=== PATIENT | male | born 1960 | race Caucasian/White ===

== ENCOUNTER 2018-03-02 15:50 | Emergency (ER) | payer MEDICARE, MEDICAID, SELFPAY ==
[2018-03-02 15:55] VITALS: BP 129/85; PULSE 84; RESP 16; TEMP 36.7; O2SAT 99
--- NOTE | 2018-03-02 17:19 | W.ED.GENAD ---
Discharge Plan Disposition Patient Disposition: HOME Condition: Fair Discharge Details Chief Complaint: Orthopedic Clinical Impression: Elbow pain, Right tennis elbow Primary Care Provider: Sedrick Brand ED Provider: Carlota Simms Home Meds and New Rx's Prescriptions: New ibuprofen 600 mg tablet 600 mg PO QID PRN (Reason: pain) Qty: 20 RF: 0 Continue levalbuterol tartrate [Xopenex HFA] 1 PUFF HFA aerosol inhaler 2 puff Inhalation .Q 6 HRS PRN RF: 0 nortriptyline 25 MG capsule 50 mg PO HS RF: 0 Discharge Instructions Instructions: Tennis Elbow Exercises (GEN), Tennis Elbow (ED) Additional Instructions: Encourage rest, ice, elevation. Tylenol (acetaminophen) 1000 mg every 6 hours as needed for discomfort. Please do not exceed 4000 mg of Tylenol daily. You may augment this with ibuprofen as prescribed, he may take 600 mg every 6 hours as needed for discomfort. Over the counter splint as discussed, this may be a strap splint as discussed. Please follow up within the next week for reevaluation with your primary care. If you develop fevers/chills, swelling, redness, increased pain or other new/worsening symptoms please seek care urgently once again. Referrals: Sedrick Brand MD [Primary Care Provider] - Discharge Data Discharge Date/Time-TO BE ENTERED AT DEPARTURE: 03/02/18 17:32 Medical Decision Making Patient presents today with c/c of right elbow pain x3 days. Reports that pain was of incidious onset. He points to the olecranon as area of discomfort but on exam, pain seems to be maximal over the lateral epicondyle. Has pain elicitied with supination against resistence. Full ROM, strength 5/5 in other testing. No palpable or visible deformity. No erythema, warmth or swelling. Patient afebrile and nontoxic appearing. Reports he feels otherwise well. 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 I am quesitoning if his repeatative movemens have caused onset of lateral epicondylitis as history and exam fit most closely with this diagnosis. Patient and I discussed bracing options, we do not carry the forearm strap that we have decided on to help with discomfort. Encouraged RICE We discussed new/worsening symptoms and when to seek care urgently once again. Advised f/u with PCP in one week forreevaluation if not immproved. Discussed the use of NSAIDS to help with inflammatory based process, patient and I did discuss pathology and expected course. Discussed activites to avoid. All of his questions and concerns were addressed, he isin agreement with this plan. When nursing staff discharged the patient he expressed being upset over his continued discomfort. Advised that I should have cut my arm off and I would get more disablity. I did not hear the patient say this nor was I aware he was still upset. Will attempt to call at home to reassure. HPI General Mode of arrival: ambulatory. Date/Time Provider Initiated Documentation: 03/02/18 16:10. Limitations to Documentation: no limitations. Information obtained by: patient. History of Present Illness 57 year old M presents to the emergency department with the chief complaint of right elbow pain, described as moderate, with intensity rated at 8. Quality is described as aching, and is localized to the right and upper extremity. Patient reports no radiation. Related Data Home Medications Medication Instructions Recorded Confirmed levalbuterol tartrate [Xopenex Hfa] 2 puff INHALATION .Q 6 HRS PRN 10/28/12 03/02/18 nortriptyline 50 mg PO HS 07/16/14 03/02/18 ibuprofen 600 mg PO QID PRN #20 tab 03/02/18 Previous Rx's Medication Instructions Recorded ibuprofen 600 mg PO QID PRN #20 tab 03/02/18 Allergies Allergy/AdvReac Type Severity Reaction Status Date / Time aspirin Allergy Intermediate Skin Rash Unverified 09/01/17 17:40 crab Allergy Anaphylaxsi Unverified 09/01/17 17:40 s hydrocodone [Hydrocodone] AdvReac Severe dizzy and Unverified 09/01/17 17:40 nausea lobster Allergy Anaphylaxsi Uncoded 09/01/17 17:40 s General Stated Complaint: Orthopedic BRAEDEN: 4 Review of Systems Constitutional Reports as per HPI, Denies chills, Denies fever(s), Denies headache(s) and Denies weakness ENT Denies headache(s) Respiratory Denies cough Musculoskeletal Reports as per HPI, Denies joint swelling, Denies limited range of motion, Denies numbness and Denies tingling Integumentary/Breasts Denies erythema, Denies rash, Denies skin pain, Denies skin swelling and Denies skin ulcer Neurologic Denies headache(s), Denies focal weakness, Denies numbness, Denies radicular pain, Denies sensory deficit, Denies tingling, Denies paresthesias and Denies weakness [facility] Social History Smoking/Tobacco Use Status: Current every day Exam Const General: cooperative, healthy appearing, comfortable, no acute distress, well developed and well groomed Nutritional Appearance: average body habitus Orientation: alert and awake Resp Effort & Inspection: normal respiratory effort, able to speak in complete sentences and no respiratory distress Cardio Rate: regular rate Rhythm: regular rhythm Skin General skin exam: no rashes or lesions noted, no ecchymosis, no erythema, no fluctuance and no induration Lesions: no lesions Rashes: no rashes Trauma: no lacerations or abrasions Neuro General: alert and awake Cognition: normal cognition Speech: speech normal Gait: normal gait Motor: muscle tone normal throughout and strength not 5/5 throughout (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 5/5 extension and flexion against ressitence of the right elbow. 5/5 pronation. With supination,, he has a sudden onset of discomfor limiting his strength to 4/5) Sensory Exam: no sensory deficits noted Extrem General: full ROM (right elbow, wrist, hand), normal capillary refill, normal exam except as noted, no joint enlargement, no clubbing, cyanosis or edema and normal gait Right upper extremity: full ROM, normal capillary refill, no joint enlargement and elbow/forearm Details: normal to inspection, tenderness Location: of the olecranon (this is area patient points to as area of discomfort but none elicited with palpation. No welling, erythema or warmth. no break in the skin), of the lateral epicondyle Details: with resisted supination and proximal forearm; not of the antecubital fossa, not of the mid-shaft forearm and not of the medial epicondyle, normal ROM and distal pulses intact; no swelling, no unusual warmth, no abrasions, no lacerations, no ecchymosis, no crepitus, no foreign bodies and no deformity Psych Appearance: grossly normal and well kempt Mental Status: mental status grossly normal Speech and Movement: speech and movement normal Course Vital Signs Temperature 36.7 C 03/02/18 15:55 Pulse 84 03/02/18 15:55 Respiratory Rate 16 03/02/18 15:55 Blood Pressure 129/85 03/02/18 15:55 Pulse Oximetry 99 03/02/18 15:55 Temperature 36.7 C 03/02/18 15:55 Temperature Source Temporal Artery Scan 03/02/18 15:55 Pulse 84 03/02/18 15:55 Respiratory Rate 16 03/02/18 15:55 Respiratory Effort 03/02/18 15:57 Blood Pressure 129/85 03/02/18 15:55 Blood Pressure Position Sitting 03/02/18 15:55 Pulse Oximetry 99 03/02/18 15:55 Oxygen Delivery Method Room Air 03/02/18 15:55 Oxygen Flow Rate 0 03/02/18 15:55 Pain Level 8 03/02/18 15:55
--- NOTE | 2018-03-02 17:22 | ED.GENADUL_ITS ---
Discharge Plan Disposition Patient Disposition: HOME Condition: Fair Discharge Details Chief Complaint: Orthopedic Clinical Impression: Elbow pain, Right tennis elbow Primary Care Provider: Sedrick Brand ED Provider: Carlota Simms Home Meds and New Rx's Prescriptions: New ibuprofen 600 mg tablet 600 mg PO QID PRN (Reason: pain) Qty: 20 RF: 0 Continue levalbuterol tartrate [Xopenex HFA] 1 PUFF HFA aerosol inhaler 2 puff Inhalation .Q 6 HRS PRN RF: 0 nortriptyline 25 MG capsule 50 mg PO HS RF: 0 Discharge Instructions Instructions: Tennis Elbow Exercises (GEN), Tennis Elbow (ED) Additional Instructions: Encourage rest, ice, elevation. Tylenol (acetaminophen) 1000 mg every 6 hours as needed for discomfort. Please do not exceed 4000 mg of Tylenol daily. You may augment this with ibuprofen as prescribed, he may take 600 mg every 6 hours as needed for discomfort. Over the counter splint as discussed, this may be a strap splint as discussed. Please follow up within the next week for reevaluation with your primary care. If you develop fevers/chills, swelling, redness, increased pain or other new/worsening symptoms please seek care urgently once again. Referrals: Sedrick Brand MD [Primary Care Provider] - Discharge Data Discharge Date/Time-TO BE ENTERED AT DEPARTURE: 03/02/18 17:32 Medical Decision Making Patient presents today with c/c of right elbow pain x3 days. Reports that pain was of incidious onset. He points to the olecranon as area of discomfort but on exam, pain seems to be maximal over the lateral epicondyle. Has pain elicitied with supination against resistence. Full ROM, strength 5/5 in other testing. No palpable or visible deformity. No erythema, warmth or swelling. Patient afebrile and nontoxic appearing. Reports he feels otherwise well. 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 I am quesitoning if his repeatative movemens have caused onset of lateral epicondylitis as history and exam fit most closely with this diagnosis. Patient and I discussed bracing options, we do not carry the forearm strap that we have decided on to help with discomfort. Encouraged RICE We discussed new/worsening symptoms and when to seek care urgently once again. Advised f/u with PCP in one week forreevaluation if not immproved. Discussed the use of NSAIDS to help with inflammatory based process, patient and I did discuss pathology and expected course. Discussed activites to avoid. All of his questions and concerns were addressed, he isin agreement with this plan. When nursing staff discharged the patient he expressed being upset over his continued discomfort. Advised that I should have cut my arm off and I would get more disablity. I did not hear the patient say this nor was I aware he was still upset. Will attempt to call at home to reassure. HPI General Mode of arrival: ambulatory . Date/Time Provider Initiated Documentation: 03/02/18 16:10 . Limitations to Documentation: no limitations . Information obtained by: patient . History of Present Illness 57 year old M presents to the emergency department with the chief complaint of right elbow pain, described as moderate, with intensity rated at 8. Quality is described as aching, and is localized to the right and upper extremity. Patient reports no radiation. Related Data Home Medications Medication Instructions Recorded Confirmed levalbuterol tartrate [Xopenex Hfa] 2 puff INHALATION .Q 6 HRS PRN 10/28/1212/11 nortriptyline 50 mg PO HS 07/16/14 03/02/18 ibuprofen 600 mg PO QID PRN #20 tab 03/02/18 Previous Rx's Medication Instructions Recorded ibuprofen 600 mg PO QID PRN #20 tab 03/02/18 Allergies Allergy/AdvReac Type Severity Reaction Status Date / Time aspirin Allergy Intermediate Skin Rash Unverified 09/01/17 17:40 crab Allergy Anaphylaxsi Unverified 09/01/17 17:40 s hydrocodone [Hydrocodone] AdvReac Severe dizzy and Unverified 09/01/17 17:40 nausea lobster Allergy Anaphylaxsi Uncoded 09/01/17 17:40 s General Stated Complaint: Orthopedic BRAEDEN: 4 Review of Systems Constitutional Reports as per HPI, Denies chills, Denies fever(s), Denies headache(s) and Denies weakness ENT Denies headache(s) Respiratory Denies cough Musculoskeletal Reports as per HPI, Denies joint swelling, Denies limited range of motion, Denies numbness and Denies tingling Integumentary/Breasts Denies erythema, Denies rash, Denies skin pain, Denies skin swelling and Denies skin ulcer Neurologic Denies headache(s), Denies focal weakness, Denies numbness, Denies radicular pain, Denies sensory deficit, Denies tingling, Denies paresthesias and Denies weakness [facility] Social History Smoking/Tobacco Use Status: Current every day Exam Const General: cooperative, healthy appearing, comfortable, no acute distress, well developed and well groomed Nutritional Appearance: average body habitus Orientation: alert and awake Resp Effort & Inspection: normal respiratory effort, able to speak in complete sentences and no respiratory distress Cardio Rate: regular rate Rhythm: regular rhythm Skin General skin exam: no rashes or lesions noted, no ecchymosis, no erythema, no fluctuance and no induration Lesions: no lesions Rashes: no rashes Trauma: no lacerations or abrasions Neuro General: alert and awake Cognition: normal cognition Speech: speech normal Gait: normal gait Motor: muscle tone normal throughout and strength not 5/5 throughout (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 5/5 extension and flexion against ressitence of the right elbow. 5/5 pronation. With supination,, he has a sudden onset of discomfor limiting his strength to 4/5) Sensory Exam: no sensory deficits noted Extrem General: full ROM (right elbow, wrist, hand), normal capillary refill, normal exam except as noted, no joint enlargement, no clubbing, cyanosis or edema and normal gait Right upper extremity: full ROM, normal capillary refill, no joint enlargement and elbow/forearm Details: normal to inspection, tenderness Location: of the olecranon (this is area patient points to as area of discomfort but none elicited with palpation. No welling, erythema or warmth. no break in the skin), of the lateral epicondyle Details: with resisted supination and proximal forearm ; not of the antecubital fossa, not of the mid-shaft forearm and not of the medial epicondyle, normal ROM and distal pulses intact; no swelling, no unusual warmth, no abrasions, no lacerations, no ecchymosis, no crepitus, no foreign bodies and no deformity Psych Appearance: grossly normal and well kempt Mental Status: mental status grossly normal Speech and Movement: speech and movement normal Course Vital Signs Temperature 36.7 C 03/02/18 15:55 Pulse 84 03/02/18 15:55 Respiratory Rate 16 03/02/18 15:55 Blood Pressure 129/85 03/02/18 15:55 Pulse Oximetry 99 03/02/18 15:55 Temperature 36.7 C 03/02/18 15:55 Temperature Source Temporal Artery Scan 03/02/18 15:55 Pulse 84 03/02/18 15:55 Respiratory Rate 16 03/02/18 15:55 Respiratory Effort 03/02/18 15:57 Blood Pressure 129/85 03/02/18 15:55 Blood Pressure Position Sitting 03/02/18 15:55 Pulse Oximetry 99 03/02/18 15:55 Oxygen Delivery Method Room Air 03/02/18 15:55 Oxygen Flow Rate 0 03/02/18 15:55 Pain Level 8 03/02/18 15:55
== END 2018-03-02 17:32 | disposition home or self-care (01) ==
PROVIDERS: Emergency Provider Physician Assistant; PCP General Practice
DX: M77.11 Lateral epicondylitis, right elbow (principal)
CPT/HCPCS: 99282

== ENCOUNTER 2018-03-07 08:36 | Emergency (ER) | payer MEDICARE, MEDICAID, SELFPAY ==
[2018-03-07] VITALS (20 sets, daily range): BP systolic 102–132; BP diastolic 74–85; PULSE 66–91; RESP 6–20; TEMP 36.6–36.7; O2SAT 93–99
--- NOTE | 2018-03-07 08:58 | DI.RAD_ITS ---
SYMPTOM/DIAGNOSIS: CHEST PAIN PA AND LATERAL CHEST: Comparison is made with 05/21/13. The heart size is normal. The lungs appear somewhat hyperinflated but are otherwise clear. No pneumothorax, infiltrate or effusion is seen. IMPRESSION: Emphysematous changes. No acute abnormality.
--- NOTE | 2018-03-07 08:59 | W.ED.GENAD ---
Discharge Plan Disposition Patient Disposition: HOME Condition: Improving Discharge Details Chief Complaint: Chest Pain Clinical Impression: COPD with acute exacerbation, Chest wall pain Primary Care Provider: Sedrick Brand ED Provider: Abbie Haines Home Meds and New Rx's Prescriptions: New prednisone 50 mg tablet 50 mg PO DAILY 4 Days Qty: 4 RF: 0 Continue levalbuterol tartrate [Xopenex HFA] 1 PUFF HFA aerosol inhaler 2 puff Inhalation .Q 6 HRS PRN RF: 0 nortriptyline 25 MG capsule 50 mg PO HS RF: 0 acetaminophen 500 mg Tablet 1,000 mg PO PRN PRNRF: 0 Discharge Instructions Instructions: COPD (Chronic Obstructive Pulmonary Disease) (ED), Chest Wall Pain (ED) Additional Instructions: Use your Xopenex inhaler as needed and directed for any shortness of breath. Take the steroids until finished. Take Tylenol or Motrin as needed and directed for pain. Call your primary care doctor's office today to schedule follow-up appointment for reevaluation. Return to the emergency department with any worsening or new concerning symptoms. Discharge Data Discharge Date/Time-TO BE ENTERED AT DEPARTURE: 03/07/18 10:50 Discharge Physician: Abbie Haines Medical Decision Making 57 yo M w/ a COPD who presents for chest tightness since yesterday morning. Pain worse with movement. Denies any associated symptoms of fever, cough, shortness of breath, nausea, dizziness. Well score probability low. Vitals within normal limits. Patient appears nontoxic and in no acute distress no anterior chest tenderness, rash or evidence of trauma. Diminished breath sounds throughout with minimal wheezing right chest. Differential diagnosis includes musculoskeletal chest wall pain, costochondritis, COPD exacerbation, PE, ACS. Based on symptom presentation, appears most likely musculoskeletal. But also be an acute COPD exacerbation, but patient denies any shortness of breath and has normal oxygen saturation respiratory rate and does not appear in any acute respiratory distress be due to COPD. Will do a cardiac workup, give a dose of Toradol and a DuoNeb and reassess. 0845 --EKG notes a rate of 71, sinus, no acute ST elevation or depression, QTC 389, QRS 102. 1015 --labs reviewed and essentially unremarkable. Troponin negative. D-dimer negative. White blood cell count 5. Magnesium 1.7, will replete with p.o. dose. Chest x-ray negative for acute findings, notes emphysematous changes. 1020 --patient states he feels much better and is requesting to go home. Discussed with patient the recommendation to stay for a second troponin at 12 PM but he is refusing. I d/w patient that his symptom presentation is likely mostly consistent with a musculoskeletal etiology versus an acute COPD exacerbation versus costochondritis rather than an acute coronary etiology, but with patient's age and history, would still recommend a second troponin. The risks of and disability due to a possible cardiac etiology were explained and patient fully understands. He demonstrates capacity to make decisions. We engaged in shared decision making that although his symptom presentation may be muscular or related to his COPD, he is recommended to call his primary care doctor's office today to schedule follow-up appointment for reevaluation within the next week and to return immediately to the emergency department with any worsening or new concerning symptoms. HPI General Mode of arrival: ambulatory. Date/Time Provider Initiated Documentation: 03/07/18 08:54. Limitations to Documentation: no limitations. Information obtained by: patient. HPI Narrative: Patient is a 57-year-old male who presents the ED with a complaint of anterior chest tightness since yesterday morning. Patient states the pain movement and better with rest patient states the symptoms started upon awakening. He states the pain is 5/10 at rest and 7.5/10 with movement. Patient is taken Tylenol for pain without relief. He denies any fever, rash, radiation of pain, shortness of breath, cough, nausea, dizziness, recent travel, recent surgery, leg pain or swelling or any known injury. Past medical history: COPD next Surgical history: Appendectomy Social history: Smokes tobacco times 30 years, denies alcohol or drug use Medications: Xopenex as needed, nortriptyline to help with sleep Allergies: Aspirin (rash), Vicodin (vomit, lightheadedness) PCP; Dr. Brand Related Data Home Medications Medication Instructions Recorded Confirmed levalbuterol tartrate [Xopenex HFA] 2 puff INHALATION .Q 6 HRS PRN 10/28/12 03/07/18 nortriptyline 50 mg PO HS 07/16/14 03/07/18 acetaminophen 1,000 mg PO PRN PRN 03/07/18 03/07/18 prednisone 50 mg PO DAILY 4 Days #4 tab 03/07/18 Previous Rx's Medication Instructions Recorded prednisone 50 mg PO DAILY 4 Days #4 tab 03/07/18 Allergies Allergy/AdvReac Type Severity Reaction Status Date / Time aspirin Allergy Intermediate Skin Rash Unverified 03/07/18 08:55 crab Allergy Anaphylaxsi Unverified 03/07/18 08:55 s hydrocodone [Hydrocodone] AdvReac Severe dizzy and Unverified 03/07/18 08:55 nausea lobster Allergy Anaphylaxsi Uncoded 03/07/18 08:55 s General Stated Complaint: Chest Pain BRAEDEN: 2 Review of Systems Review of Systems All systems reviewed & are unremarkable except as noted in HPI and below Constitutional Denies chills, Denies excessive sweating, Denies fatigue, Denies fever(s), Denies weakness and Denies weight loss Eyes Reports system reviewed and no additional complaints, except as docu and Denies blurry vision ENT Denies vertigo, Denies dizziness, Denies otalgia, Denies nasal congestion, Denies sore throat and Denies throat swelling Cardiovascular Reports chest pain, Denies syncope, Denies rapid heart rate and Denies dyspnea Respiratory Denies dyspnea Gastrointestinal Denies abdominal pain, Denies diarrhea and Denies vomiting Genitourinary Denies hematuria, Denies dysuria and Denies flank pain Musculoskeletal Denies back pain and Denies joint swelling Integumentary/Breasts Denies lesions and Denies rash Neurologic Denies behavioral changes, Denies confusion, Denies vertigo, Denies dizziness, Denies syncope and Denies weakness Psychiatric Denies behavioral changes, Denies confusion and Denies depression Endocrine Denies excessive sweating and Denies fatigue Hematologic/Lymphatic Denies easy bruising and Denies lymphadenopathy Allergic/Immunologic Denies throat swelling [facility] Social History Smoking/Tobacco Use Status: Current every day Exam Const General: cooperative and healthy appearing Orientation: alert and awake [facility] Head: normal to inspection Ears: hearing grossly normal bilaterally, external ears normal and TM's normal bilaterally General nose exam: external nose normal Face and sinus: normal facial exam Mouth: oral mucosae normal Teeth and gingiva: dentition normal Throat: posterior oropharynx normal Eyes General: appearance normal, both eyes and all related structures Eyelids: eyelids normal Pupils: PERRL EOM: EOM intact bilaterally Neck Neck: normal visual inspection Lymphatic: no lymphadenopathy noted Chest Chest: normal inspection of the chest, normal palpation of entire chest wall, no crepitus, no tenderness and No rash Resp Effort & Inspection: normal respiratory effort and able to speak in complete sentences Auscultation: clear to auscultation bilaterally Cardio Rate: regular rate Rhythm: regular rhythm GI Inspection: normal to inspection Palpation: soft, not firm, no guarding, no hepatosplenomegaly, no masses and nontender Auscultation: normal bowel sounds Back/Spine/Pelvis Back: no CVA tenderness Skin General skin exam: no rashes or lesions noted Neuro General: alert and awake Cognition: normal cognition Speech: speech normal Gait: normal gait Motor: muscle tone normal throughout Sensory Exam: no sensory deficits noted Extrem General: normal to inspection, full ROM, normal capillary refill, no calf tenderness and no edema Psych Appearance: grossly normal Mental Status: mental status grossly normal Speech and Movement: speech and movement normal Affect: normal affect Thought Process: normal Course Vital Signs Temperature 97.9 F 03/07/18 08:49 Pulse 76 03/07/18 08:49 Respiratory Rate 12 03/07/18 08:49 Blood Pressure 132/75 03/07/18 08:49 Pulse Oximetry 97 03/07/18 08:49 Temperature 97.9 F 03/07/18 08:49 Temperature Source Skin 03/07/18 08:49 Pulse 76 03/07/18 08:49 Respiratory Rate 14 03/07/18 08:51 Respiratory Effort 03/07/18 08:51 Respiratory Depth Normal 03/07/18 08:51 Respiratory Pattern Normal 03/07/18 08:51 Blood Pressure 132/75 03/07/18 08:49 Pulse Oximetry 97 03/07/18 08:49 Oxygen Delivery Method Room Air 03/07/18 08:49 Oxygen Flow Rate 0 03/07/18 08:49 Pain Level 5 03/07/18 08:51
[2018-03-07 09:18] LABS: Abs Immature Grans 0.01 k/cumm (0.0-0.09); Absolute Basophil Count 0.01 k/cumm (0.0-0.2); Absolute Eosinophil Count 0.06 k/cumm (0.0-0.7); Absolute Lymphocyte Count 1.56 k/cumm (1.2-3.4); Absolute Monocyte Count 0.44 k/cumm (0.11-0.7); Basophils % 0.2; Eosinophils % 1.1; HCT 36.9 % (40.0-50.0); HGB 13.2 g/dL (13.5-17.5); Immature Grans % 0.2; Lymphocytes % 28.5; Mean Corp. HGB Concentration 35.8 g/dL (32.0-36.0); Mean Corpuscular Hemoglobin 33.8 pg (27.0-33.0); Mean Corpuscular Volume 94.6 fL (80-95); Mean Platelet Volume 9.2 fL (8.0-11.0); Platelet Count 219 x1000/uL (130-400); RBC Distribution Width 12.9 % (11.8-14.1); White Blood Cell Count 5.48 k/cumm (4.4-10.8)
[2018-03-07 09:34] LABS: ALT 21 U/L (12-78); AST 14 U/L (15-37); Albumin 3.8 g/dL (3.4-5.0); Alkaline Phosphatase 81 U/L (46-116); Anion Gap 6.5 mmol/L (3-11); BUN 13 mg/dL (7-18); Bilirubin, Direct 0.15 mg/dL (0.00-0.20); Bilirubin, Total 0.8 mg/dL (0.2-1.0); CO2 29.5 mmol/L (21.0-32.0); CREATININE 0.87 mg/dL (0.70-1.30); Calcium 8.6 mg/dL (8.5-10.1); Chloride 104 mmol/L (98-107); Glucose 107 mg/dL (70-100); Magnesium 1.7 mg/dL (1.8-2.4); Potassium 4.3 mmol/L (3.5-5.1); Sodium 140 mmol/L (136-145); Total Protein 7.1 g/dL (6.4-8.2)
[2018-03-07 09:37] LABS: Troponin I < 0.02 ng/mL (0.00-0.06)
[2018-03-07] MEDS: Albuterol/Ipratropium 3 ML UPD VIAL UPD (09:38)
[2018-03-07] MEDS: Ketorolac 30 MG/ML VIAL IVP (09:39)
[2018-03-07 09:59] LABS: D-Dimer 285 ng/mlFEU (<500)
[2018-03-07] MEDS: predniSONE 20 MG TAB 60 MG PO (10:37)
[2018-03-07] MEDS: Magnesium Oxide 400 MG TAB PO (10:52)
== END 2018-03-07 10:50 | disposition home or self-care (01) ==
PROVIDERS: Emergency Provider Physician Assistant; PCP General Practice
DX: J44.1 Chronic obstructive pulmonary disease with (acute) exacerbation (principal); R07.89 Other chest pain; F17.210 Nicotine dependence, cigarettes, uncomplicated
CPT/HCPCS: 36415; 80053; 80076; 93005; 94640; 96374; 99285; 71046; 83735; 84484; 85025; 85379; 93010; J1885; J7512; J7620

== ENCOUNTER 2018-04-11 12:21 | Emergency (ER) | payer MEDICARE, MEDICAID, SELFPAY ==
[2018-04-11 12:26] VITALS: BP 130/89; PULSE 100; RESP 16; TEMP 37.1; O2SAT 98
--- NOTE | 2018-04-11 12:35 | W.ED.GENAD ---
Discharge Plan Disposition Patient Disposition: HOME Condition: Stable Discharge Details Chief Complaint: Orthopedic Clinical Impression: Right elbow tendinitis Primary Care Provider: Sedrick Brand ED Provider: Abbie Haines Home Meds and New Rx's Prescriptions: Continue levalbuterol tartrate [Xopenex HFA] 1 PUFF HFA aerosol inhaler 2 puff Inhalation .Q 6 HRS PRN RF: 0 nortriptyline 25 MG capsule 50 mg PO HS RF: 0 acetaminophen 500 mg Tablet 1,000 mg PO PRN PRNRF: 0 Discharge Instructions Instructions: Tendinitis (ED) Additional Instructions: Rest and apply ice to the affected area several times daily for 20 minutes at a time. Alternate Motrin and Tylenol as needed and directed for pain. Follow-up with your primary care doctor in 1 week for reevaluation as needed. Return to the emergency department any worsening or new concerning symptoms. Discharge Data Discharge Physician: Abbie Haines Medical Decision Making 57-year-old male who presents with right elbow pain for the past week that started after changing tires at home. Pain worse with extension and supination/pronation. Patient is right-hand dominant. Vitals within normal limits. No evidence of trauma, deformity, or infection. Right elbow is normal to inspection but has reproducible pain with extension and palpation and cubital tunnel and flexor tendon insertion at radial head. Neurovascularly intact. Motor/sensory grossly intact. Strength right upper extremity 5/5. Appears consistent with tendinitis. Patient offered x-ray but declines. Chart notes an allergy to aspirin which causes skin rash. He denies respiratory symptoms or anaphylaxis and states he has tolerated ibuprofen without difficulty in the past. He was offered dose of ibuprofen but declines. He is instructed on the importance of rest, ice and NSAIDs. Instructed to follow-up with primary care doctor in 1 week for reevaluation if needed and to return here if worse. HPI General Mode of arrival: ambulatory. Date/Time Provider Initiated Documentation: 04/11/18 12:22. Limitations to Documentation: no limitations. Information obtained by: patient. HPI Narrative: Patient is a 57yo M who presents for R elbow pain for the past week. Patient states he noticed the pain approximately 30 minutes after changing the tires on his car. Patient states the pain is worse with extending his elbow and when pouring coffee. Patient denies any blunt injury or fall onto right elbow. He denies fever or elbow swelling. Patient has been taking Tylenol for pain without relief. Denies numbness or weakness in arm. Past medical history: COPD, sleep disorder, chronic headaches, chronic shoulder and back pain Surgical history: Appendectomy Social history: Smokes tobacco, denies alcohol or drugs Medications: See list Allergies: Aspirin (rash), Hydrocodone (nausea, dizziness), crab/lobster (anaphylaxis) PCP: Dr. Brand Related Data Home Medications Medication Instructions Recorded Confirmed levalbuterol tartrate [Xopenex HFA] 2 puff INHALATION .Q 6 HRS PRN 10/28/12 04/11/18 nortriptyline 50 mg PO HS 07/16/14 04/11/18 acetaminophen 1,000 mg PO PRN PRN 03/07/18 04/11/18 Allergies Allergy/AdvReac Type Severity Reaction Status Date / Time aspirin Allergy Intermediate Skin Rash Unverified 04/11/18 12:33 crab Allergy Anaphylaxsi Unverified 04/11/18 12:33 s hydrocodone [Hydrocodone] AdvReac Severe dizzy and Unverified 04/11/18 12:33 nausea lobster Allergy Anaphylaxsi Uncoded 04/11/18 12:33 s General Stated Complaint: Orthopedic BRAEDEN: 4 Review of Systems Review of Systems All systems reviewed & are unremarkable except as noted in HPI and below Constitutional Reports as per HPI, Denies chills and Denies fever(s) Eyes Denies blurry vision ENT Denies dizziness, Denies sore throat and Denies throat swelling Cardiovascular Denies chest pain and Denies dyspnea Respiratory Denies dyspnea Gastrointestinal Denies abdominal pain, Denies diarrhea and Denies vomiting Genitourinary Denies hematuria and Denies dysuria Musculoskeletal Denies back pain and Denies numbness Integumentary/Breasts Denies lesions and Denies rash Neurologic Denies dizziness and Denies numbness Allergic/Immunologic Denies throat swelling Exam Const General: cooperative, healthy appearing and no acute distress HENMT Head: normal to inspection Mouth: oral mucosae normal Eyes General: appearance normal, both eyes and all related structures Neck Neck: normal visual inspection Resp Effort & Inspection: normal respiratory effort and able to speak in complete sentences Cardio Rate: regular rate Skin General skin exam: no rashes or lesions noted Neuro General: alert, awake and oriented x3 Cognition: normal cognition Speech: speech normal Motor: muscle tone normal throughout and strength 5/5 throughout (Normal radial/ulnar/median nerve function b/l ) Extrem General: normal to inspection and full ROM Right upper extremity: elbow/forearm (Tenderness to palpation in cubital tunnel and overlying radial head/near common flexor tendon insertion. No ecchymoses/edema/abrasions/induration/fluctuance/deformity to b/l epicondyles/olecranon. ) Psych Appearance: grossly normal Affect: normal affect Course Vital Signs Temperature 98.8 F 04/11/18 12:26 Pulse 100 H 04/11/18 12:26 Respiratory Rate 16 04/11/18 12:26 Blood Pressure 130/89 04/11/18 12:26 Pulse Oximetry 98 04/11/18 12:26 Temperature 98.8 F 04/11/18 12:26 Temperature Source Skin 04/11/18 12:26 Pulse 100 H 04/11/18 12:26 Respiratory Rate 16 04/11/18 12:26 Respiratory Effort 04/11/18 12:31 Blood Pressure 130/89 04/11/18 12:26 Blood Pressure Position Sitting 04/11/18 12:26 Pulse Oximetry 98 04/11/18 12:26 Oxygen Delivery Method Room Air 04/11/18 12:26 Oxygen Flow Rate 0 04/11/18 12:26 Pain Level 6 04/11/18 12:32
[2018-04-11 12:44] VITALS: BP 130/89; PULSE 100; RESP 16; TEMP 37.1; O2SAT 98
--- NOTE | 2018-04-11 12:44 | ED.GENADUL_ITS ---
Discharge Plan Disposition Patient Disposition: HOME Condition: Stable Discharge Details Chief Complaint: Orthopedic Clinical Impression: Right elbow tendinitis Primary Care Provider: Sedrick Brand ED Provider: Abbie Haines Home Meds and New Rx's Prescriptions: Continue levalbuterol tartrate [Xopenex HFA] 1 PUFF HFA aerosol inhaler 2 puff Inhalation .Q 6 HRS PRN RF: 0 nortriptyline 25 MG capsule 50 mg PO HS RF: 0 acetaminophen 500 mg Tablet 1,000 mg PO PRN PRNRF: 0 Discharge Instructions Instructions: Tendinitis (ED) Additional Instructions: Rest and apply ice to the affected area several times daily for 20 minutes at a time. Alternate Motrin and Tylenol as needed and directed for pain. Follow-up with your primary care doctor in 1 week for reevaluation as needed. Return to the emergency department any worsening or new concerning symptoms. Discharge Data Discharge Physician: Abbie Haines Medical Decision Making 57-year-old male who presents with right elbow pain for the past week that started after changing tires at home. Pain worse with extension and supination/ pronation. Patient is right-hand dominant. Vitals within normal limits. No evidence of trauma, deformity, or infection. Right elbow is normal to inspection but has reproducible pain with extension and palpation and cubital tunnel and flexor tendon insertion at radial head. Neurovascularly intact. Motor/sensory grossly intact. Strength right upper extremity 5/5. Appears consistent with tendinitis. Patient offered x-ray but declines. Chart notes an allergy to aspirin which causes skin rash. He denies respiratory symptoms or anaphylaxis and states he has tolerated ibuprofen without difficulty in the past. He was offered dose of ibuprofen but declines. He is instructed on the importance of rest, ice and NSAIDs. Instructed to follow-up with primary care doctor in 1 week for reevaluation if needed and to return here if worse. HPI General Mode of arrival: ambulatory . Date/Time Provider Initiated Documentation: 04/11/18 12:22 . Limitations to Documentation: no limitations . Information obtained by: patient . HPI Narrative: Patient is a 57yo M who presents for R elbow pain for the past week. Patient states he noticed the pain approximately 30 minutes after changing the tires on his car. Patient states the pain is worse with extending his elbow and when pouring coffee. Patient denies any blunt injury or fall onto right elbow. He denies fever or elbow swelling. Patient has been taking Tylenol for pain without relief. Denies numbness or weakness in arm. Past medical history: COPD, sleep disorder, chronic headaches, chronic shoulder and back pain Surgical history: Appendectomy Social history: Smokes tobacco, denies alcohol or drugs Medications: See list Allergies: Aspirin (rash), Hydrocodone (nausea, dizziness), crab/lobster ( anaphylaxis) PCP: Dr. Brand Related Data Home Medications Medication Instructions Recorded Confirmed levalbuterol tartrate [Xopenex HFA] 2 puff INHALATION .Q 6 HRS PRN 10/28/12 nortriptyline 50 mg PO HS 07/16/14 04/11/18 acetaminophen 1,000 mg PO PRN PRN 03/07/18 04/11/18 Allergies Allergy/AdvReac Type Severity Reaction Status Date / Time aspirin Allergy Intermediate Skin Rash Unverified 04/11/18 12:33 crab Allergy Anaphylaxsi Unverified 04/11/18 12:33 s hydrocodone [Hydrocodone] AdvReac Severe dizzy and Unverified 04/11/18 12:33 nausea lobster Allergy Anaphylaxsi Uncoded 04/11/18 12:33 s General Stated Complaint: Orthopedic BRAEDEN: 4 Review of Systems Review of Systems All systems reviewed & are unremarkable except as noted in HPI and below Constitutional Reports as per HPI, Denies chills and Denies fever(s) Eyes Denies blurry vision ENT Denies dizziness, Denies sore throat and Denies throat swelling Cardiovascular Denies chest pain and Denies dyspnea Respiratory Denies dyspnea Gastrointestinal Denies abdominal pain, Denies diarrhea and Denies vomiting Genitourinary Denies hematuria and Denies dysuria Musculoskeletal Denies back pain and Denies numbness Integumentary/Breasts Denies lesions and Denies rash Neurologic Denies dizziness and Denies numbness Allergic/Immunologic Denies throat swelling Exam Const General: cooperative, healthy appearing and no acute distress HENMT Head: normal to inspection Mouth: oral mucosae normal Eyes General: appearance normal, both eyes and all related structures Neck Neck: normal visual inspection Resp Effort & Inspection: normal respiratory effort and able to speak in complete sentences Cardio Rate: regular rate Skin General skin exam: no rashes or lesions noted Neuro General: alert, awake and oriented x3 Cognition: normal cognition Speech: speech normal Motor: muscle tone normal throughout and strength 5/5 throughout (Normal radial/ ulnar/median nerve function b/l ) Extrem General: normal to inspection and full ROM Right upper extremity: elbow/forearm (Tenderness to palpation in cubital tunnel and overlying radial head/near common flexor tendon insertion. No ecchymoses/ edema/abrasions/induration/fluctuance/deformity to b/l epicondyles/olecranon. ) Psych Appearance: grossly normal Affect: normal affect Course Vital Signs Temperature 98.8 F 04/11/18 12:26 Pulse 100 H 04/11/18 12:26 Respiratory Rate 16 04/11/18 12:26 Blood Pressure 130/89 04/11/18 12:26 Pulse Oximetry 98 04/11/18 12:26 Temperature 98.8 F 04/11/18 12:26 Temperature Source Skin 04/11/18 12:26 Pulse 100 H 04/11/18 12:26 Respiratory Rate 16 04/11/18 12:26 Respiratory Effort 04/11/18 12:31 Blood Pressure 130/89 04/11/18 12:26 Blood Pressure Position Sitting 04/11/18 12:26 Pulse Oximetry 98 04/11/18 12:26 Oxygen Delivery Method Room Air 04/11/18 12:26 Oxygen Flow Rate 0 04/11/18 12:26 Pain Level 6 04/11/18 12:32
== END 2018-04-11 12:44 | disposition home or self-care (01) ==
LOC: ER 14:01
PROVIDERS: Emergency Provider Physician Assistant; PCP General Practice
DX: M67.824 Other specified disorders of tendon, left elbow (principal); X50.9XXA Other and unspecified overexertion or strenuous movements or postures, initial encounter; J44.9 Chronic obstructive pulmonary disease, unspecified; F17.210 Nicotine dependence, cigarettes, uncomplicated
CPT/HCPCS: 99282

== ENCOUNTER 2018-05-17 15:47 | Emergency (ER) | payer MEDICARE, MEDICAID, SELFPAY ==
[2018-05-17 15:50] VITALS: BP 126/80; PULSE 79; RESP 16; TEMP 36.8; O2SAT 99
--- NOTE | 2018-05-17 15:54 | NUR.NOTE ---
pt. reaches out to picker tender helper coat off the ground and carried coat with right arm.
--- NOTE | 2018-05-17 16:35 | W.ED.GENAD ---
Discharge Plan Disposition Patient Disposition: HOME Condition: Stable Discharge Details Chief Complaint: Orthopedic Clinical Impression: Right elbow tendinitis Primary Care Provider: Sedrick Brand ED Provider: Abbie Haines Home Meds and New Rx's Prescriptions: New ibuprofen 600 mg tablet 600 mg PO QID PRN (Reason: pain) Qty: 20 RF: 0 Continued levalbuterol tartrate [Xopenex HFA] 1 PUFF HFA aerosol inhaler 2 puff Inhalation .Q 6 HRS PRN RF: 0 nortriptyline 25 MG capsule 50 mg PO HS RF: 0 acetaminophen 500 mg Tablet 1,000 mg PO PRN PRNRF: 0 Discharge Instructions Instructions: Tendinitis (ED) Additional Instructions: Rest and ice right elbow as much as possible. Alternate Tylenol and Motrin as needed and directed for pain. Call orthopedics to schedule follow-up appointment for reevaluation. Return immediately to the emergency department any worsening or new concerning symptoms. Referrals: Amandeep Hoffman MD [ [facility] STAFF PHYSICIAN] - Discharge Data Discharge Physician: Abbie Haines Medical Decision Making 57-year-old male who presents with chronic right elbow pain for the past month. Seen here last month for the same complaint and diagnosed with tendinitis and advised to take ibuprofen. Patient denies any numbness, weakness or tingling of extremity. Denies any new injury or fever peer Patient presents for persistent and worsening pain in groove inferior to lateral epicondyle of elbow w/o evidence of trauma, infection, rash. Pain reproducible in groove inferior to lateral epicondyle with clenching right fist, as well as extending out right upper extremity. Neurovascular intact. Motor/sensory grossly intact. At this point in time, history still appears consistent with a likely tendinitis/tennis elbow. Discussed with patient that symptoms may persist for several months due to repetitive movement once tendinitis begins. Patient was seen here last month for same and refused x-ray at that time. Patient was offered CT scan at this time and declines I would rather first proceed with x-ray. Will give a dose of ibuprofen and ice and send for x-ray. 1709 --right elbow xray negative. Patient instructed on the importance of rest and ice. Patient instructed to alternate Tylenol and motrin for pain. Will place patient on orthopedic f/u list for re-evaluation. Pt instructed to return here with worsening or new concerning symptoms. HPI General Mode of arrival: ambulatory. Date/Time Provider Initiated Documentation: 05/17/18 15:52. Limitations to Documentation: no limitations. Information obtained by: patient. HPI Narrative: Patient is a 57-year-old male who presents with right elbow pain for the past month. Patient was seen here last month for the same complaint after changing a tire and developed right elbow pain. He was noticed with tendinitis at that time and advised to take ibuprofen and rest. Patient states he has had some relief with the ibuprofen but states his symptoms are worse with rest and better with movement. Patient states the activities which bother him the most are holding and filling a pot of coffee and reaching his arm out for tv remote. States he recently ran out of ibuprofen and was taking tylenol with some relief. States he has not been using ice. Denies any new injury and states overall he has been resting his elbow more which has been making his pain worse. Denies fever. Related Data Home Medications Medication Instructions Recorded Confirmed levalbuterol tartrate [Xopenex HFA] 2 puff INHALATION .Q 6 HRS PRN 10/28/12 05/17/18 nortriptyline 50 mg PO HS 07/16/14 05/17/18 acetaminophen 1,000 mg PO PRN PRN 03/07/18 05/17/18 ibuprofen 600 mg PO QID PRN #20 tab 05/17/18 Previous Rx's Medication Instructions Recorded ibuprofen 600 mg PO QID PRN #20 tab 05/17/18 Allergies Allergy/AdvReac Type Severity Reaction Status Date / Time aspirin Allergy Intermediate Skin Rash Unverified 05/17/18 15:52 crab Allergy Anaphylaxsi Unverified 05/17/18 15:52 s hydrocodone [Hydrocodone] AdvReac Severe dizzy and Unverified 05/17/18 15:52 nausea lobster Allergy Anaphylaxsi Uncoded 05/17/18 15:52 s General Stated Complaint: Orthopedic BRAEDEN: 5 Review of Systems Review of Systems All systems reviewed & are unremarkable except as noted in HPI and below PFSH Medical History COPD (chronic obstructive pulmonary disease) (Chronic) Obstructive sleep apnea (Chronic) Surgical History History of appendectomy (Chronic) Social History Smoking/Tobacco Use Status: Current every day alcohol intake: current alcohol intake frequency: a few times a month substance use type: does not use Exam Const General: cooperative, healthy appearing and no acute distress HENMT Head: normal to inspection Mouth: oral mucosae normal Eyes General: appearance normal, both eyes and all related structures Neck Neck: normal visual inspection Resp Effort & Inspection: normal respiratory effort and able to speak in complete sentences Cardio Rate: regular rate Skin General skin exam: no rashes or lesions noted Neuro General: alert, awake and oriented x3 Motor: muscle tone normal throughout Extrem Right upper extremity: shoulder/upper arm Details: normal to inspection and normal ROM; no tenderness and no swelling, elbow/forearm (pain reproducible with clenching fist with elbow flexed. ) Details: normal to inspection and normal ROM; no tenderness, no swelling, no unusual warmth, no abrasions, no lacerations, no ecchymosis, no crepitus and no deformity, wrist Details: normal to inspection and normal ROM and hand Details: normal to inspection, neurosensory exam normal and vascular exam Details: radial pulse present and normal capillary refill Psych Appearance: grossly normal Affect: normal affect Course Vital Signs Temperature 98.2 F 05/17/18 15:50 Pulse 79 05/17/18 15:50 Respiratory Rate 16 05/17/18 15:50 Blood Pressure 126/80 05/17/18 15:50 Pulse Oximetry 99 05/17/18 15:50 Temperature 98.2 F 05/17/18 15:50 Temperature Source Oral 05/17/18 15:50 Pulse 79 05/17/18 15:50 Respiratory Rate 16 05/17/18 15:50 Respiratory Effort Non-Labored 05/17/18 15:53 Blood Pressure 126/80 05/17/18 15:50 Blood Pressure Position Sitting 05/17/18 15:50 Pulse Oximetry 99 05/17/18 15:50 Oxygen Delivery Method Room Air 05/17/18 15:50 Oxygen Flow Rate 0 05/17/18 15:50 Pain Level 10 05/17/18 15:50
[2018-05-17] MEDS: Ibuprofen 600 MG TAB PO (16:40)
--- NOTE | 2018-05-17 16:48 | ED.GENADUL_ITS ---
Discharge Plan Disposition Patient Disposition: HOME Condition: Stable Discharge Details Chief Complaint: Orthopedic Clinical Impression: Right elbow tendinitis Primary Care Provider: Sedrick Brand ED Provider: Abbie Haines Home Meds and New Rx's Prescriptions: New ibuprofen 600 mg tablet 600 mg PO QID PRN (Reason: pain) Qty: 20 RF: 0 Continued levalbuterol tartrate [Xopenex HFA] 1 PUFF HFA aerosol inhaler 2 puff Inhalation .Q 6 HRS PRN RF: 0 nortriptyline 25 MG capsule 50 mg PO HS RF: 0 acetaminophen 500 mg Tablet 1,000 mg PO PRN PRNRF: 0 Discharge Instructions Instructions: Tendinitis (ED) Additional Instructions: Rest and ice right elbow as much as possible. Alternate Tylenol and Motrin as needed and directed for pain. Call orthopedics to schedule follow-up appointment for reevaluation. Return immediately to the emergency department any worsening or new concerning symptoms. Referrals: Amandeep Hoffman MD [ [facility] STAFF PHYSICIAN] - Discharge Data Discharge Physician: Abbie Haines Medical Decision Making 57-year-old male who presents with chronic right elbow pain for the past month. Seen here last month for the same complaint and diagnosed with tendinitis and advised to take ibuprofen. Patient denies any numbness, weakness or tingling of extremity. Denies any new injury or fever peer Patient presents for persistent and worsening pain in groove inferior to lateral epicondyle of elbow w/o evidence of trauma, infection, rash. Pain reproducible in groove inferior to lateral epicondyle with clenching right fist, as well as extending out right upper extremity. Neurovascular intact. Motor/sensory grossly intact. At this point in time, history still appears consistent with a likely tendinitis /tennis elbow. Discussed with patient that symptoms may persist for several months due to repetitive movement once tendinitis begins. Patient was seen here last month for same and refused x-ray at that time. Patient was offered CT scan at this time and declines I would rather first proceed with x-ray. Will give a dose of ibuprofen and ice and send for x-ray. 1709 --right elbow xray negative. Patient instructed on the importance of rest and ice. Patient instructed to alternate Tylenol and motrin for pain. Will place patient on orthopedic f/u list for re-evaluation. Pt instructed to return here with worsening or new concerning symptoms. HPI General Mode of arrival: ambulatory . Date/Time Provider Initiated Documentation: 05/17/18 15:52 . Limitations to Documentation: no limitations . Information obtained by: patient . HPI Narrative: Patient is a 57-year-old male who presents with right elbow pain for the past month. Patient was seen here last month for the same complaint after changing a tire and developed right elbow pain. He was noticed with tendinitis at that time and advised to take ibuprofen and rest. Patient states he has had some relief with the ibuprofen but states his symptoms are worse with rest and better with movement. Patient states the activities which bother him the most are holding and filling a pot of coffee and reaching his arm out for tv remote. States he recently ran out of ibuprofen and was taking tylenol with some relief. States he has not been using ice. Denies any new injury and states overall he has been resting his elbow more which has been making his pain worse. Denies fever. Related Data Home Medications Medication Instructions Recorded Confirmed levalbuterol tartrate [Xopenex HFA] 2 puff INHALATION .Q 6 HRS PRN 10/28/12 05/17/18 nortriptyline 50 mg PO HS 07/16/14 05/17/18 acetaminophen 1,000 mg PO PRN PRN 03/07/18 05/17/18 ibuprofen 600 mg PO QID PRN #20 tab 05/17/18 Previous Rx's Medication Instructions Recorded ibuprofen 600 mg PO QID PRN #20 tab 05/17/18 Allergies Allergy/AdvReac Type Severity Reaction Status Date / Time aspirin Allergy Intermediate Skin Rash Unverified 05/17/18 15:52 crab Allergy Anaphylaxsi Unverified 05/17/18 15:52 s hydrocodone [Hydrocodone] AdvReac Severe dizzy and Unverified 05/17/18 15:52 nausea lobster Allergy Anaphylaxsi Uncoded 05/17/18 15:52 s General Stated Complaint: Orthopedic BRAEDEN: 5 Review of Systems Review of Systems All systems reviewed & are unremarkable except as noted in HPI and below PFSH Medical History COPD (chronic obstructive pulmonary disease) (Chronic) Obstructive sleep apnea (Chronic) Surgical History History of appendectomy (Chronic) Social History Smoking/Tobacco Use Status: Current every day alcohol intake: current alcohol intake frequency: a few times a month substance use type: does not use Exam Const General: cooperative, healthy appearing and no acute distress HENMT Head: normal to inspection Mouth: oral mucosae normal Eyes General: appearance normal, both eyes and all related structures Neck Neck: normal visual inspection Resp Effort & Inspection: normal respiratory effort and able to speak in complete sentences Cardio Rate: regular rate Skin General skin exam: no rashes or lesions noted Neuro General: alert, awake and oriented x3 Motor: muscle tone normal throughout Extrem Right upper extremity: shoulder/upper arm Details: normal to inspection and normal ROM; no tenderness and no swelling, elbow/forearm (pain reproducible with clenching fist with elbow flexed. ) Details: normal to inspection and normal ROM; no tenderness, no swelling, no unusual warmth, no abrasions, no lacerations, no ecchymosis, no crepitus and no deformity, wrist Details: normal to inspection and normal ROM and hand Details: normal to inspection, neurosensory exam normal and vascular exam Details: radial pulse present and normal capillary refill Psych Appearance: grossly normal Affect: normal affect Course Vital Signs Temperature 98.2 F 05/17/18 15:50 Pulse 79 05/17/18 15:50 Respiratory Rate 16 05/17/18 15:50 Blood Pressure 126/80 05/17/18 15:50 Pulse Oximetry 99 05/17/18 15:50 Temperature 98.2 F 05/17/18 15:50 Temperature Source Oral 05/17/18 15:50 Pulse 79 05/17/18 15:50 Respiratory Rate 16 05/17/18 15:50 Respiratory Effort Non-Labored 05/17/18 15:53 Blood Pressure 126/80 05/17/18 15:50 Blood Pressure Position Sitting 05/17/18 15:50 Pulse Oximetry 99 05/17/18 15:50 Oxygen Delivery Method Room Air 05/17/18 15:50 Oxygen Flow Rate 0 05/17/18 15:50 Pain Level 10 05/17/18 15:50
--- NOTE | 2018-05-17 16:50 | DI.RAD_ITS ---
SYMPTOM/DIAGNOSIS: RT ELBOW PAIN, R/O ACUTE FRACTURE VS ARTHRITIS RIGHT ELBOW: 05/17/18 Three views were obtained. There is no evidence of an elbow joint effusion or hemarthrosis. No fracture is identified.
--- NOTE | 2018-05-17 17:05 | DI.VRAD_ITS ---
EXAM: XR Right Elbow Complete, 3 or more Views EXAM DATE/TIME: 05/17/2018 4:35 PM CLINICAL HISTORY: 57 years old, male; Pain; Elbow; Right TECHNIQUE: XR Right elbow, 3 or more views. COMPARISON: No relevant prior studies available. FINDINGS: Bones/joints: Normal. There is no evidence of acute fracture.There is no evidence of malalignment or dislocation. Soft tissues: Normal. IMPRESSION: No acute findings. Dictated and Authenticated by: Madalyn Lyn MD. Ordering:JOSE Leiva MD
== END 2018-05-17 17:24 | disposition home or self-care (01) ==
PROVIDERS: Emergency Provider Physician Assistant; PCP General Practice
DX: M77.8 Other enthesopathies, not elsewhere classified (principal); M25.521 Pain in right elbow; G89.29 Other chronic pain; J44.9 Chronic obstructive pulmonary disease, unspecified; F17.210 Nicotine dependence, cigarettes, uncomplicated
CPT/HCPCS: 99283; 73080

== ENCOUNTER → 2018-06-05 09:40 | Outpatient (BNVA) | payer MEDICARE, MEDICAID, SELFPAY | PROVIDERS: PCP General Practice; Referring Provider General Practice; Visit Provider Orthopaedic Surgery | DX: M77.11 Lateral epicondylitis, right elbow (principal); J44.9 Chronic obstructive pulmonary disease, unspecified; F17.210 Nicotine dependence, cigarettes, uncomplicated | CPT/HCPCS: 99201; 99214 ==

== ENCOUNTER → 2018-07-17 09:12 | Outpatient (BNVA) | payer MEDICARE, MEDICAID, SELFPAY | PROVIDERS: PCP General Practice; Referring Provider General Practice; Visit Provider Orthopaedic Surgery | DX: M77.11 Lateral epicondylitis, right elbow (principal) | CPT/HCPCS: 99213 ==

== ENCOUNTER 2018-12-06 17:47 | Emergency (ER) | payer MEDICARE, MEDICAID, SELFPAY ==
[2018-12-06] VITALS (13 sets, daily range): BP systolic 116–135; BP diastolic 72–96; PULSE 71–93; RESP 8–23; TEMP 36.6; O2SAT 93–96
--- NOTE | 2018-12-06 18:07 | ED.GENADUL_ITS ---
Discharge Plan Disposition Patient Disposition: AGAINST MEDICAL ADVICE Condition: Fair Discharge Details Chief Complaint: Chest/Rib Clinical Impression: Acute chest wall pain Primary Care Provider: Sedrick Brand ED Provider: Carlota Simms Home Meds and New Rx's Prescriptions: Continued levalbuterol tartrate [Xopenex HFA] 1 PUFF HFA aerosol inhaler 2 puff Inhalation .Q 6 HRS PRN RF: 0 nortriptyline 25 MG capsule 50 mg PO HS RF: 0 acetaminophen 500 mg Tablet 1,000 mg PO PRN PRNRF: 0 ibuprofen 600 mg tablet 600 mg PO QID PRN (Reason: pain) Qty: 20 RF: 0 Discharge Instructions Instructions: Chest Wall Pain (ED) Additional Instructions: Your history is most consistent with muscular pain. However, I am unable to rule out serious cardiac illness without further interventions at this time. You have declined further testing or work-up. Please use Tylenol as needed for discomfort. You may use topical options such as Lidoderm or Salonpas patches for topical discomfort. You may return at any time for reevaluation and further workup. If you develop increased pain, shortness of breath, difficulty breathing or other new/worsening symptoms please seek care immediately once again. Please follow up with primary care as soon as possible, call Saturday to schedule appointment. Referrals: Sedrick Brand MD [Primary Care Provider] - Discharge Data Discharge Date/Time-TO BE ENTERED AT DEPARTURE: 12/06/18 19:35 Medical Decision Making <VIRGIE Dominguez - Last Filed: 12/07/18 17:46> Patient 58-year-old male with history of COPD, MAKENZIE, presenting today with chief complaint of left-sided rib pain. He reports that for the past 3 days he has been moving large boxes and has been noting pain in the left side of the chest wall. Reports that the pain primarily came on after moving 3 large boxes down a flight of stairs with a sina. Does not have pain when he is climbing the steps or with ambulation but states that the pain is worse with movement of the left upper extremity as well as heavy lifting. Patient's concern for possible rib fracture. He denies any trauma. Pain does not radiate. He does not feel short of breath. Has not noted any rash. On exam, patient appears nontoxic. He has good lung sounds in all [place]. Normal cardiovascular exam. He is point tender over the lateral aspect of the 8 and 9 ribs. No evidence of rash, trauma. No abnormality with palpation, no crepitus. EKG was reviewed by Dr. Conley, he is referred to his note. No ischemic changes noted. Patient discussed this. At this time, he is primary concern for possible rib fracture although with his history this is less likely. I did advise that as he is having pain on the left side of the chest, I would be appropriate to evaluate for cardiac source versus underlying pulmonary source. However, patient does not feel that this is risk at this time. He feels this is muscular in nature. Is questioning if there is a way to evaluate what muscle is causing the source and advised that this do not be evaluated on a chest x-ray which is what patient initially was requesting. I discussed with him that it would be appropriate to do laboratory evaluation, continued monitoring and chest x-ray to evaluate for cardiopulmonary source and he declines feeling this is muscular skeletal. We discussed options to help with pain. He will be fitted with a lidocaine patch. We discussed activities he should avoid. He does live locally and is able to return with any new or worsening symptoms. He was given strict return precautions. Patient will be discharged AGAINST MEDICAL ADVICE. He is cognitively appropriate and able to make his own decisions. All his questions and concerns were addressed.. He will contact primary care on Saturday to schedule prompt follow-up. <Jadon Conley MD - Last Filed: 12/06/18 18:07> ECG Data Attestation: I personally reviewed and interpreted this ECG (s) as follows: Prior ECG tracings: not available for review Interpretation: sinus rhythm, rate of 85, pr [address] t wave ischemic findings HPI <VIRGIE Dominguez - Last Filed: 12/07/18 17:46> General Mode of arrival: ambulatory . Date/Time Provider Initiated Documentation: 12/06/18 17:53 . Limitations to Documentation: no limitations . Information obtained by: patient and RN notes reviewed . History of Present Illness 58 year old M presents to the emergency department with the chief complaint of left sided chest wall pain, described as moderate, with intensity rated at 6. Quality is described as aching, and is localized to the chest. Patient reports no radiation. Patient started experiencing this day(s) (3) and it has been intermittent (only with movement, particularly of arms, no pain at rest). Immobilization improves symptom(s), Movement worsens symptoms . Patient notes no other symptoms. and chest pain; denies cough, diaphoresis, fever/chills, headaches, loss of appetite, nausea/vomiting, rash, shortness of breath and weakness. Patient did receive the following treatments prior to arrival, none Related Data Home Medications Medication Instructions Recorded Confirmed levalbuterol tartrate [Xopenex HFA] 2 puff INHALATION .Q 6 HRS PRN 10/28/12 12/06/18 nortriptyline 50 mg PO HS 07/16/14 12/06/18 acetaminophen 1,000 mg PO PRN PRN 03/07/18 12/06/18 ibuprofen 600 mg PO QID PRN #20 tab 05/17/18 12/06/18 Previous Rx's Medication Instructions Recorded ibuprofen 600 mg PO QID PRN #20 tab 05/17/18 Allergies Allergy/AdvReac Type Severity Reaction Status Date / Time aspirin Allergy Intermediate Skin Rash Unverified 12/06/18 18:03 crab Allergy Anaphylaxsi Unverified 12/06/18 18:03 s hydrocodone [Hydrocodone] AdvReac Severe dizzy and Unverified 12/06/18 18:03 nausea lobster Allergy Anaphylaxsi Uncoded 12/06/18 18:03 s General Stated Complaint: Chest/Rib BRAEDEN: 3 Review of Systems <VIRGIE Dominguez - Last Filed: 12/07/18 17:46> Constitutional Reports as per HPI, Denies chills, Denies fever(s), Denies headache(s), Denies lethargy and Denies poor appetite Eyes Denies change in vision ENT Denies dizziness and Denies headache(s) Cardiovascular Reports as per HPI, Reports chest pain, Denies chest pain at rest, Denies chest pain with activity (no pain with ambulation or stairs, only with movement of LUE or heavy lift), Denies pedal edema, Denies leg edema, Denies lightheadedness, Denies radiating jaw, neck or arm pain, Denies palpitations, Denies dyspnea and Denies dyspnea on exertion Respiratory Reports as per HPI, Denies chest congestion, Denies cough, Denies pain on inspiration, Denies pain with cough, Denies dyspnea, Denies dyspnea on exertion and Denies wheezing Gastrointestinal Reports as per HPI, Denies abdominal pain, Denies diarrhea, Denies nausea and Denies vomiting Genitourinary Denies system reviewed and no additional complaints, except as docu (denies change in urinary habits) Musculoskeletal Reports as per HPI and Denies back pain Integumentary/Breasts Reports as per HPI and Denies rash Neurologic Reports as per HPI, Denies dizziness and Denies headache(s) Endocrine Denies palpitations Allergic/Immunologic Denies wheezing PFSH <VIRGIE Dominguez - Last Filed: 12/07/18 17:46> Medical History COPD (chronic obstructive pulmonary disease) (Chronic) Obstructive sleep apnea (Chronic) Surgical History History of appendectomy (Chronic) Social History Smoking/Tobacco Use Status: Current every day Tobacco Type: cigarettes Alcohol Intake: current Alcohol Intake frequency: a few times a month Drug use: Never Substance use type: does not use Do you feel safe in your relationship?: Yes Exam <VIRGIE Dominguez - Last Filed: 12/07/18 17:46> Const General: cooperative, healthy appearing, comfortable, no acute distress and well developed Nutritional Appearance: average body habitus and well nourished Orientation: alert, awake and oriented x3 HENMT Head: normal to inspection Ears: hearing grossly normal bilaterally Mouth: moist mucous membranes Chest Chest: normal inspection of the chest, normal palpation of entire chest wall, no crepitus and localized rib tenderness with anteroposterior compression (left lateral 8&9 ribs) Resp Effort & Inspection: normal respiratory effort, able to speak in complete sentences and no respiratory distress Auscultation: clear to auscultation bilaterally, no rales, no rhonchi and no wheezes Cardio Rate: regular rate Rhythm: regular rhythm Heart Sounds: S1 normal and S2 normal GI Inspection: normal to inspection, no edema and non-distended Palpation: soft, no hepatosplenomegaly, not firm, no guarding, not rigid and nontender Auscultation: normal bowel sounds Back/Spine/Pelvis Cervical Spine: normal cervical lordosis and cervical ROM normal Thoracic/Lumbar Spine: thoracic and lumbar spine normal to inspection Skin General skin exam: no rashes or lesions noted Trauma: no lacerations or abrasions Neuro General: alert, awake and oriented x3 Cognition: normal cognition Speech: speech normal Gait: normal gait Extrem General: normal to inspection, normal capillary refill, no pedal edema, no calf tenderness and normal gait Psych Appearance: grossly normal and well kempt Mental Status: mental status grossly normal Speech and Movement: speech and movement normal Course <VIRGIE Dominguez - Last Filed: 12/07/18 17:46> Vital Signs Temperature 36.6 C 12/06/18 18:00 Pulse 93 H 12/06/18 18:00 Respiratory Rate 18 12/06/18 18:00 Blood Pressure 128/96 H 12/06/18 18:00 Pulse Oximetry 94 L 12/06/18 18:00 Temperature 36.6 C 12/06/18 18:00 Temperature Source Temporal Artery Scan 12/06/18 18:00 Pulse 93 H 12/06/18 18:00 Respiratory Rate 18 12/06/18 18:00 Blood Pressure 128/96 H 12/06/18 18:00 Blood Pressure Position Sitting 12/06/18 18:00 Pulse Oximetry 94 L 12/06/18 18:00 Oxygen Delivery Method Room Air 12/06/18 18:00 Oxygen Flow Rate 0 12/06/18 18:00 Pain Level 6 12/06/18 18:00
[2018-12-06] MEDS: Acetaminophen 325 MG TAB 650 MG PO (19:22)
[2018-12-06] MEDS: Lidocaine 5% Patch 1 PATCH TP (19:23)
== END 2018-12-06 19:35 | disposition left against medical advice (07) ==
PROVIDERS: Emergency Provider Physician Assistant; PCP General Practice
DX: R07.89 Other chest pain (principal); J44.9 Chronic obstructive pulmonary disease, unspecified; F17.210 Nicotine dependence, cigarettes, uncomplicated; Z53.29 Procedure and treatment not carried out because of patient's decision for other reasons
CPT/HCPCS: 93005; 99283; 93010

== ENCOUNTER 2019-02-08 09:25 | Emergency (ER) | payer MEDICARE, MEDICAID, SELFPAY ==
[2019-02-08] VITALS (18 sets, daily range): BP systolic 121–140; BP diastolic 70–87; PULSE 62–81; RESP 9–19; TEMP 36.5; O2SAT 97–100
--- NOTE | 2019-02-08 09:45 | DI.RAD_ITS ---
SYMPTOM/DIAGNOSIS: DIZZINESS PA AND LATERAL CHEST: Pulmonary hyperexpansion would be consistent with COPD. A stable calcified granuloma is identified in the right lung base. There is no evidence of a pleural effusion or pneumothorax. The heart is not enlarged. No acute bony abnormality is seen. SUMMARY: Findings consistent with COPD. No acute superimposed process is identified.
--- NOTE | 2019-02-08 09:55 | ED.GENADUL_ITS ---
Discharge Plan Disposition Patient Disposition: HOME Condition: Improving Discharge Details Chief Complaint: Dizzy/Sync Clinical Impression: Vertigo Primary Care Provider: Sedrick Brand ED Provider: Abbie Haines Home Meds and New Rx's Prescriptions: New meclizine 12.5 mg tablet 12.5 mg PO TID PRN (Reason: dizziness) Qty: 10 RF: 0 Continued levalbuterol tartrate [Xopenex HFA] 1 PUFF HFA aerosol inhaler 2 puff Inhalation .Q 6 HRS PRN RF: 0 nortriptyline 25 MG capsule 50 mg PO HS RF: 0 acetaminophen 500 mg Tablet 1,000 mg PO PRN PRNRF: 0 ibuprofen 600 mg tablet 600 mg PO QID PRN (Reason: pain) Qty: 20 RF: 0 Discharge Instructions Instructions: Vertigo (ED) Additional Instructions: Drink plenty of fluids and get plenty of rest. Take the meclizine as needed and directed for dizziness. Follow-up with the primary care doctor this week for reevaluation. Return to the emergency department if you develop any worsening or new concerning symptoms. Discharge Data Discharge Physician: Abbie Haines Medical Decision Making 58-year-old male with a history of COPD, obstructive sleep apnea, daily smoker who presents with dizziness since this morning. Described as spinning sensation worse with movement. EKG notes a rate of 68, sinus with T wave inversion in V2 which appears new compared to previous but no acute ST ischemic changes, nondiagnostic. Normal ENT exam. Lungs clear. Abdomen nontender. No focal deficits. Differential diagnosis includes vertigo, dehydration, electrolyte abnormality. Presentation does not appear consistent with ACS. No focal deficits on exam and denies a client of nausea or vomiting so does not appear consistent with a central process. Will place IV, bolus IV fluids, meclizine, screening labs and chest x-ray. 1130 -- labs and imaging reviewed and unremarkable. Patient states he feels much better. He was able to ambulate and denies any dizziness. Will send home with a prescription for meclizine. He is advised to drink plenty of fluids, get plenty of rest, follow-up with his primary care doctor and to return here anytime if worse. Medical Records Medical records reviewed: Yes I reviewed the patient's medical records. Imaging Data Radiologic Study: Radiologist's impression: XR Chest, 2 Views EXAM DATE/TIME: 02/08/2019 9:48 AM CLINICAL HISTORY: 58 years old, male; Other: Dizziness TECHNIQUE: Imaging protocol: XR of the chest Views: 2 views. COMPARISON: CR XR CHEST 2V PA LATERAL 03/07/2018 9:23 AM FINDINGS: Lungs: Hyperexpanded lung kingsley consistent with COPD Stable calcified granuloma in the right base Pleural space: Unremarkable. No pleural effusion. No pneumothorax. Heart/Mediastinum: Unremarkable. No cardiomegaly. Bones/joints: Unremarkable. IMPRESSION: Hyperexpanded lung kingsley consistent with COPD Lab Data Lab results reviewed: Yes I reviewed the patient's lab results. Labs: Laboratory Tests Range/Units 02/08/19 02/08/19 09:50 09:50 WBC (4.4-10.8) k/cumm 4.86 RBC (4.50-6.00) m/cumm 3.88 L Hgb (13.5-17.5) g/dL 13.2 L Hct (40.0-50.0) % 37.2 L MCV (80-95) fL 95.9 H MCH (27.0-33.0) pg 34.0 H MCHC (32.0-36.0) g/dL 35.5 RDW (11.8-14.1) % 13.5 Plt Count (130-400) x1000/uL 227 MPV (8.0-11.0) fL 9.0 Immature Gran % 0.2 Neutrophils % 65.1 Lymphocytes % 25.1 Monocytes % 8.2 Eosinophils % 1.2 Basophils % 0.2 Absolute Neutrophils (1.2-6.7) k/cumm 3.16 Absolute Lymphocytes (1.2-3.4) k/cumm 1.22 Absolute Monocytes (0.11-0.7) k/cumm 0.40 Absolute Eosinophils (0.0-0.7) k/cumm 0.06 Absolute Basophils (0.0-0.2) k/cumm 0.01 Sodium (136-145) mmol/L 141 Potassium (3.5-5.1) mmol/L 4.3 Chloride (98-107) mmol/L 106 Carbon Dioxide (21.0-32.0) mmol/L 29.6 Anion Gap (3-11) mmol/L 5.4 BUN (7-18) mg/dL 14 Creatinine (0.70-1.30) mg/dL 0.92 Estimated GFR/1.73 m2 (mL/min/1.73m2) >= 60.00 Glucose (70-100) mg/dL 97 Calcium (8.5-10.1) mg/dL 8.6 Magnesium (1.8-2.4) mg/dL 1.8 Total Bilirubin (0.2-1.0) mg/dL 0.6 AST (15-37) U/L 14 L ALT (16-63) U/L 18 Alkaline Phosphatase (46-116) U/L 81 Troponin I (0.00-0.06) ng/mL < 0.05 Total Protein (6.4-8.2) g/dL 7.3 Albumin (3.4-5.0) g/dL 3.9 ECG Data Attestation: I personally reviewed and interpreted this ECG (s) as follows: Interpretation: Rate of 68, sinus, T wave inversion in V2. No acute ST elevation or depression. IN 158. QTc 404. QRS 102. HPI General Mode of arrival: ambulatory . Date/Time Provider Initiated Documentation: 02/08/19 09:28 . Limitations to Documentation: no limitations . Information obtained by: patient . HPI Narrative: Patient is a 58-year-old male with a history of COPD, obstructive sleep apnea, daily tobacco smoker who presents with dizziness since this morning. Patient states he awoke and stood up out of bed and admits to lightheaded and spinning sensation. Patient states his symptoms worsened when he was bending forward to put on his shoes. He states he had blurry vision at the same time but this is now resolved. He denies headache, neck pain, chest pain, shortness of breath, abdominal pain, nausea, vomiting, diarrhea, urinary symptoms or extremity weakness or numbness. He denies any recent illness and states he felt fine last evening. He denies any recent hospital admission, recent surgery, recent travel, medication changes, recent antibiotics, leg pain or swelling. Related Data Home Medications Medication Instructions Recorded Confirmed levalbuterol tartrate [Xopenex HFA] 2 puff INHALATION .Q 6 HRS PRN 10/28/12 02/08/19 nortriptyline 50 mg PO HS 07/16/14 02/08/19 acetaminophen 1,000 mg PO PRN PRN 03/07/18 02/08/19 ibuprofen 600 mg PO QID PRN #20 tab 05/17/18 02/08/19 meclizine 12.5 mg PO TID PRN #10 tab 02/08/19 Previous Rx's Medication Instructions Recorded ibuprofen 600 mg PO QID PRN #20 tab 05/17/18 meclizine 12.5 mg PO TID PRN #10 tab 02/08/19 Allergies Allergy/AdvReac Type Severity Reaction Status Date / Time aspirin Allergy Intermediate Skin Rash Unverified 02/08/19 09:41 crab Allergy Anaphylaxsi Unverified 02/08/19 09:41 s hydrocodone [Hydrocodone] AdvReac Severe dizzy and Unverified 02/08/19 09:41 nausea lobster Allergy Anaphylaxsi Uncoded 02/08/19 09:41 s General Stated Complaint: Dizzy/Sync BRAEDEN: 3 Review of Systems Review of Systems ROS Unobtainable: All systems reviewed & are unremarkable except as noted in HPI and below Constitutional Constitutional: Reports as per HPI, Denies chills and Denies fever(s) Eyes Eyes: Denies blurry vision ENT Ears, Nose, Mouth, and Throat: Reports dizziness, Denies sore throat and Denies throat swelling Cardiovascular Cardiovascular: Denies chest pain and Denies dyspnea Respiratory Respiratory: Denies cough and Denies dyspnea Gastrointestinal Gastrointestinal: Denies abdominal pain, Denies diarrhea and Denies vomiting Genitourinary Genitourinary: Denies hematuria and Denies dysuria Musculoskeletal Musculoskeletal: Denies back pain and Denies numbness Integumentary/Breasts Skin/Breast: Denies lesions and Denies rash Neurologic Neurologic: Reports dizziness, Denies focal weakness and Denies numbness Allergic/Immunologic Allergic/Immunologic: Denies throat swelling [facility] Medical History COPD (chronic obstructive pulmonary disease) (Chronic) Obstructive sleep apnea (Chronic) Surgical History History of appendectomy (Chronic) Social History Smoking/Tobacco Use Status: Current every day Tobacco Type: cigarettes Alcohol Intake: current Alcohol Intake frequency: a few times a month Drug use: Never Substance use type: does not use Do you feel safe at home: Yes Do you feel safe in your relationship?: Yes Exam Const General: cooperative, healthy appearing and no acute distress [facility] Head: normal to inspection Ears: hearing grossly normal bilaterally, external ears normal and TM's normal bilaterally General nose exam: external nose normal Face and sinus: normal facial exam Mouth: oral mucosae normal Throat: posterior oropharynx normal Eyes General: appearance normal, both eyes and all related structures Pupils: PERRL EOM: EOM intact bilaterally Neck Neck: normal visual inspection and No submandibular swelling Lymphatic: no lymphadenopathy noted Chest Chest: normal inspection of the chest and no tenderness Resp Effort & Inspection: normal respiratory effort and able to speak in complete sentences Auscultation: clear to auscultation bilaterally Cardio Rate: regular rate Rhythm: regular rhythm GI Inspection: normal to inspection Palpation: soft, not firm, not rigid and nontender Auscultation: normal bowel sounds Skin General skin exam: no rashes or lesions noted Neuro General: alert, awake and oriented x3 Cranial Nerves: CN's II-XI intact bilaterally Cognition: normal cognition Speech: speech normal Motor: muscle tone normal throughout and strength 5/5 throughout Sensory Exam: no sensory deficits noted Extrem General: normal to inspection, full ROM, normal capillary refill, no calf tenderness bilaterally and no edema Psych Appearance: grossly normal Mental Status: mental status grossly normal Speech and Movement: speech and movement normal Affect: normal affect Course Vital Signs Vital signs: Vital Signs Temperature 97.7 F 02/08/19 09:30 Pulse 77 02/08/19 09:30 Blood Pressure 140/83 02/08/19 09:30 Pulse Oximetry 97 02/08/19 09:30 Temperature 97.7 F 02/08/19 09:30 Temperature Source Temporal Artery Scan 02/08/19 09:30 Pulse 77 02/08/19 09:30 Respiratory Rate 14 02/08/19 09:34 Respiratory Effort Non-Labored 02/08/19 09:34 Respiratory Depth Normal 02/08/19 09:34 Respiratory Pattern Normal 02/08/19 09:34 Blood Pressure 140/83 02/08/19 09:30 Blood Pressure Position Supine 02/08/19 09:30 Pulse Oximetry 97 02/08/19 09:30 Oxygen Delivery Method Room Air 02/08/19 09:30 Oxygen Flow Rate 0 02/08/19 09:30 Pain Level 0 02/08/19 09:30
[2019-02-08] MEDS: Meclizine 25 MG TAB PO (09:58)
[2019-02-08] MEDS: Normal Saline 1,000 ML 1000 ML IV (10:00)
[2019-02-08 10:01] LABS: Abs Immature Grans 0.01 k/cumm (0.0-0.09); Absolute Basophil Count 0.01 k/cumm (0.0-0.2); Absolute Eosinophil Count 0.06 k/cumm (0.0-0.7); Absolute Lymphocyte Count 1.22 k/cumm (1.2-3.4); Absolute Neutrophil Count 3.16 k/cumm (1.2-6.7); Basophils % 0.2; Eosinophils % 1.2; HCT 37.2 % (40.0-50.0); HGB 13.2 g/dL (13.5-17.5); Immature Grans % 0.2; Lymphocytes % 25.1; Mean Corp. HGB Concentration 35.5 g/dL (32.0-36.0); Mean Corpuscular Volume 95.9 fL (80-95); Monocytes % 8.2; Neutrophils % 65.1; Platelet Count 227 x1000/uL (130-400); RBC 3.88 m/cumm (4.50-6.00); RBC Distribution Width 13.5 % (11.8-14.1); White Blood Cell Count 4.86 k/cumm (4.4-10.8)
[2019-02-08] MEDS: Normal Saline Flush 10 ML SYR IVP (10:02)
--- NOTE | 2019-02-08 10:14 | DI.VRAD_ITS ---
EXAM: XR Chest, 2 Views EXAM DATE/TIME: 02/08/2019 9:48 AM CLINICAL HISTORY: 58 years old, male; Other: Dizziness TECHNIQUE: Imaging protocol: XR of the chest Views: 2 views. COMPARISON: CR XR CHEST 2V PA LATERAL 03/07/2018 9:23 AM FINDINGS: Lungs: Hyperexpanded lung kingsley consistent with COPD Stable calcified granuloma in the right base Pleural space: Unremarkable. No pleural effusion. No pneumothorax. Heart/Mediastinum: Unremarkable. No cardiomegaly. Bones/joints: Unremarkable. IMPRESSION: Hyperexpanded lung kingsley consistent with COPD Dictated and Authenticated by: Madalyn Lyn MD. Ordering:JOSE Leiva MD
[2019-02-08 10:16] LABS: ALT 18 U/L (16-63); AST 14 U/L (15-37); Albumin 3.9 g/dL (3.4-5.0); Alkaline Phosphatase 81 U/L (46-116); Anion Gap 5.4 mmol/L (3-11); BUN 14 mg/dL (7-18); Bilirubin, Total 0.6 mg/dL (0.2-1.0); CO2 29.6 mmol/L (21.0-32.0); CREATININE 0.92 mg/dL (0.70-1.30); Calcium 8.6 mg/dL (8.5-10.1); Chloride 106 mmol/L (98-107); Glucose 97 mg/dL (70-100); Magnesium 1.8 mg/dL (1.8-2.4); Potassium 4.3 mmol/L (3.5-5.1); Sodium 141 mmol/L (136-145); Total Protein 7.3 g/dL (6.4-8.2)
[2019-02-08 10:23] LABS: Troponin I < 0.05 ng/mL (0.00-0.06)
== END 2019-02-08 12:03 | disposition home or self-care (01) ==
PROVIDERS: Emergency Provider Physician Assistant; PCP General Practice
DX: R42 Dizziness and giddiness (principal)
CPT/HCPCS: 36415; 80053; 93005; 96360; 99285; 71046; 83735; 84484; 85025; 93010

== ENCOUNTER 2019-03-08 17:27 | Emergency (ER) | payer MEDICARE, MEDICAID, SELFPAY ==
[2019-03-08 17:35] VITALS: BP 140/91; PULSE 92; RESP 18; TEMP 36.2; O2SAT 98
--- NOTE | 2019-03-08 17:40 | DI.RAD_ITS ---
EXAM: XR CHEST 2V PA LATERAL INDICATION: cough, r/opneumonia. COMPARISON: ABD FLAT UPRIGHT PA CHEST from 07/09/2012 XR CHEST 2V PA LATERAL from 02/08/2019 TECHNIQUE: 2D digital imaging was performed. FINDINGS: The heart is not enlarged. There are changes of pulmonary scarring. Probable nipple shadow on the r ight, repeat PA chest with nipple markers requested to exclude intrapulmonary nodule. No pleural eff usion seen. IMPRESSION: Repeat PA chest with nipple markers requested to exclude right intrapulmonary nodule. Finding was no t present on prior chest film of June 2012.
[2019-03-08 17:44] VITALS: RESP 8
[2019-03-08] MEDS: Albuterol/Ipratropium 3 ML UPD VIAL UPD (17:44)
--- NOTE | 2019-03-08 18:37 | DI.VRAD_ITS ---
PROCEDURE INFORMATION: Exam: XR Chest, 2 Views Exam date and time: 03/08/2019 6:03 PM Clinical history: 58 years old, male; Cough with hemorrhage TECHNIQUE: Imaging protocol: XR of the chest Views: 2 views. COMPARISON: CR XR CHEST 2V PA LATERAL 02/08/2019 10:03 AM FINDINGS: Lungs: 11 mm opacity right midlung. Pleural space: No large pleural effusion. No large pneumothorax. Heart/Mediastinum: Cardiomediastinal silhouette is unchanged. Bones/joints: No displaced fracture. IMPRESSION: 11 mm opacity right midlung may be due to a nipple shadow. This can be further evaluated with nipple markers in place. Dictated and Authenticated by: Violet Boyle MD. Ordering:ROMEL Varner MD
--- NOTE | 2019-03-08 18:47 | W.ED.GENAD ---
Discharge Plan Disposition Patient Disposition: HOME Condition: Good Discharge Details Chief Complaint: RespSymp Clinical Impression: Bronchitis, Incidental lung nodule Primary Care Provider: Sedrick Brand ED Provider: Telly Rudolph Home Meds and New Rx's Prescriptions: New prednisone 50 MG tablet 50 mg PO DAILY Qty: 5 RF: 0 loratadine 10 mg capsule 10 mg PO DAILY Qty: 14 RF: 0 No Action levalbuterol tartrate [Xopenex HFA] 1 PUFF HFA aerosol inhaler 2 puff Inhalation .Q 6 HRS PRN RF: 0 nortriptyline 25 MG capsule 50 mg PO HS RF: 0 acetaminophen 500 mg Tablet 1,000 mg PO PRN PRNRF: 0 meclizine 12.5 mg tablet 12.5 mg PO TID PRN (Reason: dizziness) Qty: 10 RF: 0 ibuprofen 600 mg tablet 600 mg PO QID PRN (Reason: pain) Qty: 20 RF: 0 Discharge Instructions Instructions: Acute Bronchitis (ED) Additional Instructions: At this time your x-ray shows no evidence of pneumonia. There is evidence of an 11 mm opacity in the right midlung, this is likely just your nipple from the x-ray, however there is concern that this could be a potential small lesion. Do recommend follow-up with your primary care provider in regard to this and repeat x-ray in the next 1 to 3 months. With no evidence of pneumonia there is no need for antibiotics at this point. Recommend your inhaler to be used 2 puffs every 4 hours for the next 2 to 3 days in conjunction with the steroids as prescribed. Should help improve your cough and resolve the symptoms of this viral infection. Please also take the loratadine to help with congestion which should in turn help your cough as well. If you notice any worsening of your symptoms, or any new symptoms such as vomiting, diarrhea, fever, chills, shortness of breath, chest pain, numbness, weakness, or fainting , please return immediately to the emergency department for reevaluation. Please follow up with your primary care provider as soon as possible for reassessment and reevaluation. As always, it was a pleasure participating in your medical care today. Referrals: Sedrick Brand MD [Primary Care Provider] - Discharge Data Discharge Date/Time-TO BE ENTERED AT DEPARTURE: 03/08/19 19:00 Medical Decision Making This is a 58-year-old male with past medical history of reactive airway disease, who presents today for evaluation of cough for the last 2 to 3 days, nonproductive, no associated fevers. No chest pain or chest tearing sensation. No history of cardiac disease. Physical exam demonstrates minimal wheezes, no crackles or rhonchi. No hypoxemia. Patient was given a breathing treatment here, and he had notable improvement of his symptoms. Chest x-ray is negative for any evidence of pneumonia. Signs and symptoms are clinically inconsistent with PE, ACS. There is an 11 mm opacity in the right midlung, which may be a nipple shadow. Reassessing the patient it does appear that his nipple is in line with the location of the x-ray finding. However out of an abundance of precaution we will recommend close follow-up and repeat x-ray imaging in the next 2 to 3 months for reassessment. Signs and symptoms at this time are clinically consistent with mild reactive airway disease. Potential mild bronchitis. No clinical indication for antibiotics at this time. With his notable improvement clinically and subjectively with a breathing treatment will recommend his continue Xopenex use every 6 hours for the next few days, in conjunction with 5-day steroid burst. Discussed red flags which return the importance of PCP follow-up. I have extensively reviewed the treatment plan and discharge instructions with the patient. I have addressed all patient concerns at this time. The patient was made aware of what symptoms to monitor for that would warrant a return to the emergency department. Discussed the plan with the patient, they demonstrate verbal understanding and agreement with our assessment and plan at this time. FINDINGS: Lungs: 11 mm opacity right midlung. Pleural space: No large pleural effusion. No large pneumothorax. Heart/Mediastinum: Cardiomediastinal silhouette is unchanged. Bones/joints: No displaced fracture. IMPRESSION: 11 mm opacity right midlung may be due to a nipple shadow. This can be further evaluated with nipple markers in place. Thank you for allowing us to participate in the care of your patient. Dictated and Authenticated by: Violet Boyle MD HPI General Date/Time Provider Initiated Documentation: 03/08/19 17:34. HPI Narrative: This is a pleasant 58-year-old male who presents today for evaluation of cough. He is had a cough for the last 2 days, does have an inhaler of Xopenex at home, is mildly improves his symptomatology. Cough is nonproductive. He denies any fever or chills. He does smoke. He denies any chest pain, chest tightness, severe shortness of breath. Denies PE risk factors such as recent long car rides, immobilization, recent surgery, prior history of DVT or PE, family history of PE or DVT, morbid obesity, exogenous estrogen and smoking, hemoptysis, history of cancer. He denies any hemoptysis, history of UT, arm neck or shoulder pain, he denies any SELVIN inhibitor use. He has no other complaints at this time. No other modifying factors. Related Data Home Medications Medication Instructions Recorded Confirmed levalbuterol tartrate [Xopenex HFA] 2 puff INHALATION .Q 6 HRS PRN 10/28/12 03/08/19 nortriptyline 50 mg PO HS 07/16/14 03/08/19 acetaminophen 1,000 mg PO PRN PRN 03/07/18 03/08/19 ibuprofen 600 mg PO QID PRN #20 tab 05/17/18 03/08/19 meclizine 12.5 mg PO TID PRN #10 tab 02/08/19 03/08/19 loratadine 10 mg PO DAILY #14 cap 03/08/19 prednisone 50 mg PO DAILY #5 tab 03/08/19 Previous Rx's Medication Instructions Recorded ibuprofen 600 mg PO QID PRN #20 tab 05/17/18 meclizine 12.5 mg PO TID PRN #10 tab 02/08/19 loratadine 10 mg PO DAILY #14 cap 03/08/19 prednisone 50 mg PO DAILY #5 tab 03/08/19 Allergies Allergy/AdvReac Type Severity Reaction Status Date / Time aspirin Allergy Intermediate Skin Rash Unverified 03/08/19 17:52 crab Allergy Anaphylaxsi Unverified 03/08/19 17:52 s hydrocodone [Hydrocodone] AdvReac Severe dizzy and Unverified 03/08/19 17:52 nausea lobster Allergy Anaphylaxsi Uncoded 03/08/19 17:52 s General Stated Complaint: RespSymp BRAEDEN: 3 Review of Systems Review of Systems ROS Unobtainable: All systems reviewed & are unremarkable except as noted in HPI and below PFSH Social History Smoking/Tobacco Use Status: Current every day Tobacco Type: cigarettes Alcohol Intake: current Alcohol Intake frequency: a few times a month Drug use: Never Substance use type: does not use Do you feel safe at home: Yes Do you feel safe in your relationship?: Yes Exam Narrative Exam Narrative: 1.Const: Well-nourished, Well-developed, appearing stated age 2.Eyes: PERRL, no conjunctival injection, and symmetrical lids. 3.ENT: Atraumatic external nose and ears. Moist MM. Neck: Symmetric, trachea midline, No thyromegaly. 4.CVS: +S1/S2, No murmurs or gallops. Peripheral pulses 2+ and equal in all extremities. Brisk capillary refill in all extremities. 5.RESP: Unlabored respiratory effort. Mild wheezes throughout, no evidence of intercostal retractions, no rhonchi or rales. No evidence of acute respiratory distress. 6.GI: Soft, Nontender/Nondistended, No hepatosplenomegaly. No guarding or rebound. 7.MSK: Normocephalic/Atraumatic, Extremities w/o deformity or ttp No cyanosis or clubbing, Normal movement of all extremities 8.Skin: Warm, Dry. No rashes or lesions. 9.Neuro: cut off saw operator II-XII grossly intact. Sensation grossly intact, no focal neurologic deficits. 10.Psych: (AAO) x3. Appropriate mood and affect Course Vital Signs Vital signs: Vital Signs Temperature 36.2 C L 03/08/19 17:35 Pulse 92 H 03/08/19 17:35 Respiratory Rate 18 03/08/19 17:35 Blood Pressure 140/91 H 03/08/19 17:35 Pulse Oximetry 98 03/08/19 17:35 Temperature 36.2 C L 03/08/19 17:35 Temperature Source Skin 03/08/19 17:35 Pulse 92 H 03/08/19 17:35 Respiratory Rate 18 03/08/19 17:35 Respiratory Effort 03/08/19 17:50 Respiratory Depth Normal 03/08/19 17:50 Blood Pressure 140/91 H 03/08/19 17:35 Pulse Oximetry 98 03/08/19 17:35 Oxygen Delivery Method Room Air 03/08/19 17:44 Oxygen Flow Rate 0 03/08/19 17:44
== END 2019-03-08 19:00 | disposition home or self-care (01) ==
PROVIDERS: Emergency Provider Student in an Organized Health Care Education/Training Program; PCP General Practice
DX: J20.9 Acute bronchitis, unspecified (principal); R91.1 Solitary pulmonary nodule; J45.909 Unspecified asthma, uncomplicated
CPT/HCPCS: 94640; 99283; 71046; J7620

== ENCOUNTER 2019-04-13 22:23 | Outpatient (REF) | payer MEDICARE, MEDICAID, SELFPAY ==
[2019-04-13 21:33] LABS: Anion Gap 7.6 mmol/L (3-11); BUN 15 mg/dL (7-18); CO2 29.4 mmol/L (21.0-32.0); CREATININE 0.97 mg/dL (0.70-1.30); Calculated LDL 99 mg/dL; Chloride 103 mmol/L (98-107); Cholesterol 169 mg/dL (50-200); Glucose 86 mg/dL (70-100); HDL Cholesterol 41 mg/dL (40-60); Potassium 4.6 mmol/L (3.5-5.1); Sodium 140 mmol/L (136-145); Triglyceride 145 mg/dL (30-150)
[2019-04-15 11:36] LABS: Hepatitis C Ab w Rflx HCV PCR Negative (Negative)
== END 2019-04-13 22:43 ==
LOC: NCHCN 22:23
PROVIDERS: PCP General Practice; Visit Provider Specialist/Technologist Athletic Trainer
DX: Z13.6 Encounter for screening for cardiovascular disorders (principal); Z11.59 Encounter for screening for other viral diseases; Z13.228 Encounter for screening for other metabolic disorders
CPT/HCPCS: 80048; 80061; 86803

== ENCOUNTER 2019-07-18 12:17 | Emergency (ER) | payer MEDICARE, MEDICAID, SELFPAY ==
[2019-07-18 12:22] VITALS: BP 146/89; PULSE 87; RESP 16; TEMP 36.6; O2SAT 99
[2019-07-18 12:24] VITALS: RESP 14; O2SAT 95
--- NOTE | 2019-07-18 12:30 | DI.RAD_ITS ---
EXAM: XR SHOULDER LT COMPLETE 2+V CLINICAL HISTORY: Atraumatic pain TECHNIQUE: COMPARISON: No exams were available for comparison FINDINGS: Five views were obtained. There are mild hypertrophic degenerative changes of the acromioclavicular and glenohumeral joints. There is hypertrophic spurring and subchondral cyst formation at the greate r tuberosity of the humerus, presumably degenerative in nature. No other significant bony or soft ti ssue abnormality seen. IMPRESSION: No evidence of acute process
--- NOTE | 2019-07-18 12:30 | DI.RAD_ITS ---
EXAM: XR ELBOW LT LIMITED CLINICAL HISTORY: Atraumatic pain TECHNIQUE: COMPARISON: XR elbow RT complete from 05/17/2018 FINDINGS: Two views were obtained. No evidence of an elbow joint effusion or hemarthrosis. No bony abnormalit y seen. IMPRESSION:
--- NOTE | 2019-07-18 12:35 | ED.GENADUL_ITS ---
Discharge Plan Disposition Patient Disposition: HOME Condition: Improving Discharge Details Chief Complaint: Orthopedic Clinical Impression: Epicondylitis, lateral, left Primary Care Provider: Vasu Ellis ED Provider: Amandeep Bryan Home Meds and New Rx's Prescriptions: New prednisone 20 mg tablet 40 mg PO DAILY 5 Days Qty: 10 RF: 0 Continued levalbuterol tartrate [Xopenex HFA] 1 PUFF HFA aerosol inhaler 2 puff Inhalation .Q 6 HRS PRN RF: 0 nortriptyline 25 MG capsule 50 mg PO HS RF: 0 acetaminophen 500 mg Tablet 1,000 mg PO PRN PRNRF: 0 Discharge Instructions Instructions: Tennis Elbow (ED) Additional Instructions: Please follow-up with Dr. Hoffman in clinic if not improving in 1 week's time. Rest and apply ice to areas of discomfort today. May continue your routine Tylenol as well as ibuprofen if needed for pain. Sling if needed for comfort. Return to ER if develop a fever, redness, swelling of the joints, or any other acute concern. Please take prednisone as prescribed. Medical Decision Making 58-year-old male presents with atraumatic pain beginning this morning of the left shoulder and left elbow. He denies fall or injury, there is no fever or erythema and no joint swelling is present. His exam is reassuring with active and passive full range of motion. He is tender overlying the lateral epicondyle of the elbow and the pain is augmented with extension of the hand at the wrist. Review of records does reveal a history of lateral epicondylitis that resolved with prednisone. Today, the patient referred for x-ray. No evidence of acute underlying bony injury. There is no fever, redness, joint swelling and I do not feel that laboratories will aid in the evaluation. I do feel this is consistent with lateral epicondylitis as he has had before. Given that he previously responded to small burst of steroid I will prescribe the same today. He understands to return should he develop a fever, joint swelling, joint redness. HPI General Mode of arrival: ambulatory . Date/Time Provider Initiated Documentation: 07/18/19 12:18 . Limitations to Documentation: no limitations . Information obtained by: patient . History of Present Illness 58 year old M presents to the emergency department with the chief complaint of Left shoulder and left elbow pain after awakening today, described as moderate, Quality is described as dull, and is localized to the left and upper extremity. Patient reports no radiation. Patient started experiencing this hour(s) and it has been constant. Rest improves symptom(s), Movement worsens symptoms . Patient notes denies chest pain, cough, fever/chills, shortness of breath and weakness. Patient did receive the following treatments prior to arrival, none Related Data Home Medications Medication Instructions Recorded Confirmed levalbuterol tartrate [Xopenex HFA] 2 puff INHALATION .Q 6 HRS PRN 10/28/12 07/18/19 nortriptyline 50 mg PO HS 07/16/14 07/18/19 acetaminophen 1,000 mg PO PRN PRN 03/07/18 07/18/19 prednisone 40 mg PO DAILY 5 Days #10 tab 07/18/19 Previous Rx's Medication Instructions Recorded prednisone 40 mg PO DAILY 5 Days #10 tab 07/18/19 Allergies Allergy/AdvReac Type Severity Reaction Status Date / Time aspirin Allergy Intermediate Skin Rash Unverified 03/08/19 17:52 crab Allergy Anaphylaxsi Unverified 03/08/19 17:52 s hydrocodone [Hydrocodone] AdvReac Severe dizzy and Unverified 03/08/19 17:52 nausea lobster Allergy Anaphylaxsi Uncoded 03/08/19 17:52 s General Stated Complaint: Orthopedic BRAEDEN: 4 Review of Systems Narrative: No fall or injury. No rash or swelling. No fever. No travel. No chest pain or shortness of breath. 6 systems reviewed and otherwise negative [facility] Medical History COPD (chronic obstructive pulmonary disease) (Chronic) Obstructive sleep apnea (Chronic) Social History Smoking/Tobacco Use Status: Current every day Tobacco Type: cigarettes Alcohol Intake: current Alcohol Intake frequency: a few times a month Drug use: Never Substance use type: does not use Do you feel safe at home: Yes Do you feel safe in your relationship?: Yes Exam Narrative Exam Narrative: GEN: awake, alert, oriented 3. Pleasant, well groomed, interactive. HEAD: Normocephalic, atraumatic ENT: Mucous membranes moist, oropharynx unremarkable, External ear exam unremarkable EYES: PERRL, EOMI NECK: Full ROM, no PHIL, no menigismus CHEST/RESP: Nontender EXT: Full ROM, no edema, no rash. Mild diffuse tenderness of left upper extremity at the shoulder and elbow joints. There is focal tenderness at the left lateral epicondyle. Motor is 5 out of 5 throughout, sensation intact throughout. The joints are fully mobile. Range of motion is within normal limits. There is no overlying erythema or joint swelling. Neuro: Grossly normal neurologic exam, conversant, interactive. Psych: Speech fluent, thoughts congruent, affect normal Course Vital Signs Vital signs: Vital Signs Temperature 36.6 C 07/18/19 12:22 Pulse 87 07/18/19 12:22 Respiratory Rate 16 07/18/19 12:22 Blood Pressure 146/89 H 07/18/19 12:22 Pulse Oximetry 99 07/18/19 12:22 Temperature 36.6 C 07/18/19 12:22 Temperature Source Tympanic 07/18/19 12:22 Pulse 87 07/18/19 12:22 Respiratory Rate 14 07/18/19 12:24 Respiratory Effort Non-Labored 07/18/19 12:24 Respiratory Depth Normal 07/18/19 12:24 Respiratory Pattern Normal 07/18/19 12:24 Blood Pressure 146/89 H 07/18/19 12:22 Blood Pressure Position Sitting 07/18/19 12:22 Pulse Oximetry 95 07/18/19 12:24 Oxygen Delivery Method Room Air 07/18/19 12:24 Oxygen Flow Rate 0 07/18/19 12:24 Pain Level 5 07/18/19 12:26
--- NOTE | 2019-07-18 13:57 | DI.VRAD_ITS ---
PROCEDURE INFORMATION: Exam: XR Left Shoulder Exam date and time: 07/18/2019 12:44 PM Age: 58 years old Clinical indication: Other: Atraumatic TECHNIQUE: Imaging protocol: XR Left shoulder. Views: 2 or more views. COMPARISON: CR LEFT SHOULDER COMPLETE 12/30/2017 08:29 FINDINGS: Bones/joints: Degenerative changes of the greater tubercle. No evidence for acute bony injury. Soft tissues: Unremarkable. IMPRESSION: No acute bony findings. If clinical symptoms persist recommend followup film in 7-10 days. Dictated and Authenticated by: Enriqueta Odom MD. Ordering:CARRI Bernstein MD
--- NOTE | 2019-07-18 13:58 | DI.VRAD_ITS ---
PROCEDURE INFORMATION: Exam: XR Left Elbow Exam date and time: 07/18/2019 12:48 PM Age: 58 years old Clinical indication: Other: Atraumatic TECHNIQUE: Imaging protocol: XR Left elbow. Views: 1 or 2 views. COMPARISON: No relevant prior studies available. FINDINGS: Bones/joints: Unremarkable. Soft tissues: Unremarkable. IMPRESSION: No evidence for acute bony injury. If clinical symptoms persist recommend followup film in 7-10 days. Dictated and Authenticated by: Enriqueta Odom MD. Ordering:CARRI Bernstein MD
[2019-07-18 14:11] VITALS: BP 121/83; PULSE 76; RESP 16; TEMP 36.8; O2SAT 95
== END 2019-07-18 14:12 | disposition home or self-care (01) ==
PROVIDERS: Emergency Provider Emergency Medicine; PCP Specialist/Technologist Athletic Trainer
DX: M77.12 Lateral epicondylitis, left elbow (principal); M25.512 Pain in left shoulder; J44.9 Chronic obstructive pulmonary disease, unspecified; F17.210 Nicotine dependence, cigarettes, uncomplicated
CPT/HCPCS: 99284; 73030; 73070

== ENCOUNTER 2020-02-01 18:12 | Emergency (ER) | payer MEDICARE, MEDICAID, SELFPAY ==
[2020-02-01] VITALS (24 sets, daily range): BP systolic 110–184; BP diastolic 72–91; PULSE 71–82; RESP 7–30; TEMP 37.1; O2SAT 93–100
--- NOTE | 2020-02-01 18:15 | DI.RAD_ITS ---
EXAM: XR PORTABLE CHEST AP CLINICAL HISTORY: cough, shortness TECHNIQUE: 2D digital imaging was performed. COMPARISON: CR,XR XR CHEST 2V PA LATERAL from 03/08/2019 FINDINGS: LUNGS: Underlying emphysematous and fibrotic changes. There is question of increased densities in th e left lower lung field compared with the previous exam which could represent a developing infiltrate versus atelectasis. No effusion or pneumothorax is seen. HEART: Normal. . IMPRESSION: Emphysematous and fibrotic changes. Question of left lower lobe infiltrate. DATA REPOSITORY: RADIATION DOSE DELIVERED:
--- NOTE | 2020-02-01 18:30 | RT.EKG_ITS ---
APPROVED REPORT Exam: Resting ECG Patient Location: E HR:78 bpm ECG Measurements Heart Rate 78 AXIS GA 176 P 80 QRSd 102 QRS 98 QT 381 T 54 QTc 434 Conclusion Sinus rhythm...normal P axis, V-rate 60- 99 Right axis deviation...QRS axis ( 90,348)
[2020-02-01] MEDS: methylPREDNISolone SUCC 125 MG VIAL IVP (18:49)
[2020-02-01 19:00] LABS: Abs Immature Grans 0.05 10^3/uL (0.0-0.06); Eosinophils % 0.1; HCT 41.2 % (40.0-50.0); HGB 14.4 g/dL (13.5-17.5); Immature Grans % 0.3; Lymphocytes % 4.8; MCH 33.3 pg (27.0-33.0); MCV 95.4 fL (80-95); MPV 9.4 fL (8.0-11.0); Monocytes % 5.1; Neutrophils % 89.7; Nucleated RBC 0 %; Platelet Count 237 10^3/uL (130-400); RBC 4.32 10^6/uL (4.36-5.78); RDW 13.2 % (11.8-14.1); RDW-SD 46.5 fL; WBC 14.59 10^3/uL (4.4-10.8)
[2020-02-01 19:01] LABS: Absolute Eosinophil Count 0.01 10^3/uL (0.0-0.7); Absolute Monocyte Count 0.74 10^3/uL (0.1-0.8); Absolute Neutrophil Count 13.09 10^3/uL (1.2-6.7)
[2020-02-01] MEDS: Albuterol/Ipratropium 3 ML UPD VIAL UPD ×2 (19:04→19:05)
[2020-02-01 19:20] LABS: ALT 16 U/L (16-63); AST 15 U/L (15-37); Albumin 4.5 g/dL (3.4-5.0); Alkaline Phosphatase 85 U/L (46-116); Anion Gap 6.5 mmol/L (3-11); BUN 12 mg/dL (7-18); Bilirubin, Total 1.5 mg/dL (0.2-1.0); CO2 29.5 mmol/L (21.0-32.0); CREATININE 1.04 mg/dL (0.70-1.30); Calcium 9.1 mg/dL (8.5-10.1); Chloride 99 mmol/L (98-107); Glucose 115 mg/dL (74-106); Potassium 4.1 mmol/L (3.5-5.1); Sodium 135 mmol/L (136-145); Total Protein 8.3 g/dL (6.4-8.2); Troponin I < 0.05 ng/mL (<0.06)
--- NOTE | 2020-02-01 19:39 | DI.VRAD_ITS ---
PROCEDURE INFORMATION: Exam: XR Chest, 1 View Exam date and time: 02/01/2020 7:24 PM Age: 59 years old Clinical indication: Cough and shortness of breath; Patient HX: Cough, shortness of breath TECHNIQUE: Imaging protocol: XR of the chest Views: 1 view. COMPARISON: CR XR CHEST 2V PA LATERAL 03/08/2019 6:02 PM FINDINGS: Lungs: Vague asymmetric patchy left lower lobe opacity. Left upper lobe and right lung are otherwise without focal consolidation. Pleural space: No pleural effusion. No pneumothorax. Heart/Mediastinum: Cardiomediastinal contours within normal limits. Vasculature: Vascular calcifications of the aortic arch are present. Bones/joints: No acute osseous finding. IMPRESSION: 1. Vague asymmetric patchy left lower lobe opacity suspicious for infiltrate versus atelectasis. Correlate clinically. 2. Otherwise no acute cardiopulmonary finding. Dictated and Authenticated by: Avelino Montenegro MD. Ordering:IVETTE Pappas MD
--- NOTE | 2020-02-01 19:54 | ED.GENADUL_ITS ---
Discharge Plan Disposition Patient Disposition: HOME Condition: Stable Discharge Details Chief Complaint: SOB Clinical Impression: Asthma exacerbation in COPD, Pneumonia Primary Care Provider: Vasu Ellis ED Provider: Mian Irving Home Meds and New Rx's Prescriptions: New prednisone 20 mg tablet 40 mg PO DAILY Qty: 8 RF: 0 doxycycline hyclate 100 mg tablet 100 mg PO BID Qty: 13 RF: 0 amoxicillin-pot clavulanate [Augmentin] 875-125 mg tablet 1 tab PO BID Qty: 13 RF: 0 Continued nortriptyline 25 MG capsule 50 mg PO HS RF: 0 acetaminophen 500 mg Tablet 1,000 mg PO PRN PRNRF: 0 propranolol 80 mg tablet 80 mg PO BID RF: 0 budesonide-formoterol [Symbicort] 160-4.5 mcg/actuation HFA aerosol inhaler 1 inh INHALATION BID RF: 0 albuterol sulfate [Ventolin HFA] 90 mcg/actuation HFA aerosol inhaler 1 puff INHALATION DAILY PRNQty: 8.5 RF: 0 Discharge Instructions Instructions: COPD (Chronic Obstructive Pulmonary Disease) (ED), Pneumonia (ED) Additional Instructions: Please use your albuterol (Ventolin )inhaler as prescribed with a spacer. 2 puffs every 4 hours as needed for shortness of breath. If you are having to use this more frequently than every 4 hours, please return to the emergency department. Be sure to take antibiotic and prednisone as prescribed. Please contact your primary care physician to arrange follow-up. Return to the ER for any worsening or new concerning symptoms. Stand Alone Forms: PENDING COVID-19 TESTING Referrals: Vasu Ellis [Primary Care Provider] - Medical Decision Making 59-year-old male smoker with history of COPD presents with severe shortness of breath, respiratory distress, associated fatigue and general myalgias. Patient is afebrile. No COVID-19 exposure. Patient to be treated as PUI given symptoms. Screening ECG was reviewed and interpreted by me: Please see report, sinus rhythm 78 bpm, normal axis, nondiagnostic. Chest x-ray was reviewed and interpreted by radiology: Vague asymmetric patchy left lower lobe opacity suspicious for infiltrate versus atelectasis. Correlate clinically. Otherwise no acute cardiopulmonary finding. Patient was given DuoNeb treatment x3. Respiratory therapy was consulted. Solu-Medrol 125 mg IV was administered. Patient was reassessed and notes dramatic improvement after neb treatment. Patient again denies any recent fever or any significant change in chronic cough. On reexamination his lungs are now much more clear he does have some subtle wheeze bilaterally. Respiratory distress has resolved. Patient saturating 94 on room air. I reviewed all results with the patient and we discussed treatment options including admission given his comorbidities. Patient is adamant that he does not want to be admitted at this time but would be willing to return if anything were to worsen. Plan will be for outpatient follow-up with his primary care physician tomorrow. I will provide him a spacer to use with his albuterol inhaler and I did encourage him to use this. I will also continue prednisone and start doxycycline and Augmentin. COVID-19 testing will be sent and pending at time of discharge. Disposition decision was made weighing the risks and benefits of hospitalization versus outpatient treatment, the risk for further decompensation, and the patient's wishes. The patient was stable and requested discharge. Prior to discharge, my usual and customary return precautions were reviewed with the patient - this included follow-up instructions and reason to return to the emergency department if condition worsens, does not improve as expected, or other new concerns arise. HPI General Mode of arrival: ambulatory . Date/Time Provider Initiated Documentation: 02/01/20 18:24 . Limitations to Documentation: no limitations . Information obtained by: patient . HPI Narrative: 59-year-old male with history of COPD presents with chief complaint of shortness of breath. Shortness of breath started a few hours ago and has persisted. Shortness of breath is maya re. He has associated body aches and fatigue today. No chest pain. No leg swelling. No calf pain. No fevers. He has had some cough recently. Patient continues to smoke. He does take his inhalers as prescribed. No known COVID-19 exposure or recent travel. Related Data Home Medications Medication Instructions Recorded Confirmed nortriptyline 50 mg PO HS 07/16/14 02/01/20 acetaminophen 1,000 mg PO PRN PRN 03/07/18 02/01/20 albuterol sulfate [Ventolin HFA] 1 puff INHALATION DAILY PRN #8.5 gm 02/01/20 amoxicillin-pot clavulanate 1 tab PO BID #13 tab 02/01/20 [Augmentin] budesonide-formoterol [Symbicort] 1 inh INHALATION BID 02/01/20 02/01/20 doxycycline hyclate 100 mg PO BID #13 tab 02/01/20 prednisone 40 mg PO DAILY #8 tab 02/01/20 propranolol 80 mg PO BID 02/01/20 02/01/20 Previous Rx's Medication Instructions Recorded albuterol sulfate [Ventolin HFA] 1 puff INHALATION DAILY PRN #8.5 gm 02/01/20 amoxicillin-pot clavulanate 1 tab PO BID #13 tab 02/01/20 [Augmentin] doxycycline hyclate 100 mg PO BID #13 tab 02/01/20 prednisone 40 mg PO DAILY #8 tab 02/01/20 Allergies Allergy/AdvReac Type Severity Reaction Status Date / Time aspirin Allergy Intermediate Skin Rash Unverified 02/01/20 18:47 crab Allergy Anaphylaxsi Unverified 02/01/20 18:47 s hydrocodone [Hydrocodone] AdvReac Severe dizzy and Unverified 02/01/20 18:47 nausea lobster Allergy Anaphylaxsi Uncoded 02/01/20 18:47 s General Stated Complaint: SOB BRAEDEN: 3 Review of Systems All systems reviewed & are unremarkable except as noted in HPI and below Constitutional Constitutional: Denies fever(s) Cardiovascular Cardiovascular: Reports dyspnea Respiratory Respiratory: Reports cough and Reports dyspnea PFSH Medical History COPD (chronic obstructive pulmonary disease) (Chronic) Obstructive sleep apnea (Chronic) Surgical History History of appendectomy (Chronic) Social History Smoking/Tobacco Use Status: Current every day Tobacco Type: cigarettes Alcohol Intake: never Drug use: Never Substance use type: does not use Do you feel safe at home: Yes Do you feel safe in your relationship?: Yes Exam Const General: well developed and in distress mild Orientation: alert and awake HENMT Head: normocephalic Mouth: moist mucous membranes Eyes Conjunctivae: normal conjunctivae Sclera: normal sclerae Neck Neck: trachea midline, supple and no JVD Resp Effort & Inspection: labored, respiratory distress and tachypneic Auscultation: diminished lung sounds bilaterally Cardio Jugular venous pressure: no JVD Rate: regular rate and not tachycardic Rhythm: regular rhythm GI Palpation: soft, not firm, no guarding, no masses, not rigid and nontender Skin General skin exam: no rashes or lesions noted Neuro General: patient alert, patient awake, patient oriented x3 and tone normal Extrem General: no calf tenderness and no edema Psych Appearance: grossly normal Mental Status: mental status grossly normal Speech and Movement: speech and movement normal Course Vital Signs Vital signs: Vital Signs Temperature 37.1 C 02/01/20 18:22 Pulse 82 02/01/20 18:22 Respiratory Rate 24 02/01/20 18:22 Blood Pressure 184/91 H 02/01/20 18:22 Pulse Oximetry 97 02/01/20 18:22 Temperature 37.1 C 02/01/20 18:22 Temperature Source Tympanic 02/01/20 18:22 Pulse 72 02/01/20 19:46 Pulse 73 02/01/20 19:46 Respiratory Rate 22 02/01/20 19:46 Respiratory Effort Labored 02/01/20 18:27 Respiratory Depth Shallow 02/01/20 18:27 Respiratory Pattern Hyperpnea 02/01/20 18:27 Blood Pressure 132/72 02/01/20 19:46 Blood Pressure Mean 85 02/01/20 19:46 Pulse Oximetry 97 02/01/20 19:46 Oxygen Delivery Method Room Air 02/01/20 19:04 Oxygen Flow Rate 0 02/01/20 19:04 Pain Level 5 02/01/20 18:22 Lab/Test Results Lab/Test Results: Laboratory Tests Range/Units 02/01/20 02/01/20 18:45 18:45 WBC (4.4-10.8) 10^3/uL 14.59 H RBC (4.36-5.78) 10^6/uL 4.32 L Hgb (13.5-17.5) g/dL 14.4 Hct (40.0-50.0) % 41.2 MCV (80-95) fL 95.4 H MCH (27.0-33.0) pg 33.3 H MCHC (32.0-36.0) % 35.0 RDW (11.8-14.1) % 13.2 Plt Count (130-400) 10^3/uL 237 MPV (8.0-11.0) fL 9.4 Immature Gran % 0.3 Neutrophils % 89.7 Lymphocytes % 4.8 Monocytes % 5.1 Eosinophils % 0.1 Basophils % 0.0 Nucleated RBC % % 0 Absolute Neutrophils (1.2-6.7) 10^3/uL 13.09 H Absolute Lymphocytes (1.2-3.4) 10^3/uL 0.70 L Absolute Monocytes (0.1-0.8) 10^3/uL 0.74 Absolute Eosinophils (0.0-0.7) 10^3/uL 0.01 Absolute Basophils (0.0-0.2) 10^3/uL 0.00 Sodium (136-145) mmol/L 135 L Potassium (3.5-5.1) mmol/L 4.1 Chloride (98-107) mmol/L 99 Carbon Dioxide (21.0-32.0) mmol/L 29.5 Anion Gap (3-11) mmol/L 6.5 BUN (7-18) mg/dL 12 Creatinine (0.70-1.30) mg/dL 1.04 Estimated GFR/1.73 m2 (mL/min/1.73m2) >= 60.00 Glucose (74-106) mg/dL 115 H Calcium (8.5-10.1) mg/dL 9.1 Total Bilirubin (0.2-1.0) mg/dL 1.5 H AST (15-37) U/L 15 ALT (16-63) U/L 16 Alkaline Phosphatase (46-116) U/L 85 Troponin I (<0.06) ng/mL < 0.05 Total Protein (6.4-8.2) g/dL 8.3 H Albumin (3.4-5.0) g/dL 4.5
--- NOTE | 2020-02-01 20:24 | NUR.NOTE ---
Referral faxed to pcp for follow up care regarding todays visit Nursing Note:
[2020-02-01] MEDS: Amoxicillin 875/Clav. 125 TAB PO (20:27)
[2020-02-01] MEDS: Doxycycline Hyclate 100 MG CAP PO (20:27)
[2020-02-04 02:07] LABS: Patient Race White; SARS-CoV-2 RNA Undetected (Undetected); SARS-CoV-2 Specimen Source Nasal
--- NOTE | 2020-02-09 08:18 | NUR.NOTE ---
Nursing Note: Attempts were made by nursing to contact patient. Phone number in the chart is not working. No one listed on HIPPA form to be able to contact. Result was mailed to patient with Dr. Bryan aware. Karina Wood
== END 2020-02-01 20:35 | disposition home or self-care (01) ==
PROVIDERS: Emergency Provider Student in an Organized Health Care Education/Training Program; PCP Specialist/Technologist Athletic Trainer
DX: J44.1 Chronic obstructive pulmonary disease with (acute) exacerbation (principal); J18.9 Pneumonia, unspecified organism; F17.210 Nicotine dependence, cigarettes, uncomplicated; Z11.59 Encounter for screening for other viral diseases
CPT/HCPCS: 80053; 93005; 94640; 96374; 99285; U0003; 71045; 84484; 85025; 93010; 99284; J2930; J7620

== ENCOUNTER 2020-12-13 13:50 | Outpatient (REF) | payer MEDICARE, MEDICAID, SELFPAY ==
[2020-12-13 22:26] LABS: Anion Gap 6.5 mmol/L (3-11); BUN 13 mg/dL (7-18); CO2 30.5 mmol/L (21.0-32.0); Calcium 9.3 mg/dL (8.5-10.1); Chloride 105 mmol/L (98-107); Glucose 98 mg/dL (74-106); Sodium 142 mmol/L (136-145)
[2020-12-14 18:16] LABS: PSA, Screening 0.7 ng/mL (0.0-4.5)
== END 2020-12-13 13:51 | disposition home or self-care (01) ==
LOC: NCHCN 13:50
PROVIDERS: PCP Specialist/Technologist Athletic Trainer; Visit Provider Nurse Practitioner Family
DX: Z12.5 Encounter for screening for malignant neoplasm of prostate (principal); I10 Essential (primary) hypertension
CPT/HCPCS: 80048; 84153

== ENCOUNTER 2021-01-24 01:27 | Outpatient (CLI) | payer MEDICARE, MEDICAID, SELFPAY ==
--- NOTE | 2021-01-24 | DI.CTLCSR_ITS ---
Exam(s) CT CHEST LUNG CANCER SCREEN EXAM: CT CHEST LUNG CANCER SCREEN CLINICAL HISTORY: SCREENING FOR LUNG CA,CURRENT SMOKER, F17.210 TECHNIQUE: Imaging Protocol: Axial computed tomography images with coronal and sagittal reformatted images were created and reviewed COMPARISON: CT ABD PELVIS WO CONTRAST from 07/09/2012 CT ABD PELVIS WO CONTRAST from 07/09/2012 FINDINGS: Tracheobronchial tree: Patent where visualized. Pulmonary parenchyma: No consolidation or dominant measurable mass. Moderately severe centrilobular e mphysematous changes are present. Lung Nodules: There is a 3 mm triangular shaped perifissural nodule along the left major fissure. No other pulmonary nodules are identified. Mediastinum and Carlota: No dominant adenopathy or fluid collection. Pleura: No effusion or pneumothorax. Heart: The heart is not dilated. Mild coronary artery calcification. No pericardial effusion. Aorta: Thoracic aorta non-dilated.Mild atherosclerosis. Upper abdomen: Unremarkable. Soft Tissues: Unremarkable. Bones: Within normal limits. IMPRESSION: 1. 3 mm triangular shaped Kimberlee visual nodule along the left major fissure. 2. No other pulmonary nodules. Lung RADS Cat 2 - Benign Appearance / Behavior: Nodules with a very low likelihood of becoming a clin ically active cancer due to size or lack of growth Lung-RADS 1.0 CATEGORIES: Category 0 - Prior chest CT exam(s) being located for comparison. Category 1 - Annual screening in 12 months. No nodules or definitely benign nodules. Category 2 - Annual screening in 12 months. Benign appearance. Nodules with low likelihood of becomin g active cancer. Category 3 - 6-month follow-up. Probably benign. Short-term follow-up suggested. Nodules with low lik elihood of becoming active cancer. Category 4A - 3-month follow-up and CT/PET if >8 mm in size. Suspicious finding. Findings which requi re additional testing. Category 4B - Findings which require additional testing and tissue sampling. Suspicious finding. Modifier S- Potentially clinically significant finding. (Non lung cancer) RADIATION DOSE DELIVERED: Total DLP CTDIvol Total DLP CTDIvol DATA REPOSITORY: All CT scans at this facility are submitted to the National Radiology Data Registry (NRDR) Dose Index Registry (DIR) with the [employer] (A[employer]). RADIATION OPTIMIZATION: All CT scans at this facility use at least one of these dose optimization te chniques: automated exposure control; mA and/or kV adjustment per patient size (includes targeted exa ms where dose is matched to clinical indication); or iterative reconstruction.
== END 2021-01-24 01:47 ==
PROVIDERS: PCP Specialist/Technologist Athletic Trainer; Visit Provider Nurse Practitioner Family
DX: F17.210 Nicotine dependence, cigarettes, uncomplicated (principal); R91.1 Solitary pulmonary nodule
CPT/HCPCS: 71271

== ENCOUNTER 2021-04-15 21:19 | Emergency (ER) | payer MEDICARE, MEDICAID, SELFPAY ==
[2021-04-15] VITALS (8 sets, daily range): BP systolic 120–170; BP diastolic 71–98; PULSE 73–98; RESP 8–24; TEMP 36.4; O2SAT 94–98
--- NOTE | 2021-04-15 21:00 | RT.EKG_ITS ---
APPROVED REPORT Exam: Resting ECG Reason for Exam: shortness of breath Patient Location: E HR:87 bpm ECG Measurements Heart Rate 87 AXIS MS 158 P 85 QRSd 105 QRS 102 QT 363 T 61 QTc 434 Conclusion Sinus rhythm...normal P axis, V-rate 60- 99 Ventricular premature complex...V complex w/ short R-R interval Right axis deviation...QRS axis ( 61,505)
--- NOTE | 2021-04-15 21:26 | ED.GENADUL_ITS ---
Discharge Plan Disposition Patient Disposition: HOME Condition: Stable Discharge Details Clinical Impression: Shortness of breath, COPD exacerbation, COVID Primary Care Provider: Milagro Sanchez ED Provider: Jadon Conley Home Meds and New Rx's Prescriptions: New prednisone 20 mg tablet 60 mg PO DAILY 4 Days Qty: 12 RF: 0 Continued nortriptyline 25 MG capsule 50 mg PO HS RF: 0 acetaminophen 500 mg Tablet 1,000 mg PO PRN PRNRF: 0 lisinopril 5 mg tablet 5 mg PO DAILY AM RF: 0 Trelegy Ellipta 100-62.5-25 mcg blister with device INHALATION DAILY AM RF: 0 albuterol sulfate 2.5 mg /3 mL (0.083 %) solution for nebulization 2.5 mg inhalation BID RF: 0 (DME) nebulizer and compressor [Comp-Air Nebulizer Compressor] Device MISCELLANEOUS RF: 0 propranolol 80 mg tablet 80 mg PO BID RF: 0 albuterol sulfate [Ventolin HFA] 90 mcg/actuation HFA aerosol inhaler 1 puff INHALATION DAILY PRNQty: 8.5 RF: 0 Discharge Instructions Instructions: COPD (Chronic Obstructive Pulmonary Disease) (ED), COVID-19 (Coronavirus Disease 2019) (ED) Additional Instructions: Your blood work and cat scan did not show concerning findings. You did test positive for covid you were given monoclonal antibodies to prevent you from becoming ill enough to require hospitalization follow up with your primary care provider within 1 week if you feel more ill, have worsening shortness of breath or severe pain return to the emergency department Medical Decision Making 60 yo male chronic smoker with copd comes in with ems after he had the sudden onset of shortness of breath. HE states he felt well most of the day and was laying in bed watching a movie, got up to change the movie and he had sudden onset shortness of breath. He called ems and on their arrival on room air he had a room air saturation of 97% per report. They gave him 2 nebulizer treatments and methylprednisolone. On arrival he is stable with reassuring vitals, 98% on room air. He is speaking in full sentences and states he feels better after treatment with ems. He has mild wheezing at the apices bilaterally otherwise clear lungs. No jvd, no pitting edema of the legs, soft nontender abdomen. He denies chest pain, fevers, chills. I suspect his symptoms could be from copd though with how sudden they came on could also have been anxiety though he denies history of this in the past. Will evaluate for possible PE with CTA and also evaluate for possible cardiac etiology with ekg and troponin. blood work and imaging unremarkable for acute findings and he feels better no longer having wheezing. He is covid positive and states he is vaccinated. Discussed with pt and he currently is not ill enough to require hospitalization, no oxygen requirement. I discussed monocloncal antibodies and he consents to having this after discussing risks and benefits. Will reassess after monoclonal antibody infusion pt tolerated the infusion well without incident, he remains stable and has normal oxygneation. Will provide prednisone for his copd, no increased cough so donot feel antibiotics indicated. He will f/u with his pcp and return precautions given Differential Diagnosis Differential Diagnosis: copd, pe, anemia, nstemi Medical Records Medical records reviewed: Yes I reviewed the patient's medical records. Imaging Data Radiologic Study: Attestation: I personally reviewed and interpreted this imaging study as follows: Imaging: CT Scan Radiologist's impression: PROCEDURE INFORMATION: Exam: CTA Chest With Contrast Exam date and time: 04/15/2021 21:33 Age: 60 years old Clinical indication: Other: SOB TECHNIQUE: Imaging protocol: Computed tomographic angiography of the chest with contrast. 3D rendering (Not supervised by radiologist): MIP and/or 3D reconstructed images were created by the technologist. Contrast material: OMNIPQUE; Contrast volume: 100 ml; Contrast route: INTRAVENOUS (IV); COMPARISON: CT CHEST LUNG CANCER SCREEN 01/24/2021 13:20 FINDINGS: Pulmonary arteries: No pulmonary emboli. Aorta: No aortic aneurysm. No aortic dissection. Lungs: There are benign, calcified pulmonary granulomas. There are a few very small noncalcified pulmonary nodules which are statistically benign. Follow-up as per institutional protocol. Moderate pulmonary emphysema again seen. Pleural spaces: No pneumothorax. No pleural effusion. Heart: No cardiomegaly. No pericardial effusion. Lymph nodes: No enlarged lymph nodes. Liver: Benign-appearing hepatic probable cysts. Bones/joints: Chronic minor loss of height in the thoracic spine. No acute fracture or subluxation. Soft tissues: Gynecomastia. IMPRESSION: 1. No pulmonary emboli are seen. Lab Data Lab results reviewed: Yes I reviewed the patient's lab results. ECG Data Attestation: I personally reviewed and interpreted this ECG (s) as follows: Prior ECG tracings: available for review Interpretation: sinus rhythm, rate of 87, no acute st t wave ischemic findings HPI General Mode of arrival: EMS . Date/Time Provider Initiated Documentation: 04/15/21 21:22 . Limitations to Documentation: no limitations . Information obtained by: patient . History of Present Illness 60 year old M presents to the emergency department with the chief complaint of shortness of breath, described as moderate, Patient started experiencing this hour(s) (3) and it has been other (improving after 2 nebs). other things that improve symptom(s), (nebulizer) No exacerbating factors reported . Patient notes no other symptoms.. Related Data Home Medications Medication Instructions Recorded Confirmed nortriptyline 50 mg PO HS 07/16/14 04/15/21 acetaminophen 1,000 mg PO PRN PRN 03/07/18 02/01/20 albuterol sulfate [Ventolin HFA] 1 puff INHALATION DAILY PRN #8.5 gm 02/01/20 04/15/21 propranolol 80 mg PO BID 02/01/20 04/15/21 Trelegy Ellipta INHALATION DAILY AM 04/15/21 albuterol sulfate 2.5 mg INHALATION BID 04/15/21 04/15/21 lisinopril 5 mg PO DAILY AM 04/15/21 04/15/21 nebulizer and compressor [Comp-Air 04/15/21 04/15/21 Nebulizer Compressor] prednisone 60 mg PO DAILY 4 Days #12 tab 04/15/21 Previous Rx's Medication Instructions Recorded albuterol sulfate [Ventolin HFA] 1 puff INHALATION DAILY PRN #8.5 gm 02/01/20 prednisone 60 mg PO DAILY 4 Days #12 tab 04/15/21 Allergies Allergy/AdvReac Type Severity Reaction Status Date / Time aspirin Allergy Intermediate Skin Rash Unverified 04/15/21 21:20 crab Allergy Anaphylaxsi Unverified 04/15/21 21:20 s hydrocodone [Hydrocodone] AdvReac Severe dizzy and Unverified 04/15/21 21:20 nausea lobster Allergy Anaphylaxsi Uncoded 04/15/21 21:20 s General Stated Complaint: SOB BRAEDEN: 2 Review of Systems All systems reviewed & are unremarkable except as noted in HPI and below Constitutional Constitutional: Denies chills, Denies fever(s) and Denies weakness Cardiovascular Cardiovascular: Denies chest pain Respiratory Respiratory: Denies cough Gastrointestinal Gastrointestinal: Denies abdominal pain, Denies nausea and Denies vomiting Musculoskeletal Musculoskeletal: Denies joint swelling Neurologic Neurologic: Denies weakness Psychiatric Psychiatric: Denies depression [facility] Active Problem List (Updated 04/15/21 @ 22:28 by Jadon Conley MD) Epicondylitis, lateral, left (Acute) Shortness of breath (Acute) COPD exacerbation (Acute) COVID (Acute) Right lateral epicondylitis (Acute) Medical History (Updated 04/15/21 @ 22:28 by Jadon Conley MD) COPD (chronic obstructive pulmonary disease) Obstructive sleep apnea Surgical History History of appendectomy Social History Smoking/Tobacco Use Status: Current every day Tobacco Type: cigarettes Smoking risk assessment performed?: Yes Alcohol Intake: never Drug use: Never Substance use type: does not use Do you feel safe at home: Yes Do you feel safe in your relationship?: Yes Exam Const General: no acute distress Orientation: alert HENMT Head: normal to inspection Ears: external ears normal General nose exam: external nose normal Mouth: moist mucous membranes Eyes General: appearance normal, both eyes and all related structures Neck Neck: normal visual inspection Resp Effort & Inspection: normal respiratory effort and able to speak in complete sentences Cardio Rate: regular rate Skin General skin exam: no rashes or lesions noted Neuro General: patient alert and patient oriented x3 Extrem General: normal to inspection Psych Mental Status: mental status grossly normal Course Vital Signs Vital signs: Vital Signs Temperature 36.4 C L 04/15/21 21:21 Pulse 98 H 04/15/21 21:21 Respiratory Rate 24 04/15/21 21:21 Blood Pressure 160/98 H 04/15/21 21:21 Pulse Oximetry 98 04/15/21 21:21 Temperature 36.4 C L 04/15/21 21:21 Temperature Source Temporal Artery Scan 04/15/21 21:21 Pulse 98 H 04/15/21 21:21 Respiratory Rate 24 04/15/21 21:21 Blood Pressure 160/98 H 04/15/21 21:21 Blood Pressure Position Supine 04/15/21 21:21 Pulse Oximetry 98 04/15/21 21:21 Oxygen Delivery Method Room Air 04/15/21 21:21 Oxygen Flow Rate 0 04/15/21 21:21 Pain Level 0 04/15/21 21:21
[2021-04-15 21:28] LABS: BE (Venous) 4 mmol/L (-2-3); HCO3 (Venous) 30 mmol/L (23-28); O2 Sat (Venous) 40 %; TCO2 (Venous) 28 mmol/L (24-29); pCO2 (Venous) 58 mmHg (41-51); pH (Venous) 7.32 (7.31-7.41); pO2 (Venous) 24 mmHg
--- NOTE | 2021-04-15 21:30 | DI.CT_ITS ---
Exam(s) CT CHEST PE CTA EXAM: CT CHEST PE CTA CLINICAL HISTORY: shortness of breath. TECHNIQUE: Imaging Protocol: Axial CT angiography was performed with multi-slice acquisition and mu lti-planar and/or 3D reconstructions. CONTRAST MATERIAL: Intravenous: Omnipaque 350 Contrast volume:structured data in ml COMPARISON: CT CT CHEST LUNG CANCER SCREEN from 01/24/2021 FINDINGS: CT angiography of the chest was performed with intravenous infusion of 100 cc of Omnipaque 350. There are severe pulmonary central lobular emphysematous changes. There is a calcified granuloma of the right lung base. There is a 4 millimeter mean diameter lingular nodule, follow-up chest CT recom mended in 12 months.. No pleural effusion. Tracheobronchial tree appears intact. No evidence of pulmonary embolic disease. Thoracic aorta is of normal diameter, no thoracic aortic an eurysm or dissection, major branch vessels appear intact. No mediastinal or hilar adenopathy. Images obtained through the upper abdomen show unremarkable appearance of the visualized portions of the liver, spleen, pancreas, adrenals, and kidneys. IMPRESSION: 4 millimeter mean diameter lingular nodule, noncalcified. Follow-up chest CT recommended in 12 month s. No evidence of pulmonary embolic disease. Incidental Findings RADIATION DOSE DELIVERED: 408.56mGy.cm Total DLP 408.56mGy.cm Total DLP CTDIvol DATA REPOSITORY: All CT scans at this facility are submitted to the National Radiology Data Registry (NRDR) Dose Index Registry (DIR) with the [employer] (A[employer]). RADIATION OPTIMIZATION: All CT scans at this facility use at least one of these dose optimization te chniques: automated exposure control; mA and/or kV adjustment per patient size (includes targeted exa ms where dose is matched to clinical indication); or iterative reconstruction.
[2021-04-15 21:33] LABS: Source Nasal/Nares
[2021-04-15 21:33] LABS: Abs Immature Grans 0.03 10^3/uL (0.0-0.06); Absolute Basophil Count 0.01 10^3/uL (0.0-0.2); Absolute Eosinophil Count 0.04 10^3/uL (0.0-0.7); Absolute Lymphocyte Count 1.34 10^3/uL (1.2-3.4); Absolute Monocyte Count 1.24 10^3/uL (0.1-0.8); Absolute Neutrophil Count 5.89 10^3/uL (1.2-6.7); Basophils % 0.1; Eosinophils % 0.5; HCT 35.7 % (40.0-50.0); HGB 12.1 g/dL (13.5-17.5); Immature Grans % 0.4; Lymphocytes % 15.7; MCH 32.5 pg (27.0-33.0); MCHC 33.9 % (32.0-36.0); MPV 8.8 fL (8.0-11.0); Monocytes % 14.5; Neutrophils % 68.8; Nucleated RBC 0 %; Platelet Count 214 10^3/uL (130-400); RBC 3.72 10^6/uL (4.36-5.78); RDW 13.2 % (11.8-14.1); RDW-SD 47.1 fL; WBC 8.55 10^3/uL (4.4-10.8)
[2021-04-15 21:52] LABS: ALT 19 U/L (16-63); AST 10 U/L (15-37); Albumin 3.8 g/dL (3.4-5.0); Alkaline Phosphatase 88 U/L (46-116); Anion Gap 6.5 mmol/L (3-11); BUN 16 mg/dL (7-18); Bilirubin, Total 0.7 mg/dL (0.2-1.0); CO2 30.5 mmol/L (21.0-32.0); CREATININE 1.1 mg/dL (0.70-1.30); Calcium 8.7 mg/dL (8.5-10.1); Chloride 100 mmol/L (98-107); Glucose 124 mg/dL (74-106); Potassium 3.9 mmol/L (3.5-5.1); Sodium 137 mmol/L (136-145); TSH (W/Ref FT4) 0.65 uIU/mL (0.36-3.74); Total Protein 7.5 g/dL (6.4-8.2); Troponin I < 0.05 ng/mL (<0.06)
[2021-04-15] MEDS: Normal Saline Flush 10 ML SYR IVP (21:57)
[2021-04-15] MEDS: Omnipaque 350 MG/ML 100 ML BTL IJ (21:57)
[2021-04-15] MEDS: Normal Saline - Diluent 50 ML VIAL IV (21:57)
[2021-04-15] MEDS: Albuterol/Ipratropium 3 ML UPD VIAL UPD (22:19)
[2021-04-15 22:27] LABS: COVID-19 PCR POSITIVE (Negative)
--- NOTE | 2021-04-15 22:28 | DI.VRAD_ITS ---
PROCEDURE INFORMATION: Exam: CTA Chest With Contrast Exam date and time: 04/15/2021 21:33 Age: 60 years old Clinical indication: Other: SOB TECHNIQUE: Imaging protocol: Computed tomographic angiography of the chest with contrast. 3D rendering (Not supervised by radiologist): MIP and/or 3D reconstructed images were created by the technologist. Contrast material: OMNIPQUE; Contrast volume: 100 ml; Contrast route: INTRAVENOUS (IV); COMPARISON: CT CHEST LUNG CANCER SCREEN 01/24/2021 13:20 FINDINGS: Pulmonary arteries: No pulmonary emboli. Aorta: No aortic aneurysm. No aortic dissection. Lungs: There are benign, calcified pulmonary granulomas. There are a few very small noncalcified pulmonary nodules which are statistically benign. Follow-up as per institutional protocol. Moderate pulmonary emphysema again seen. Pleural spaces: No pneumothorax. No pleural effusion. Heart: No cardiomegaly. No pericardial effusion. Lymph nodes: No enlarged lymph nodes. Liver: Benign-appearing hepatic probable cysts. Bones/joints: Chronic minor loss of height in the thoracic spine. No acute fracture or subluxation. Soft tissues: Gynecomastia. IMPRESSION: 1. No pulmonary emboli are seen. 2. Moderate pulmonary emphysema again seen. 3. Incidental findings as described. Dictated and Authenticated by: Jennifer Deleon MD. Ordering:FATMATA Diop MD
[2021-04-16] VITALS (9 sets, daily range): BP systolic 113–134; BP diastolic 76–80; PULSE 64–78; RESP 18–24; O2SAT 93–96
== END 2021-04-16 01:55 | disposition home or self-care (01) ==
LOC: ER 22:33
PROVIDERS: Emergency Provider Emergency Medicine; PCP Nurse Practitioner Family
DX: U07.1 COVID-19 (principal); J44.1 Chronic obstructive pulmonary disease with (acute) exacerbation; F17.210 Nicotine dependence, cigarettes, uncomplicated
CPT/HCPCS: 71275; 80053; 82805; 87635; 93005; 94640; 96365; 99285; 83735; 84443; 84484; 85025; 93010; 99284; J3490; J7620

== ENCOUNTER 2021-05-20 21:14 | Emergency (ER) | payer MEDICARE, MEDICAID, SELFPAY ==
[2021-05-20] VITALS (11 sets, daily range): BP systolic 114–191; BP diastolic 71–105; PULSE 67–102; RESP 7–28; TEMP 36.6; O2SAT 85–100
--- NOTE | 2021-05-20 21:15 | RT.EKG_ITS ---
APPROVED REPORT Exam: Resting ECG Reason for Exam: SOB Patient Location: E HR:89 bpm ECG Measurements Heart Rate 89 AXIS IA 170 P 89 QRSd 96 QRS 104 QT 357 T 83 QTc 435 Conclusion Sinus rhythm...normal P axis, V-rate 60- 99 Right axis deviation...QRS axis ( 92,905)
--- NOTE | 2021-05-20 21:22 | ED.GENADUL_ITS ---
Discharge Plan Disposition Patient Disposition: HOME Condition: Stable Discharge Details Clinical Impression: COPD exacerbation Primary Care Provider: Milagro Sanchez ED Provider: Angeles Maldonado Home Meds and New Rx's Prescriptions: New prednisone 20 mg tablet 60 mg PO DAILY 5 Days Qty: 15 RF: 0 Continued nortriptyline 25 MG capsule 50 mg PO HS RF: 0 acetaminophen 500 mg Tablet 1,000 mg PO PRN PRNRF: 0 lisinopril 5 mg tablet 5 mg PO DAILY AM RF: 0 Trelegy Ellipta 100-62.5-25 mcg blister with device 100 inh INHALATION DAILY AM RF: 0 albuterol sulfate 2.5 mg /3 mL (0.083 %) solution for nebulization 2.5 mg inhalation BID RF: 0 propranolol 80 mg tablet 80 mg PO BID RF: 0 albuterol sulfate [Ventolin HFA] 90 mcg/actuation HFA aerosol inhaler 1 puff INHALATION DAILY PRNQty: 8.5 RF: 0 No Action (DME) nebulizer and compressor [Comp-Air Nebulizer Compressor] Device MISCELLANEOUS RF: 0 Discharge Instructions Instructions: How to Stop Smoking (ED), COPD (Chronic Obstructive Pulmonary Disease) (ED) Additional Instructions: At this time your chest x-ray, blood work are all largely within normal limits. No evidence for pneumonia Covid is negative. I do feel this is a exacerbation of your COPD. Please take the prednisone 3 tablets a day for the next 5 days. Follow up with primary care provider in 3-5 days. Return to ED sooner if any worsening or concerns. Increase oral fluids. Continue to take your albuterol inhaler every 4-6 hours or more frequently if needed. Please try to stop smoking or cut back on smoking if possible. Referrals: Milagro Sancehz [Primary Care Provider] - 5 days Medical Decision Making 60-year-old male presents to the ER chief complaint of shortness of breath for approximately 45 minutes prior to arrival. Patient states that he was sitting when the onset started. He denies any chest pain. He does have a history of COPD and uses a trilogy inhaler in the a.m. and albuterol as needed. He did take 2 albuterol nebulizers today. He is a current daily smoker. He denies any abdominal pain, nausea vomiting diarrhea. He is satting 85% on room air upon initial exam. He is placed on 2 L nasal cannula and his oxygen sat improved to 97%. Other past medical history includes obstructive sleep apnea and appendectomy. He denies any alcohol or drugs. Cardiac work-up ordered. VBG ordered. DuoNeb and 125 mg Solu-Medrol IV. Initial exam notes some wheezing in the left lower bases diminished on the right side. Patient initially came in satting 85% on room air. EKG was reviewed by Dr. Ranjith Conley MD ER attending, please see his official report review. Old EKG available for review. Views: 1 view. COMPARISON: CT CHEST LUNG CANCER SCREEN 01/24/2021 1:20 PM FINDINGS: Lungs: Emphysematous changes are seen, most pronounced within the upper lobes bilaterally, similar when compared to the prior study. No focal pulmonary infiltrate. A few peripheral reticular markings are seen within the lung bases. The lungs are hyperexpanded with flattening of the hemidiaphragms. Pleural spaces: Unremarkable. No pleural effusion. No pneumothorax. Heart/Mediastinum: The cardiac silhouette is normal in size. Bones/joints: Unremarkable. IMPRESSION: COPD and emphysema with peripheral reticular markings, which may represent early, minimal pulmonary edema. Thank you for allowing us to participate in the care of your patient. Dictated and Authenticated by: Saige Galvan MD CBC shows white blood cell count of 10.4, VBG shows pH 7.35, PCO2 56, PO2 30 bicarb 30 0-28 O2 sat 56%, CMP shows sodium 142, potassium 3.4, calcium 7.3, Covid is negative. 2245: Patient reevaluation after the nebulizer. He reports feeling much better. Placed on room air trial, satting 95% while speaking in full sentences. Lungs are more clear to auscultation. Discussed results with patient we will place him on 60 mg prednisone once daily x5 days. Instructed him to follow-up with PCP and discuss strict return instructions. Patient discharged home instructed on albuterol use and smoking cessation, verbalized understanding. This text was generated using [employer]ist[employer] system, please disregard any oddities of phrase or misspellings. HPI General Mode of arrival: wheelchair . Date/Time Provider Initiated Documentation: 05/20/21 21:16 . Limitations to Documentation: no limitations . Information obtained by: patient and RN notes reviewed . HPI Narrative: 60-year-old male presents to the ER chief complaint of shortness of breath for approximately 45 minutes prior to arrival. Patient states that he was sitting when the onset started. He denies any chest pain. He does have a history of COPD and uses a trilogy inhaler in the a.m. and albuterol as needed. He did take 2 albuterol nebulizers today. He is a current daily smoker. He denies any abdominal pain, nausea vomiting diarrhea. He is satting 85% on room air upon initial exam. He is placed on 2 L nasal cannula and his oxygen sat improved to 97%. Other past medical history includes obstructive sleep apnea and appendectomy. He denies any alcohol or drugs. Related Data Home Medications Medication Instructions Recorded Confirmed nortriptyline 50 mg PO HS 07/16/14 05/20/21 acetaminophen 1,000 mg PO PRN PRN 03/07/18 05/20/21 albuterol sulfate [Ventolin HFA] 1 puff INHALATION DAILY PRN #8.5 gm 02/01/20 05/20/21 propranolol 80 mg PO BID 02/01/20 05/20/21 Trelegy Ellipta 100 inh INHALATION DAILY AM 04/15/21 05/20/21 albuterol sulfate 2.5 mg INHALATION BID 04/15/21 05/20/21 lisinopril 5 mg PO DAILY AM 04/15/21 05/20/21 nebulizer and compressor [Comp-Air 04/15/21 05/20/21 Nebulizer Compressor] prednisone 60 mg PO DAILY 5 Days #15 tab 05/20/21 Previous Rx's Medication Instructions Recorded albuterol sulfate [Ventolin HFA] 1 puff INHALATION DAILY PRN #8.5 gm 02/01/20 prednisone 60 mg PO DAILY 5 Days #15 tab 05/20/21 Allergies Allergy/AdvReac Type Severity Reaction Status Date / Time aspirin Allergy Intermediate Skin Rash Unverified 05/20/21 21:21 crab Allergy Anaphylaxsi Unverified 05/20/21 21:21 s hydrocodone [Hydrocodone] AdvReac Severe dizzy and Unverified 05/20/21 21:21 nausea lobster Allergy Anaphylaxsi Uncoded 05/20/21 21:21 s General Stated Complaint: RespSymp BRAEDEN: 2 Review of Systems All systems reviewed & are unremarkable except as noted in HPI and below Cardiovascular Cardiovascular: Denies chest pain, Denies pedal edema, Reports dyspnea and Reports dyspnea on exertion Respiratory Respiratory: Reports as per HPI, Reports dyspnea, Reports dyspnea on exertion and Reports wheezing Gastrointestinal Gastrointestinal: Denies diarrhea, Denies nausea and Denies vomiting Allergic/Immunologic Allergic/Immunologic: Reports wheezing PFSH All Active Problems (Updated 05/20/21 @ 22:43 by Angeles Maldonado) Epicondylitis, lateral, left (Acute) Shortness of breath (Acute) COPD exacerbation (Acute) COVID (Acute) Right lateral epicondylitis (Acute) Medical History (Updated 05/20/21 @ 22:43 by Angeles Maldonado) COPD (chronic obstructive pulmonary disease) Obstructive sleep apnea Surgical History History of appendectomy Social History Smoking/Tobacco Use Status: Current every day Tobacco Type: cigarettes Smoking risk assessment performed?: Yes Alcohol Intake: never Drug use: Never Substance use type: does not use Do you feel safe at home: Yes Do you feel safe in your relationship?: Yes Exam Narrative Exam Narrative: constitutional: Alert and oriented x3. Appears stated age. Normal body habitus. Head: Normocephalic, no trauma. Eyes: Pupils PERRL, Red reflex noted, EOM's intact. Eyelids symmetrical without lesions, discharge, or swelling. ENT: Bilateral TM's WNL, External ear normal to inspection, no mastoid TTP, swelling, or erythema, Nasal turbinates WNL, no nasal discharge. Normal dentition, Posterior pharynx WNL, no exudate. Chest: RRR, Normal S1, S2, distal pulses intact. Resp: Left lower lobe expiratory wheezes noted diminished on the right. Prolonged expiratory. Abdomen: Soft, non-distended, Normoactive bowel sounds all 4 quads. Musculoskeletal: Normal gait, 5/5 strength to all four extremities. Skin: No suspicious rashes or lesions. Capillary refill less than 2 sec. Neurologic: Cranial nerves II-XII intact. Alert and oriented x 3. Motor: No deficits noted. Sensory: Intact bilaterally all 4 extremities. Reflexes: DTR's intact bilaterally.. Hematologic/Lymphatic: No ecchymosis, no lymphadenopathy. Course Vital Signs Vital signs: Vital Signs Temperature 36.6 C 05/20/21 21:18 Pulse 102 H 05/20/21 21:18 Respiratory Rate 28 H 05/20/21 21:18 Blood Pressure 191/105 H 05/20/21 21:18 Pulse Oximetry 85 L 05/20/21 21:18 Temperature 36.6 C 05/20/21 21:18 Pulse 102 H 05/20/21 21:18 Respiratory Rate 28 H 05/20/21 21:18 Blood Pressure 191/105 H 05/20/21 21:18 Blood Pressure Position Sitting 05/20/21 21:18 Pulse Oximetry 85 L 05/20/21 21:18 Oxygen Delivery Method Room Air 05/20/21 21:18 Oxygen Flow Rate 0 05/20/21 21:18 Pain Level 0 05/20/21 21:18
--- NOTE | 2021-05-20 21:30 | DI.RAD_ITS ---
Exam(s) XR PORTABLE CHEST AP EXAM: XR PORTABLE CHEST AP CLINICAL HISTORY: PUI, SOB. TECHNIQUE: 2D digital imaging was performed. COMPARISON: CR,XR XR PORTABLE CHEST AP from 02/01/2020 FINDINGS: Heart size is upper normal. The mediastinum is not widened. Emphysematous changes noted but no infiltrates nor pleural effusions. No pulmonary edema. IMPRESSION: No acute pulmonary findings on this single AP portable view of the chest. COPD emphysematous changes again noted. DATA REPOSITORY: RADIATION DOSE DELIVERED: All CT scans at this facility use at least one of these dose optimization techniques: automated exposure control; mA and/or kV adjustment per patient size (includes targeted e xams where dose is matched to clinical indication); or iterative reconstruction.
[2021-05-20 21:36] LABS: Source Nasal/Nares
[2021-05-20 21:39] LABS: BE (Venous) 5 mmol/L (-2-3); HCO3 (Venous) 30 mmol/L (23-28); O2 Sat (Venous) 56 %; TCO2 (Venous) 28 mmol/L (24-29); pCO2 (Venous) 56 mmHg (41-51); pH (Venous) 7.34 (7.31-7.41); pO2 (Venous) 30 mmHg
[2021-05-20] MEDS: methylPREDNISolone SUCC 125 MG VIAL IVP (21:42)
[2021-05-20] MEDS: Albuterol/Ipratropium 3 ML UPD VIAL UPD (21:42)
[2021-05-20 21:44] LABS: Abs Immature Grans 0.03 10^3/uL (0.0-0.06); Absolute Basophil Count 0.02 10^3/uL (0.0-0.2); Absolute Eosinophil Count 0.17 10^3/uL (0.0-0.7); Absolute Monocyte Count 1.05 10^3/uL (0.1-0.8); Basophils % 0.2; Eosinophils % 1.6; HCT 38.3 % (40.0-50.0); Immature Grans % 0.3; Lymphocytes % 17.5; MCH 32.7 pg (27.0-33.0); MCHC 33.9 % (32.0-36.0); MCV 96.5 fL (80-95); MPV 9.3 fL (8.0-11.0); Monocytes % 9.7; Neutrophils % 70.7; Nucleated RBC 0 %; Platelet Count 253 10^3/uL (130-400); RBC 3.97 10^6/uL (4.36-5.78); RDW 13.8 % (11.8-14.1); RDW-SD 48.9 fL; WBC 10.84 10^3/uL (4.4-10.8)
[2021-05-20 21:48] LABS: Absolute Neutrophil Count 7.66 10^3/uL (1.2-6.7)
--- NOTE | 2021-05-20 22:10 | DI.VRAD_ITS ---
PROCEDURE INFORMATION: Exam: XR Chest Exam date and time: 05/20/2021 9:33 PM Age: 60 years old Clinical indication: Shortness of breath TECHNIQUE: Imaging protocol: XR of the chest. Views: 1 view. COMPARISON: CT CHEST LUNG CANCER SCREEN 01/24/2021 1:20 PM FINDINGS: Lungs: Emphysematous changes are seen, most pronounced within the upper lobes bilaterally, similar when compared to the prior study. No focal pulmonary infiltrate. A few peripheral reticular markings are seen within the lung bases. The lungs are hyperexpanded with flattening of the hemidiaphragms. Pleural spaces: Unremarkable. No pleural effusion. No pneumothorax. Heart/Mediastinum: The cardiac silhouette is normal in size. Bones/joints: Unremarkable. IMPRESSION: COPD and emphysema with peripheral reticular markings, which may represent early, minimal pulmonary edema. Dictated and Authenticated by: Saige Galvan MD. Ordering:ROMELIA Reynoso MD
[2021-05-20 22:18] LABS: COVID-19 PCR Negative (Negative)
[2021-05-20 22:30] LABS: ALT 23 U/L (16-63); AST 18 U/L (15-37); Albumin 3.3 g/dL (3.4-5.0); Alkaline Phosphatase 69 U/L (46-116); Anion Gap 6.5 mmol/L (3-11); BUN 16 mg/dL (7-18); Bilirubin, Total 0.6 mg/dL (0.2-1.0); CO2 26.5 mmol/L (21.0-32.0); Calcium 7.3 mg/dL (8.5-10.1); Chloride 109 mmol/L (98-107); Glucose 96 mg/dL (74-106); Magnesium 1.8 mg/dL (1.8-2.4); Potassium 3.4 mmol/L (3.5-5.1); Sodium 142 mmol/L (136-145); Total Protein 6.3 g/dL (6.4-8.2); Troponin I < 50 ng/L (<or=60)
== END 2021-05-20 22:45 | disposition home or self-care (01) ==
PROVIDERS: Emergency Provider Registered Nurse Emergency; PCP Nurse Practitioner Family
DX: J44.1 Chronic obstructive pulmonary disease with (acute) exacerbation (principal); F17.210 Nicotine dependence, cigarettes, uncomplicated
CPT/HCPCS: 36415; 80053; 82805; 87635; 93005; 94640; 96374; 99284; 71045; 83735; 84484; 85025; 93010; J2930; J7620

== ENCOUNTER 2021-06-05 21:48 | Emergency (ER) | payer MEDICARE, MEDICAID, SELFPAY ==
[2021-06-05] VITALS (25 sets, daily range): BP systolic 111–191; BP diastolic 72–101; PULSE 65–96; RESP 6–30; TEMP 36.4; O2SAT 88–100
--- NOTE | 2021-06-05 21:45 | RT.EKG_ITS ---
APPROVED REPORT Exam: Resting ECG Reason for Exam: SHORT OF BREATH Patient Location: E HR:85 bpm ECG Measurements Heart Rate 85 AXIS [place] 162 P 85 QRSd 97 QRS 102 QT 356 T 74 QTc 424 Conclusion Sinus rhythm...normal P axis Right axis deviation.
--- NOTE | 2021-06-05 21:45 | DI.RAD_ITS ---
Exam(s) XR PORTABLE CHEST AP EXAM: XR PORTABLE CHEST AP CLINICAL HISTORY: Shortness of breath. TECHNIQUE: 2D digital imaging was performed. COMPARISON: CR,XR XR PORTABLE CHEST AP from 05/20/2021 FINDINGS: LUNGS: Clear. No pleural abnormality seen. HEART: Normal. MEDIASTINUM: Normal. OTHER FINDINGS: None. IMPRESSION: No acute pulmonary findings. DATA REPOSITORY: RADIATION DOSE DELIVERED: Total DLP
[2021-06-05] MEDS: Albuterol/Ipratropium 3 ML UPD VIAL UPD ×2 (22:10→22:31)
[2021-06-05] MEDS: methylPREDNISolone SUCC 125 MG VIAL IVP (22:11)
[2021-06-05 22:13] LABS: Source Nasal/Nares
--- NOTE | 2021-06-05 22:24 | ED.GENADUL_ITS ---
Discharge Plan Disposition Patient Disposition: HOME Condition: Stable Discharge Details Clinical Impression: COPD exacerbation, Shortness of breath Primary Care Provider: Milagro Sanchez ED Provider: Jadon Conley Home Meds and New Rx's Prescriptions: New prednisone 20 mg tablet 60 mg PO DAILY 4 Days Qty: 12 RF: 0 Continued nortriptyline 25 MG capsule 50 mg PO HS RF: 0 acetaminophen 500 mg Tablet 1,000 mg PO PRN PRNRF: 0 lisinopril 5 mg tablet 5 mg PO DAILY AM RF: 0 Trelegy Ellipta 100-62.5-25 mcg blister with device 100 inh INHALATION DAILY AM RF: 0 albuterol sulfate 2.5 mg /3 mL (0.083 %) solution for nebulization 2.5 mg inhalation BID RF: 0 (DME) nebulizer and compressor [Comp-Air Nebulizer Compressor] Device MISCELLANEOUS RF: 0 propranolol 80 mg tablet 80 mg PO BID RF: 0 albuterol sulfate [Ventolin HFA] 90 mcg/actuation HFA aerosol inhaler 1 puff INHALATION DAILY PRNQty: 8.5 RF: 0 Discharge Instructions Instructions: COPD (Chronic Obstructive Pulmonary Disease) (ED) Additional Instructions: follow up with your primary care provider within 1 week if you feel more ill, have worsening shortness of breath or chest pain return to the emergency department Discharge Data Discharge Date/Time-TO BE ENTERED AT DEPARTURE: 06/06/21 01:09 Medical Decision Making <Alan Ayers NP - Last Filed: 06/07/21 09:37> Patient presenting to the emergency department for chief complaint of shortness of breath. Patient reports while sitting at home he became acutely short of breath around 1 hour ago. Patient attempted to use his nebulizers at home but stated no improvement of symptoms so came to the emergency department. Patient denies any pain or discomfort at this time. He does state similar episode in [facility]. Physical exam shows that patient has mild to moderate respiratory distress with increased work of breathing. Patient is not hypoxic tachycardic and other vital signs are stable. Patient's lung sounds show mild diminished sounds in the bases with slight expiratory wheeze in bases otherwise unremarkable exam. Patient states that he is fully vaccinated with no known contact to COVID-19 and denies any cold-like symptoms. Plan to check labs including EKG and portable chest x-ray. Pending results patient to receive 2 DuoNeb's, 500 mL bolus of normal saline, and Solu-Medrol. Current working diagnosis of COPD with acute exacerbation. Review of initial labs show that patient is slightly anemic but noncritical, VBG is within normal limits, slightly increased BUN and glucose but otherwise nondiagnostic CMP, negative for COVID, negative initial troponin and BNP. Reassessed patient and patient stated improvement of symptoms, given sudden onset of symptoms patient is agreeable to staying for delta troponin. ECG Data Interpretation: Reviewed EKG with attending physician. Please see signed document for full report. Sinus rhythm with right axis deviation is noted otherwise nondiagnostic EKG. <Jadon Conley MD - Last Filed: 06/06/21 00:53> patients second troponin unchanged, he is currently asymptomatic and 97% on room air. Will discharge and have him f/u with pcp return precautions given HPI <Alan Ayers NP - Last Filed: 06/07/21 09:37> General Mode of arrival: wheelchair . Date/Time Provider Initiated Documentation: 06/05/21 21:48 . Limitations to Documentation: no limitations . Information obtained by: patient . History of Present Illness 60 year old M presents to the emergency department with the chief complaint of Shortness of breath, described as similar to prior episodes, Quality is described as other (Denies pain), Patient started experiencing this hour(s) (1) and it has been constant. No relieving factors improve symptom(s), No exacerbating factors reported . Patient notes no other symptoms.. Patient did receive the following treatments prior to arrival, other (Nebulizer) Related Data Home Medications Medication Instructions Recorded Confirmed nortriptyline 50 mg PO HS 07/16/14 05/20/21 acetaminophen 1,000 mg PO PRN PRN 03/07/18 05/20/21 albuterol sulfate [Ventolin HFA] 1 puff INHALATION DAILY PRN #8.5 gm 02/01/20 05/20/21 propranolol 80 mg PO BID 02/01/20 05/20/21 Trelegy Ellipta 100 inh INHALATION DAILY AM 04/15/21 05/20/21 albuterol sulfate 2.5 mg INHALATION BID 04/15/21 05/20/21 lisinopril 5 mg PO DAILY AM 04/15/21 05/20/21 nebulizer and compressor [Comp-Air 04/15/21 05/20/21 Nebulizer Compressor] prednisone 60 mg PO DAILY 4 Days #12 tab 06/05/21 Previous Rx's Medication Instructions Recorded albuterol sulfate [Ventolin HFA] 1 puff INHALATION DAILY PRN #8.5 gm 02/01/20 prednisone 60 mg PO DAILY 4 Days #12 tab 06/05/21 Allergies Allergy/AdvReac Type Severity Reaction Status Date / Time aspirin Allergy Intermediate Skin Rash Unverified 05/20/21 21:21 crab Allergy Anaphylaxsi Unverified 05/20/21 21:21 s hydrocodone [Hydrocodone] AdvReac Severe dizzy and Unverified 05/20/21 21:21 nausea lobster Allergy Anaphylaxsi Uncoded 05/20/21 21:21 s General Stated Complaint: SOB BRAEDEN: 3 Review of Systems <Alan Ayers NP - Last Filed: 06/07/21 09:37> Constitutional Constitutional: Denies fever(s) Cardiovascular Cardiovascular: Denies chest pain with activity, Denies syncope, Denies irregular heart rhythm, Denies palpitations and Reports dyspnea Respiratory Respiratory: Denies cough, Denies hemoptysis, Denies pain on inspiration and Reports dyspnea Gastrointestinal Gastrointestinal: Denies abdominal pain, Denies nausea and Denies vomiting Neurologic Neurologic: Denies syncope Psychiatric Psychiatric: Denies anxiety Endocrine Endocrine: Denies palpitations PFS <Alan Ayers NP - Last Filed: 06/07/21 09:37> All Active Problems (Updated 06/06/21 @ 00:53 by Jadon Conley MD) Epicondylitis, lateral, left (Acute) Shortness of breath (Acute) COPD exacerbation (Acute) COVID (Acute) Right lateral epicondylitis (Acute) Medical History (Updated 06/06/21 @ 00:53 by Jadon Conley MD) COPD (chronic obstructive pulmonary disease) Obstructive sleep apnea Surgical History History of appendectomy Social History Smoking/Tobacco Use Status: Current every day Tobacco Type: cigarettes Smoking risk assessment performed?: Yes Alcohol Intake: never Drug use: Never Substance use type: does not use Do you feel safe at home: Yes Do you feel safe in your relationship?: Yes Exam <Alan Ayers NP - Last Filed: 06/07/21 09:37> Const General: cooperative, comfortable, acute distress mild, moderate and re spiratory, not diaphoretic and not ill appearing Orientation: alert, awake and oriented x3 Limitations: mental status not altered Neck Neck: normal visual inspection, full ROM, trachea midline, supple and no anterior neck swelling Carotids: normal carotid upstroke and no bruits Chest Chest: abnormal inspection of the chest barrel chest Resp Effort & Inspection: normal respiratory effort and able to speak in complete sentences Auscultation: clear to auscultation bilaterally Cardio Rate: regular rate Rhythm: regular rhythm Heart Sounds: S1 normal, S2 normal, no click, no gallops, no murmurs and no rubs Pulses: radial pulses present bilaterally 2+ Skin General skin exam: no rashes or lesions noted Neuro General: patient alert, patient awake, patient oriented x3, tone normal and moves all extremities Extrem General: capillary refill normal and no pedal edema Course <Alan Ayers NP - Last Filed: 06/07/21 09:37> Vital Signs Vital signs: Vital Signs Temperature 36.4 C L 06/05/21 21:53 Pulse 81 06/05/21 21:53 Respiratory Rate 30 H 06/05/21 21:53 Blood Pressure 191/101 H 06/05/21 21:53 Pulse Oximetry 88 L 06/05/21 21:53 Temperature 36.4 C L 06/05/21 21:53 Temperature Source Temporal Artery Scan 06/05/21 21:53 Pulse 79 06/05/21 22:16 Pulse 83 06/05/21 22:20 Respiratory Rate 17 06/05/21 22:20 Respiratory Effort Labored 06/05/21 21:58 Respiratory Depth Shallow 06/05/21 21:58 Respiratory Pattern Tachypnea 06/05/21 21:58 Blood Pressure 146/87 H 06/05/21 22:16 Blood Pressure Mean 99 06/05/21 22:16 Blood Pressure Position Supine 06/05/21 21:53 Pulse Oximetry 100 06/05/21 22:20 Oxygen Delivery Method Room Air 06/05/21 21:53 Oxygen Flow Rate 0 06/05/21 21:53 Pain Level 0 06/05/21 21:53 Lab/Test Results Lab/Test Results: Laboratory Tests Range/Units 06/05/21 22:10 COVID-19 Source Nasal/Nares Sign Out <Alan Ayers NP - Last Filed: 06/07/21 09:37> Sign Out Data: Sign Out Comment: Patient pending delta troponin. If negative plan of care includes 5-day steroid burst of prednisone, follow-up with primary care, and return precautions for diagnosis of COPD with acute exacerbation. Last updated by Alan Ayers NP at 06/05/21 23:13
[2021-06-05] MEDS: Normal Saline 500 ML IV (22:32)
[2021-06-05 22:35] LABS: BE (Venous) 1 mmol/L (-2-3); HCO3 (Venous) 27 mmol/L (23-28); O2 Sat (Venous) 78 %; TCO2 (Venous) 25 mmol/L (24-29); pCO2 (Venous) 50 mmHg (41-51); pH (Venous) 7.34 (7.31-7.41); pO2 (Venous) 43 mmHg
[2021-06-05 22:37] LABS: Abs Immature Grans 0.04 10^3/uL (0.0-0.06); Absolute Basophil Count 0.03 10^3/uL (0.0-0.2); Absolute Eosinophil Count 0.16 10^3/uL (0.0-0.7); Absolute Lymphocyte Count 2.45 10^3/uL (1.2-3.4); Absolute Monocyte Count 0.85 10^3/uL (0.1-0.8); Absolute Neutrophil Count 6.46 10^3/uL (1.2-6.7); Basophils % 0.3; Eosinophils % 1.6; HCT 35.7 % (40.0-50.0); HGB 12.3 g/dL (13.5-17.5); Immature Grans % 0.4; Lymphocytes % 24.5; MCH 32.9 pg (27.0-33.0); MCHC 34.5 % (32.0-36.0); MCV 95.5 fL (80-95); MPV 8.8 fL (8.0-11.0); Monocytes % 8.5; Neutrophils % 64.7; Nucleated RBC 0 %; Platelet Count 261 10^3/uL (130-400); RBC 3.74 10^6/uL (4.36-5.78); RDW 13.6 % (11.8-14.1); RDW-SD 47.8 fL; WBC 9.99 10^3/uL (4.4-10.8)
[2021-06-05 22:51] LABS: COVID-19 PCR Negative (Negative)
[2021-06-05 22:58] LABS: ALT 28 U/L (16-63); AST 15 U/L (15-37); Albumin 3.7 g/dL (3.4-5.0); Alkaline Phosphatase 101 U/L (46-116); Anion Gap 8.6 mmol/L (3-11); BUN 23 mg/dL (7-18); Bilirubin, Total 0.5 mg/dL (0.2-1.0); CO2 27.4 mmol/L (21.0-32.0); CREATININE 1.3 mg/dL (0.70-1.30); Calcium 8.7 mg/dL (8.5-10.1); Chloride 103 mmol/L (98-107); Estimated GFR 55.94 (mL/min/1.73m2); Glucose 136 mg/dL (74-106); Magnesium 1.9 mg/dL (1.8-2.4); NT-proBNP 50 pg/mL (<300); Potassium 4.2 mmol/L (3.5-5.1); Sodium 139 mmol/L (136-145); Total Protein 7.4 g/dL (6.4-8.2); Troponin I < 50 ng/L (<or=60)
--- NOTE | 2021-06-05 23:11 | DI.VRAD_ITS ---
PROCEDURE INFORMATION: Exam: XR Chest Exam date and time: 06/05/2021 10:00 PM Age: 60 years old Clinical indication: Shortness of breath TECHNIQUE: Imaging protocol: XR of the chest. Views: 1 view. COMPARISON: CR XR PORTABLE CHEST AP 05/20/2021 9:42 PM FINDINGS: There is hyperinflation. No infiltrates are present. There is no pleural effusion or pneumothorax. The heart size is normal. IMPRESSION: No active disease. Dictated and Authenticated by: Blane Ball MD. Ordering:CHUY Phillips MD
[2021-06-06] VITALS (10 sets, daily range): BP systolic 104–124; BP diastolic 71–77; PULSE 66–80; RESP 8–12; O2SAT 95–97
[2021-06-06 00:47] LABS: Troponin I < 50 ng/L (<or=60)
== END 2021-06-06 01:09 | disposition home or self-care (01) ==
PROVIDERS: Nurse Practitioner Family; Emergency Provider Emergency Medicine; PCP Nurse Practitioner Family
DX: J44.1 Chronic obstructive pulmonary disease with (acute) exacerbation (principal); R06.02 Shortness of breath; F17.210 Nicotine dependence, cigarettes, uncomplicated
CPT/HCPCS: 36415; 80053; 82805; 87635; 93005; 96361; 96374; 99284; 71045; 83735; 83880; 84484; 85025; 93010; J2930; J7620

== ENCOUNTER 2022-01-29 18:00 | Emergency (ER) | payer MEDICARE, MEDICAID, SELFPAY ==
[2022-01-29 18:02] VITALS: BP 172/90; PULSE 68; RESP 16; TEMP 36.4; O2SAT 97
--- NOTE | 2022-01-29 18:15 | DI.RAD_ITS ---
Exam(s) XR SHOULDER RT COMPLETE 2+V EXAM: XR SHOULDER RT COMPLETE 2+V CLINICAL HISTORY: trauma lateral pain. TECHNIQUE: 2D digital imaging was performed of the right shoulder. Four images were obtained. AP, Grashey, and Y-view views were obtained. COMPARISON: No exams were available for comparison FINDINGS: BONES: There is again seen an acute comminuted fracture involving the middle 3rd of the right clavicl e. The apex of the fracture is directed cephalad. No other fracture is identified. No bony destruc tive lesion is seen. JOINTS: No dislocation present. [id number] degenerative changes are seen at the acromioclavicul ar joint. SOFT TISSUE: Normal. IMPRESSION: Acute comminuted fracture involving the middle 3rd of the right clavicle as described above. DATA REPOSITORY: RADIATION DOSE DELIVERED:
--- NOTE | 2022-01-29 18:15 | DI.RAD_ITS ---
Exam(s) XR CLAVICLE RT EXAM: XR CLAVICLE RT CLINICAL HISTORY: trauma mid shaft pain TECHNIQUE: 2D digital imaging was performed of the right clavicle. Two images were obtained. AP and axial views were obtained. COMPARISON: No exams were available for comparison FINDINGS: BONES: There is an acute comminuted fracture involving the middle 3rd of the right clavicle. The ape x of the fracture is directed cephalad. There is overriding of the fracture fragments noted. No bon y destructive lesion is seen. JOINTS: No dislocation present. [id number] degenerative changes of the acromioclavicular joint. Degenerative changes are seen in the visualized cervical spine. SOFT TISSUE: Normal IMPRESSION: Acute comminuted fracture involving the middle 3rd of the right clavicle. DATA REPOSITORY: RADIATION DOSE DELIVERED:
[2022-01-29 18:25] VITALS: BP 132/84; PULSE 66; RESP 14
[2022-01-29 18:26] VITALS: PULSE 65; RESP 10
[2022-01-29 18:30] VITALS: PULSE 65; RESP 7
[2022-01-29 18:31] VITALS: BP 143/70; PULSE 62; PULSE 65; RESP 11
[2022-01-29] MEDS: HYDROmorphone 2 MG/ML SYR 0.5 MG IVP (18:38)
[2022-01-29] MEDS: Ondansetron 4 MG/2 ML VIAL IVP (18:38)
--- NOTE | 2022-01-29 19:45 | DI.VRAD_ITS ---
PROCEDURE INFORMATION: Exam: XR Right Shoulder Exam date and time: 01/29/2022 6:57 PM Age: 61 years old Clinical indication: Injury or trauma; Fall; Fracture, traumatic injury; Closed fracture; Clavicle; Right TECHNIQUE: Imaging protocol: Radiologic exam of the Right shoulder. Views: 2 or more views. COMPARISON: CR XR CLAVICLE RT 01/29/2022 6:55 PM FINDINGS: Bones/joints: Degenerative changes of the right acromioclavicular joint, manifest by mild joint space narrowing minimal osteophyte formation. Acute, displaced segmental fracture of the right mid-distal clavicle. Soft tissues: Normal. IMPRESSION: Acute, displaced segmental fracture of the right mid-distal clavicle. Dictated and Authenticated by: Vasu Lopez MD. Ordering:CHUY Phillips MD
--- NOTE | 2022-01-29 19:48 | DI.VRAD_ITS ---
PROCEDURE INFORMATION: Exam: XR Right Clavicle, Complete Exam date and time: 01/29/2022 6:55 PM Age: 61 years old Clinical indication: Injury or trauma; Fall; Fracture, traumatic injury; Closed fracture; Clavicle; Right TECHNIQUE: Imaging protocol: Radiologic exam of the Right clavicle. Complete exam. Views: Any number of views. COMPARISON: CR XR PORTABLE CHEST AP 06/05/2021 10:27 PM FINDINGS: Bones/joints: Acute, displaced segmental fracture or fracture with butterfly fragment of the right mid-distal clavicle. Degenerative changes of the right acromioclavicular joint, manifest by joint space narrowing minimal osteophyte formation. No dislocation. Multilevel cervicothoracic degenerative disc space narrowing and osteophyte formation. Vasculature: Atherosclerotic vascular disease. Soft tissues: Normal. IMPRESSION: Acute, displaced segmental fracture or fracture with butterfly fragment of the right mid-distal clavicle. Dictated and Authenticated by: Vasu Lopez MD. Ordering:CHUY Phillips MD
--- NOTE | 2022-01-29 20:30 | W.ED.GENAD ---
Discharge Plan Disposition Patient Disposition: HOME Condition: Stable Discharge Details Clinical Impression: Closed fracture of right clavicle Primary Care Provider: Milagro Sanchez ED Provider: Alan Ayers Home Meds and New Rx's Prescriptions: Continued nortriptyline 25 MG capsule 50 mg PO HS acetaminophen 500 mg Tablet 1,000 mg PO PRN PRN lisinopril 5 mg tablet 5 mg PO DAILY AM Label Comments: TAKE ONE TABLET BY MOUTH EVERY DAY Trelegy Ellipta 100-62.5-25 mcg blister with device 100 inh INHALATION DAILY AM Label Comments: INHALE ONE PUFF BY MOUTH EVERY DAY albuterol sulfate 2.5 mg /3 mL (0.083 %) solution for nebulization 2.5 mg inhalation BID Label Comments: INHALE THE CONTENTS OF 1 VIAL VIA NEBULIZER EVERY 4 TO 6 HOURS NEEDED (DME) nebulizer and compressor [Comp-Air Nebulizer Compressor] Device MISCELLANEOUS Label Comments: USE 1 DEVICE DIRECTED EVERY 4 HOURS WHILE AWAKE NEEDED propranolol 80 mg tablet 80 mg PO BID albuterol sulfate [Ventolin HFA] 90 mcg/actuation HFA aerosol inhaler 1 puff INHALATION DAILY PRNQty: 8.5 0RF Discharge Instructions Instructions: Clavicle Fracture (ED) Additional Instructions: Please continue to take [id number] pain medication as needed for discomfort and use sling also for comfort. You will need to follow-up with orthopedist for reassessment and discussion of any further treatment as needed. You have been prescribed a limited amount of narcotics please take only for severe pain and as directed. If you develop any new or significant worsening of symptoms feel free to return to the emergency department for reassessment. Referrals: [facility] [Provider Group] (Please call the clinic later tomorrow afternoon for arrangement of your follow-up appointment) Medical Decision Making Patient presenting to the emergency department for chief complaint of fall after tripping due to the dog pulling him while walking on leash. Patient landed hard on his right shoulder and endorses significant amount of right shoulder pain. Patient denies any other injury or trauma. Physical exam shows a deformity to the right midshaft clavicle, no skin tenting, puckering, or orange peel with movement of skin which skin is mobile over site of injury. Patient has tenderness to this area along with distal clavicle tenderness and tenderness to the anterior and lateral aspects of the shoulder. Exam is otherwise unremarkable. We will treat patient's pain and perform radiological imaging. Radiological imaging shows a acute right midshaft clavicle fracture otherwise is negative. Discussed risk versus benefit with patient of limited supply of narcotics along with use of sling and [id number] pain medication pending follow-up with orthopedist. Patient placed upon follow-up list and was instructed to call the Ortho office for arrangement of his follow-up appointment. After discussion of diagnosis and plan of care patient has no further needs, questions, or concerns and states clear understanding to return to the emergency department for any worsening symptoms. This documentation was generated using [employer] system, please disregard any oddities of phrase or misspellings. Imaging Data Radiologic Study: Attestation: I personally reviewed and interpreted this imaging study as follows: Imaging: X-Ray Radiologist's impression: FINDINGS: Bones/joints: Acute, displaced segmental fracture or fracture with butterfly fragment of the right mid-distal clavicle. Degenerative changes of the right acromioclavicular joint, manifest by joint space narrowing minimal osteophyte formation. No dislocation. Multilevel cervicothoracic degenerative disc space narrowing and osteophyte formation. Vasculature: Atherosclerotic vascular disease. Soft tissues: Normal. IMPRESSION: Acute, displaced segmental fracture or fracture with butterfly fragment of the right mid-distal clavicle. FINDINGS: Bones/joints: Degenerative changes of the right acromioclavicular joint, manifest by mild joint space narrowing minimal osteophyte formation. Acute, displaced segmental fracture of the right mid-distal clavicle. Soft tissues: Normal. IMPRESSION: Acute, displaced segmental fracture of the right mid-distal clavicle. HPI General Mode of arrival: EMS. Date/Time Provider Initiated Documentation: 01/29/22 18:05. Limitations to Documentation: no limitations. Information obtained by: RN notes reviewed. History of Present Illness 61 year old M presents to the emergency department with the chief complaint of Fall with injury to right shoulder, described as severe, with intensity rated at 9. Quality is described as sharp, and is localized to the right and upper extremity. Patient reports no radiation. Patient started experiencing this minute(s) (30) and it has been constant. No relieving factors improve symptom(s), No exacerbating factors reported . Patient notes no other symptoms.. Patient did receive the following treatments prior to arrival, other (Ketamine per EMS protocol) Related Data Home Medications Medication Instructions Recorded Confirmed nortriptyline 25 mg capsule 50 mg PO HS 07/16/14 01/29/22 acetaminophen 500 mg tablet 1,000 mg PO PRN PRN 03/07/18 01/29/22 albuterol sulfate 90 mcg/actuation 1 puff inhalation DAILY PRN #8.5 02/01/20 01/29/22 aerosol inhaler (Ventolin HFA) grams propranolol 80 mg tablet 80 mg PO BID 02/01/20 01/29/22 albuterol sulfate 2.5 mg/3 mL 2.5 mg inhalation BID 04/15/21 01/29/22 (0.083 %) solution for nebulization fluticasone fur. 100 mcg-umeclid 100 inh inhalation DAILY AM 04/15/21 01/29/22 62.5 mcg-vilant 25 mcg inhalat.powder (Trelegy Ellipta) lisinopril 5 mg tablet 5 mg PO DAILY AM 04/15/21 01/29/22 nebulizer and compressor (Comp-Air 04/15/21 05/20/21 Nebulizer Compressor) Previous Rx's Medication Instructions Recorded albuterol sulfate 90 mcg/actuation 1 puff inhalation DAILY PRN #8.5 02/01/20 aerosol inhaler (Ventolin HFA) grams Allergies Allergy/AdvReac Type Severity Reaction Status Date / Time aspirin Allergy Intermediate Skin Rash Unverified 01/29/22 18:06 crab Allergy Anaphylaxsi Unverified 01/29/22 18:06 s hydrocodone [Hydrocodone] AdvReac Severe dizzy and Unverified 01/29/22 18:06 nausea lobster Allergy Anaphylaxsi Uncoded 01/29/22 18:06 s General Stated Complaint: Orthopedic BRAEDEN: 3 Review of Systems Narrative: 8 systems reviewed and unremarkable except what is marked below. Constitutional Constitutional: Denies headache(s) ENT Ears, Nose, Mouth, and Throat: Denies headache(s) Cardiovascular Cardiovascular: Denies chest pain, Denies syncope and Denies dyspnea Respiratory Respiratory: Denies dyspnea Musculoskeletal Musculoskeletal: Reports as per HPI, Reports deformity, Reports arthralgias and Reports limited range of motion Integumentary/Breasts Skin/Breast: Denies unusual bruising and Denies wounds Neurologic Neurologic: Denies syncope, Denies headache(s) and Denies paresthesias PFSH All Active Problems Epicondylitis, lateral, left (Acute) Shortness of breath (Acute) COPD exacerbation (Acute) COVID (Acute) Closed fracture of right clavicle (Acute) Right lateral epicondylitis (Acute) Medical History COPD (chronic obstructive pulmonary disease) Obstructive sleep apnea Surgical History History of appendectomy Social History Smoking/Tobacco Use Status: Current every day Tobacco Type: cigarettes Smoking risk assessment performed?: Yes Alcohol Intake: never Drug use: Never Substance use type: does not use Do you feel safe at home: Yes Do you feel safe in your relationship?: Yes Exam Const General: cooperative Orientation: alert, awake and oriented x3 Chest Chest: normal inspection of the chest, normal palpation of entire chest wall and no localized rib tenderness Resp Effort & Inspection: normal respiratory effort, able to speak in complete sentences and no respiratory distress Auscultation: clear to auscultation bilaterally Cardio Rate: regular rate Rhythm: regular rhythm Heart Sounds: S1 normal and S2 normal Skin General skin exam: no rashes or lesions noted Neuro General: patient alert, patient awake, patient oriented x3, moves all extremities and no focal motor deficits Sensory Exam: no sensory deficits noted Extrem Right upper extremity: shoulder/upper arm Details: tenderness Location: of the clavicle Laterality: mid-shaft and laterally, axillary nerve sensory function normal and abnormal ROM Details: held in an abnormal fashion Details: in ADduction, in flexion and in internal rotation Course Vital Signs Vital signs: Vital Signs Temperature 36.4 C L 01/29/22 18:02 Pulse 68 01/29/22 18:02 Respiratory Rate 16 01/29/22 18:02 Blood Pressure 172/90 H 01/29/22 18:02 Pulse Oximetry 97 01/29/22 18:02 Temperature 36.4 C L 01/29/22 18:02 Temperature Source Temporal Artery Scan 01/29/22 18:02 Pulse 62 01/29/22 18:31 Pulse 65 01/29/22 18:31 Respiratory Rate 11 L 01/29/22 18:31 Respiratory Effort Non-Labored 01/29/22 18:08 Blood Pressure 143/70 H 01/29/22 18:31 Blood Pressure Mean 87 01/29/22 18:31 Blood Pressure Position Supine 01/29/22 18:02 Pulse Oximetry 97 01/29/22 18:02 Oxygen Delivery Method Room Air 01/29/22 18:02 Oxygen Flow Rate 0 01/29/22 18:02 Pain Level 12 01/29/22 18:08
[2022-01-29] MEDS: Ondansetron O.D.T. 4 MG TABEF, 3 TABS/BTL PO (20:50)
[2022-01-29 20:52] VITALS: BP 131/77; PULSE 76; RESP 18; O2SAT 96
== END 2022-01-29 20:48 | disposition home or self-care (01) ==
PROVIDERS: Emergency Provider Nurse Practitioner Family; PCP Nurse Practitioner Family
DX: S42.001A Fracture of unspecified part of right clavicle, initial encounter for closed fracture (principal); W01.0XXA Fall on same level from slipping, tripping and stumbling without subsequent striking against object, initial encounter; Y93.01 Activity, walking, marching and hiking; J44.9 Chronic obstructive pulmonary disease, unspecified; F17.210 Nicotine dependence, cigarettes, uncomplicated
CPT/HCPCS: 96374; 96375; 99284; 73000; 73030; J1170; J2405

== ENCOUNTER 2022-02-01 10:39 | Emergency (ER) | payer MEDICARE, MEDICAID, SELFPAY ==
[2022-02-01 10:50] VITALS: BP 113/71; PULSE 63; RESP 17; TEMP 36.6; O2SAT 99
--- NOTE | 2022-02-01 11:15 | DI.RAD_ITS ---
Exam(s) XR RIBS RT W PA LAT CHEST EXAM: XR RIBS RT W PA LAT CHEST CLINICAL HISTORY: R lower posterior rib pain s/p coughing, r/o fx TECHNIQUE: 2D digital imaging was performed. Images were obtained. COMPARISON: CR,XR XR PORTABLE CHEST AP from 06/05/2021 FINDINGS: MEDIASTINUM: Normal. HEART: Normal. PULMONARY VASCULATURE: Normal. LUNGS: Clear. PLEURAL SPACE: No pleural effusion or pneumothorax. BONE:The comminuted fracture of the midshaft of the right clavicle is again noted and discussed on e x-ray of the shoulder and clavicle. RIGHT RIBS: Normal. OTHER FINDINGS:Normal. IMPRESSION: 1. No acute pulmonary findings. 2. Again is noted a comminuted fracture of the mid right clavicle. 3. Unremarkable right ribs. DATA REPOSITORY: RADIATION DOSE DELIVERED:
--- NOTE | 2022-02-01 11:17 | ED.GENADUL_ITS ---
Discharge Plan Disposition Patient Disposition: HOME Condition: Stable Discharge Details Clinical Impression: Strain of thoracic back region Primary Care Provider: Milagro Sanchez ED Provider: Abbie aHines Home Meds and New Rx's Prescriptions: New methocarbamol 500 mg tablet 500 mg PO Q6H PRN (Reason: muscle spasm) Qty: 14 0RF oxycodone 5 mg tablet 5 mg PO Q6H PRN (Reason: pain) Qty: 10 0RF Continued nortriptyline 25 MG capsule 50 mg PO HS acetaminophen 500 mg Tablet 1,000 mg PO PRN PRN lisinopril 5 mg tablet 5 mg PO DAILY AM Label Comments: TAKE ONE TABLET BY MOUTH EVERY DAY albuterol sulfate 2.5 mg /3 mL (0.083 %) solution for nebulization 2.5 mg inhalation BID Label Comments: INHALE THE CONTENTS OF 1 VIAL VIA NEBULIZER EVERY 4 TO 6 HOURS NEEDED (DME) nebulizer and compressor [Comp-Air Nebulizer Compressor] Device MISCELLANEOUS Label Comments: USE 1 DEVICE DIRECTED EVERY 4 HOURS WHILE AWAKE NEEDED Breztri Aerosphere 160-9-4.8 mcg/actuation HFA aerosol inhaler 2 inh INHALATION BID Label Comments: INHALE TWO PUFFS BY MOUTH TWICE A DAY propranolol 80 mg tablet 80 mg PO BID albuterol sulfate [Ventolin HFA] 90 mcg/actuation HFA aerosol inhaler 1 puff INHALATION DAILY PRNQty: 8.5 0RF Discharge Instructions Instructions: Thoracic Back Strain (ED) Additional Instructions: Your imaging today is reassuring and shows no evidence of acute concerning or significant findings. Your symptoms may be due to a muscle strain. Drink plenty of fluids and get plenty of rest. Alternate tylenol and motrin as needed and directed for pain. Take the oxycodone and methocarbamol as needed and directed for pain not relieved with Tylenol and Motrin. Return immediately to the emergency department if you develop any worsening or new concerning symptoms worsening pain, difficulty breathing, difficulty ambulating or any other concerns. Discharge Data Discharge Date/Time-TO BE ENTERED AT DEPARTURE: 02/01/22 13:14 Discharge Physician: Abbie Haines Medical Decision Making 61-year-old male with a history of COPD and obstructive sleep apnea with a chronic cough 3 days status post a right clavicle fracture after mechanical fall presents with right mid to lower back pain after coughing this morning. Denies cauda equina symptoms, chest pain, difficulty breathing, vomiting or abdominal pain. He has a localized area of tenderness to the right posterior lateral mid to lower back. There is no evidence of trauma or cellulitis. His lungs are clear bilaterally. Differential diagnosis includes muscle strain, rib fracture. There is no midline lumbar spine tenderness so presentation does not appear consistent with a lumbar compression fracture. History and presentation also does not appear consistent with cauda equina syndrome, pneumonia, kidney stone. Will refer for right rib x-ray and give a dose of oxycodone and Lidoderm patch. Xray reviewed and negative. Discussed with patient that his symptoms may be secondary to a thoracic back strain. Advised to alternate ice and heat, apply lidoderm patches as needed and directed. He endorses he is still having significant pain at site of right clavicle fracture. Will send prescriptions for oxycodone and methocarbamol electronically to his pharmacy. Advised to follow up with the primary care doctor for re-evaluation. Usual and customary return precautions given prior to discharge. Medical Records Medical records reviewed: Yes I reviewed the patient's medical records. Imaging Data Radiologic Study: Radiologist's impression: XR RIBS RT W PA ? LAT CHEST CLINICAL HISTORY:? R lower posterior rib pain s/p coughing, r/o fx TECHNIQUE:? 2D digital imaging was performed.? Images were obtained. COMPARISON:? CR,XR XR PORTABLE CHEST AP from 06/05/2021 FINDINGS: MEDIASTINUM: Normal.? HEART: Normal. PULMONARY VASCULATURE: Normal. LUNGS: Clear. ? PLEURAL SPACE: No pleural effusion or pneumothorax. BONE:The comminuted fracture of the midshaft of the right clavicle is again noted and discussed on the x-ray of the shoulder and clavicle.? RIGHT RIBS: Normal. OTHER FINDINGS:Normal.? IMPRESSION: 1. No acute pulmonary findings. 2. Again is noted a comminuted fracture of the mid right clavicle. 3. Unremarkable right ribs. HPI General Mode of arrival: ambulatory . Date/Time Provider Initiated Documentation: 02/01/22 10:41 . Limitations to Documentation: no limitations . Information obtained by: patient . HPI Narrative: Patient is a 61-year-old male diagnosed with a right clavicle fracture after mechanical fall 3 days ago presents with right mid and lower back pain after coughing this morning. Patient is wearing a sling for his right clavicle fracture and states he coughed today and felt sudden onset of right mid and lower back pain. Patient states he has a chronic cough secondary to his COPD and states his cough is no worse than usual. He denies any fever, difficulty breathing or chest pain. He states he was given oxycodone for clavicle fracture but is already finished this and denies any relief. He denies bowel or bladder incontinence, extremity weakness or numbness, saddle anesthesia. Related Data Home Medications Medication Instructions Recorded Confirmed nortriptyline 25 mg capsule 50 mg PO HS 07/16/14 02/01/22 acetaminophen 500 mg tablet 1,000 mg PO PRN PRN 03/07/18 02/01/22 albuterol sulfate 90 mcg/actuation 1 puff inhalation DAILY PRN #8.5 02/01/20 02/01/22 aerosol inhaler (Ventolin HFA) grams propranolol 80 mg tablet 80 mg PO BID 02/01/20 02/01/22 albuterol sulfate 2.5 mg/3 mL 2.5 mg inhalation BID 04/15/21 02/01/22 (0.083 %) solution for nebulization lisinopril 5 mg tablet 5 mg PO DAILY AM 04/15/21 02/01/22 nebulizer and compressor (Comp-Air 04/15/21 05/20/21 Nebulizer Compressor) budesonide 160 mcg-glycopyr 9 2 inh inhalation BID 02/01/22 02/01/22 mcg-formot 4.8 mcg/actuation HFA inhaler (Breztri Resale Therapyphere) methocarbamol 500 mg tablet 500 mg PO Q6H PRN muscle spasm #14 02/01/22 tabs oxycodone 5 mg tablet 5 mg PO Q6H PRN pain #10 tabs 02/01/22 Previous Rx's Medication Instructions Recorded albuterol sulfate 90 mcg/actuation 1 puff inhalation DAILY PRN #8.5 02/01/20 aerosol inhaler (Ventolin HFA) grams methocarbamol 500 mg tablet 500 mg PO Q6H PRN muscle spasm #14 02/01/22 tabs oxycodone 5 mg tablet 5 mg PO Q6H PRN pain #10 tabs 02/01/22 Allergies Allergy/AdvReac Type Severity Reaction Status Date / Time aspirin Allergy Intermediate Skin Rash Unverified 02/01/22 10:55 crab Allergy Anaphylaxsi Unverified 02/01/22 10:55 s hydrocodone [Hydrocodone] AdvReac Severe dizzy and Unverified 02/01/22 10:55 nausea lobster Allergy Anaphylaxsi Uncoded 02/01/22 10:55 s General Stated Complaint: Nk/Back Pain BRAEDEN: 3 Review of Systems All systems reviewed & are unremarkable except as noted in HPI and below Constitutional Constitutional: Reports as per HPI, Denies chills and Denies fever(s) Eyes Eyes: Denies blurry vision ENT Ears, Nose, Mouth, and Throat: Denies dizziness, Denies sore throat and Denies throat swelling Cardiovascular Cardiovascular: Denies chest pain and Denies dyspnea Respiratory Respiratory: Denies cough and Denies dyspnea Gastrointestinal Gastrointestinal: Denies abdominal pain, Denies diarrhea and Denies vomiting Genitourinary Genitourinary: Denies hematuria and Denies dysuria Musculoskeletal Musculoskeletal: Reports back pain and Denies numbness Integumentary/Breasts Skin/Breast: Denies lesions and Denies rash Neurologic Neurologic: Denies dizziness, Denies localized weakness and Denies numbness Allergic/Immunologic Allergic/Immunologic: Denies throat swelling PFSH All Active Problems (Updated 02/01/22 @ 12:27 by Abbie Haines DO) Epicondylitis, lateral, left (Acute) Shortness of breath (Acute) COPD exacerbation (Acute) COVID (Acute) Closed fracture of right clavicle (Acute) Strain of thoracic back region (Acute) Right lateral epicondylitis (Acute) Medical History (Updated 02/01/22 @ 12:27 by Abbie Haines DO) COPD (chronic obstructive pulmonary disease) Obstructive sleep apnea Surgical History History of appendectomy Social History Smoking/Tobacco Use Status: Current every day Tobacco Type: cigarettes Smoking risk assessment performed?: Yes Alcohol Intake: never Drug use: Never Substance use type: does not use Do you feel safe at home: Yes Do you feel safe in your relationship?: Yes Exam Const General: cooperative Orientation: alert, awake and oriented x3 Resp Effort & Inspection: normal respiratory effort Auscultation: clear to auscultation bilaterally Cardio Rate: regular rate Rhythm: regular rhythm GI Inspection: normal to inspection Palpation: soft, not firm, no guarding, not rigid and nontender Back/Spine/Pelvis Back/spine/pelvis image: 1. Localized area of tenderness to the right lateral and posterior mid back. There is no crepitus, erythema, edema, ecchymosis, rash or lesions. Pain is also reproducible with movement. Extrem Other: R arm in sling. R radial pulse intact. Normal ROM b/l lower extremities. Course Vital Signs Vital signs: Vital Signs Temperature 98 F 02/01/22 10:50 Pulse 63 02/01/22 10:50 Respiratory Rate 17 02/01/22 10:50 Blood Pressure 113/71 02/01/22 10:50 Pulse Oximetry 99 02/01/22 10:50 Temperature 98 F 02/01/22 10:50 Temperature Source Oral 02/01/22 10:50 Pulse 63 02/01/22 10:50 Respiratory Rate 17 02/01/22 10:50 Respiratory Effort 02/01/22 11:07 Blood Pressure 113/71 02/01/22 10:50 Blood Pressure Position Sitting 02/01/22 10:50 Pulse Oximetry 99 02/01/22 10:50 Oxygen Delivery Method Room Air 02/01/22 10:50 Oxygen Flow Rate 0 02/01/22 10:50 Pain Level 10 02/01/22 10:50
[2022-02-01] MEDS: oxyCODONE 10 MG TAB PO (12:34)
[2022-02-01] MEDS: Lidocaine 5% Patch 1 PATCH TP (12:34)
== END 2022-02-01 13:14 | disposition home or self-care (01) ==
PROVIDERS: Emergency Provider Physician Assistant; PCP Nurse Practitioner Family
DX: S29.012A Strain of muscle and tendon of back wall of thorax, initial encounter (principal); J44.9 Chronic obstructive pulmonary disease, unspecified; F17.210 Nicotine dependence, cigarettes, uncomplicated; G89.11 Acute pain due to trauma; M54.50 Low back pain, unspecified; W19.XXXA Unspecified fall, initial encounter
CPT/HCPCS: 99284; 71046; 71100

== ENCOUNTER 2022-02-06 08:45 | Outpatient (CLI) | payer MEDICARE, MEDICAID, SELFPAY ==
--- NOTE | 2022-02-06 08:30 | DI.RAD_ITS ---
Exam(s) XR CLAVICLE RT EXAM: XR CLAVICLE RT INDICATION: F/U R CLAVICLE FX. COMPARISON: CR,XR XR CLAVICLE RT from 01/29/2022 TECHNIQUE: 2D digital imaging was performed. Two views. FINDINGS: Has been no change in the alignment of the comminuted clavicle fracture. Degenerative changes at the AC joint are again noted. DATA REPOSITORY: RADIATION DOSE DELIVERED:
== END 2022-02-06 08:46 | disposition home or self-care (01) ==
LOC: DIORS 08:45
PROVIDERS: PCP Nurse Practitioner Family; Referring Provider Nurse Practitioner Family; Visit Provider Physician Assistant
DX: S42.001A Fracture of unspecified part of right clavicle, initial encounter for closed fracture (principal); X58.XXXA Exposure to other specified factors, initial encounter; J44.9 Chronic obstructive pulmonary disease, unspecified; F17.210 Nicotine dependence, cigarettes, uncomplicated
CPT/HCPCS: 99214; 73000

== ENCOUNTER 2022-02-19 11:50 | Outpatient (CLI) | payer MEDICARE, MEDICAID, SELFPAY ==
--- NOTE | 2022-02-19 11:15 | DI.RAD_ITS ---
Exam(s) XR CLAVICLE RT LIMITED 1V EXAM: XR CLAVICLE RT LIMITED 1V INDICATION: f/u R clavicle frx. COMPARISON: CR XR CLAVICLE RT from 02/06/2022 TECHNIQUE: 2D digital imaging was performed. Two views. FINDINGS: There has been no change in the alignment of the comminuted mid clavicle fracture. No new abnormalit ies are seen. DATA REPOSITORY: RADIATION DOSE DELIVERED:
== END 2022-02-19 11:51 | disposition home or self-care (01) ==
LOC: DIORS 11:51
PROVIDERS: PCP Nurse Practitioner Family; Referring Provider Nurse Practitioner Family; Visit Provider Student in an Organized Health Care Education/Training Program
DX: S42.001A Fracture of unspecified part of right clavicle, initial encounter for closed fracture (principal); X58.XXXA Exposure to other specified factors, initial encounter
CPT/HCPCS: 99214; 73000

== ENCOUNTER → 2022-03-06 02:15 | Outpatient (CLI) | payer MEDICARE, MEDICAID, SELFPAY ==
--- NOTE | 2022-03-06 12:51 | DI.CTLCSR_ITS ---
Exam(s) CT CHEST LUNG CANCER SCREEN EXAM: CT CHEST LUNG CANCER SCREEN CLINICAL HISTORY: SMOKER F17.210 NODULE R91.8, SCREENING FOR LUNG CANCER TECHNIQUE: Imaging Protocol: Axial computed tomography images with coronal and sagittal reformatted images were created and reviewed COMPARISON: CT CT CHEST LUNG CANCER SCREEN from 01/24/[address] CHEST PE CTA from 04/15/2021 CR XR CLAVICLE RT LIMITED 1V from 02/19/2022 FINDINGS: Tracheobronchial tree: Patent where visualized. Pulmonary parenchyma: No consolidation or dominant measurable mass. Moderately severe centrilobular e mphysematous changes are present. Lung Nodules: The 4 mm triangular nodule in the lingula is unchanged. No new pulmonary nodules are p resent. Mediastinum and Carlota: No dominant adenopathy or fluid collection. The esophagus is unremarkable. Thyroid gland: Unremarkable. Lymph nodes: Unremarkable. Pleura: No effusion or pneumothorax. Heart: The heart is not dilated. Mild coronary artery calcification is present. No pericardial effus ion. Aorta: Thoracic aorta non-dilated.Atherosclerosis is present. Upper abdomen: Unremarkable. Soft Tissues: Mild gynecomastia. Bones: Within normal limits. There is again seen a healing comminuted right clavicular fracture. The re are multiple healing right rib fractures. IMPRESSION: 1. Stable left lingular nodule. 2. No new pulmonary nodules. 3. Healing right clavicular and right rib fractures. The right clavicular fracture appears stable co mpared to the recent x-rays from January 2022. Lung RADS Cat 2 - Benign Appearance / Behavior: Nodules with a very low likelihood of becoming a clin ically active cancer due to size or lack of growth Lung-RADS 1.0 CATEGORIES: Category 0 - Prior chest CT exam(s) being located for comparison. Category 1 - Annual screening in 12 months. No nodules or definitely benign nodules. Category 2 - Annual screening in 12 months. Benign appearance. Nodules with low likelihood of becomin g active cancer. Category 3 - 6-month follow-up. Probably benign. Short-term follow-up suggested. Nodules with low lik elihood of becoming active cancer. Category 4A - 3-month follow-up and CT/PET if >8 mm in size. Suspicious finding. Findings which requi re additional testing. Category 4B - Findings which require additional testing and tissue sampling. Suspicious finding. Category 4X - Category 3 or 4 nodules with additional features or imaging findings that increases the suspicion of malignancy. Modifier S- Potentially clinically significant finding. (Non lung cancer) RADIATION DOSE DELIVERED: 84mGy.cm Total DLP 1.84mGy CTDIvol 84mGy.cm Total DLP 1.84mGy CTDIvol DATA REPOSITORY: All CT scans at this facility are submitted to the National Radiology Data Registry (NRDR) Dose Index Registry (DIR) with the [employer] ([employer]). RADIATION OPTIMIZATION: All CT scans at this facility use at least one of these dose optimization te chniques: automated exposure control; mA and/or kV adjustment per patient size (includes targeted exa ms where dose is matched to clinical indication); or iterative reconstruction.
== END ==
PROVIDERS: PCP Nurse Practitioner Family; Visit Provider Nurse Practitioner Family
DX: F17.210 Nicotine dependence, cigarettes, uncomplicated (principal); Z12.2 Encounter for screening for malignant neoplasm of respiratory organs; R91.1 Solitary pulmonary nodule
CPT/HCPCS: 71271

== ENCOUNTER 2022-04-02 09:54 | Outpatient (CLI) | payer MEDICARE, MEDICAID, SELFPAY ==
--- NOTE | 2022-04-02 09:30 | DI.RAD_ITS ---
Exam(s) XR CLAVICLE RT LIMITED 1V EXAM: XR CLAVICLE RT LIMITED 1V CLINICAL HISTORY: F/U R CLAVICLE FRACTURE. TECHNIQUE: 2D digital imaging was performed. COMPARISON: CR XR CLAVICLE RT LIMITED 1V from 02/19/2022 FINDINGS: Single-view, as per request. The displaced comminuted fracture site at the midshaft of the right clavicle appears unchanged. No o bvious callus formation. AC joint not distracted. IMPRESSION: No radiographic change compared to 02/19/2022. No further displacement. DATA REPOSITORY: RADIATION DOSE DELIVERED:
== END 2022-04-02 09:55 | disposition home or self-care (01) ==
LOC: DIORS 09:55
PROVIDERS: PCP Nurse Practitioner Family; Referring Provider Nurse Practitioner Family; Visit Provider Student in an Organized Health Care Education/Training Program
DX: S42.001D Fracture of unspecified part of right clavicle, subsequent encounter for fracture with routine healing (principal); X58.XXXD Exposure to other specified factors, subsequent encounter
CPT/HCPCS: 99213; 73000

== ENCOUNTER 2022-07-12 20:59 | Emergency (ER) | payer MEDICARE, MEDICAID, SELFPAY ==
[2022-07-12] VITALS (13 sets, daily range): BP systolic 148; BP diastolic 84; PULSE 61–77; RESP 9–19; TEMP 36.6; O2SAT 93–100
--- NOTE | 2022-07-12 21:15 | RT.EKG_ITS ---
APPROVED REPORT Exam: Resting ECG Reason for Exam: epigastric pain Patient Location: E HR:69 bpm ECG Measurements Heart Rate 69 AXIS UT 175 P 80 QRSd 97 QRS 99 QT 390 T 72 QTc 420 Conclusion Sinus rhythm...normal P axis, V-rate 60- 99 Right axis deviation...QRS axis ( 91,269). Sinus. Normal axis. No STEMI. I have reviewed and interpreted ECG and agree with software generated interpretation.
--- NOTE | 2022-07-12 21:30 | DI.RAD_ITS ---
Exam(s) XR CHEST 2V PA LATERAL EXAM: XR CHEST 2V PA LATERAL CLINICAL HISTORY: EPIGASTRIC PAIN TECHNIQUE: 2D digital imaging was performed. COMPARISON: CT CT CHEST LUNG CANCER SCREEN from 03/06/2022 FINDINGS: HEART: Normal size. Aorta: Not dilated. PULMONARY VASCULATURE: Normal. LUNGS: Clear. Emphysematous changes, greater in the upper lobes. PLEURAL SPACE: No pleural effusion or pneumothorax. BONE:Unremarkable for age. IMPRESSION: No acute abnormality. DATA REPOSITORY: RADIATION DOSE DELIVERED:
[2022-07-12 22:01] LABS: Abs Immature Grans 0.02 10^3/uL (0.0-0.06); Absolute Basophil Count 0.02 10^3/uL (0.0-0.2); Absolute Eosinophil Count 0.22 10^3/uL (0.0-0.7); Absolute Lymphocyte Count 1.79 10^3/uL (1.2-3.4); Absolute Monocyte Count 0.84 10^3/uL (0.1-0.8); Absolute Neutrophil Count 4.11 10^3/uL (1.2-6.7); Basophils % 0.3; Eosinophils % 3.1; HCT 34.5 % (40.0-50.0); Immature Grans % 0.3; Lymphocytes % 25.6; MCH 32.7 pg (27.0-33.0); MCHC 34.8 % (32.0-36.0); MCV 94 fL (80-95); MPV 8.8 fL (8.0-11.0); Neutrophils % 58.7; Platelet Count 240 10^3/uL (130-400); RBC 3.67 10^6/uL (4.36-5.78); RDW-SD 44.7 fL
[2022-07-12 22:18] LABS: ALT 19 U/L (16-63); AST 12 U/L (15-37); Albumin 3.7 g/dL (3.4-5.0); Alkaline Phosphatase 84 U/L (46-116); Anion Gap 4.2 mmol/L (3-11); BUN 22 mg/dL (7-18); Bilirubin, Total 0.6 mg/dL (0.2-1.0); CO2 30.8 mmol/L (21.0-32.0); CREATININE 1.1 mg/dL (0.70-1.30); Calcium 8.8 mg/dL (8.5-10.1); Chloride 104 mmol/L (98-107); Estimated GFR 75.43 (mL/min/1.73m2); Glucose 109 mg/dL (74-106); Potassium 4.2 mmol/L (3.5-5.1); Sodium 139 mmol/L (136-145); Total Protein 6.8 g/dL (6.4-8.2); Troponin I < 50 ng/L (<or=60)
[2022-07-12] MEDS: Famotidine 20 MG/2 ML VIAL IVP (23:14)
--- NOTE | 2022-07-12 23:35 | ED.GENADUL_ITS ---
Discharge Plan Disposition Patient Disposition: Home Condition: Improving Discharge Details Clinical Impression: Abdominal wall strain, Epigastric abdominal pain Primary Care Provider: Milagro Sanchez ED Provider: Abbie Haines Home Meds and New Rx's Prescriptions: New sucralfate [Carafate] 1 gram tablet 1 g PO BID Qty: 20 0RF Continued nortriptyline 25 MG capsule 50 mg PO HS acetaminophen 500 mg Tablet 1,000 mg PO PRN PRN lisinopril 5 mg tablet 5 mg PO DAILY AM Patient Comments: TAKE ONE TABLET BY MOUTH EVERY DAY (DME) nebulizer and compressor [Comp-Air Nebulizer Compressor] Device MISCELLANEOUS Patient Comments: USE 1 DEVICE DIRECTED EVERY 4 HOURS WHILE AWAKE NEEDED Breztri Aerosphere 160-9-4.8 mcg/actuation HFA aerosol inhaler 2 inh INHALATION BID Patient Comments: INHALE TWO PUFFS BY MOUTH TWICE A DAY methocarbamol 500 mg tablet 500 mg PO Q6H PRN (Reason: muscle spasm) Qty: 14 0RF propranolol 80 mg tablet 80 mg PO BID albuterol sulfate [Ventolin HFA] 90 mcg/actuation HFA aerosol inhaler 1 puff INHALATION DAILY PRNQty: 8.5 0RF Discharge Instructions Instructions: Muscle Strain (ED), Abdominal Pain (ED), Epigastric Pain (ED) Additional Instructions: Your blood tests and imaging today are reassuring and show no evidence of acute concerning or significant findings. Your symptoms are suspected to be due to a muscle strain of your abdominal wall. Other possibilities include GERD or gastroesophageal reflux disease however this appears less likely as your symptoms are worse with movement and position. Take Tylenol as needed and directed for pain. Alternate ice and heat to the affected area(s) several times daily for 20 minutes at a time. Follow-up with your primary care doctor in 1 week. Return to the emergency department with any worsening or new concerning symptoms. Discharge Data Discharge Date/Time-TO BE ENTERED AT DEPARTURE: 07/13/22 02:01 Discharge Physician: Abbie Haines Medical Decision Making <VIRGIE Maynard - Last Filed: 07/14/22 21:58> 61-year-old gentleman who presents with epigastric abdominal pain for the past 24 hours Clinically patient with tenderness in his epigastrium, no rebound or guarding, benign abdominal exam Clinically low suspicion for pulmonary embolism, no tachypnea, no tachycardia, no hypoxia Low suspicion for coronary artery disease, negative initial troponin, CBC, CMP, lipase Patient is pending CT abdomen and pelvis and repeat troponin Care transition to Dr. Haines pending CT and diagnostic labs Medical Records Medical records reviewed: Yes I reviewed the patient's medical records. Lab Data Lab results reviewed: Yes I reviewed the patient's lab results. <Abbie Haines, DO - Last Filed: 07/13/22 01:44> VIRGIE Mayers 61-year-old gentleman who presents with epigastric abdominal pain for the past 24 hours Clinically patient with tenderness in his epigastrium, no rebound or guarding, benign abdominal exam Clinically low suspicion for pulmonary embolism, no tachypnea, no tachycardia, no hypoxia Low suspicion for coronary artery disease, negative initial troponin, CBC, CMP, lipase Patient is pending CT abdomen and pelvis and repeat troponin Care transition to Dr. Haines pending CT and diagnostic labs. Dr. Haines [id number] --please see VIRGIE Mayers note for initial presentation, exam and plan. Case endorsed to follow-up on CT abdomen and pelvis and delta troponin. 61-year-old male presents with upper abdominal pain for the past 3 days. Patient states for 2 days prior to onset of symptoms he was moving heavy furniture for his mom who is moving. He states he moved a maximum of 100 pounds. He states the pain is in the upper abdomen and sharp and occurs only with coughing, laying on his left side or any movement. He denies any pain at rest. He denies any fever, vomiting, diarrhea or urinary symptoms. He has tenderness in the upper abdomen. Suspect most likely strain of abdominal wall. History and presentation does not appear consistent with ACS, PE or dissection. Will add lipase. 0145 --labs and imaging reviewed and unremarkable. Normal white blood cell count. Troponin negative x2. Lipase within normal limits. CXR and CT negative for acute findings. Patient reassessed and he feels comfortable going home. He was offered Tylenol here but declined. He states he cannot take NSAIDs or aspirin due to allergy and sensitivity. Advised to alternate ice and heat. Advised to follow up with the primary care doctor for re-evaluation. Usual and customary return precautions given prior to discharge. Imaging Data Radiologic Study: Radiologist's impression: CT Abdomen And Pelvis With Contrast Exam date and time: 07/12/2022 11:54 PM Age: 61 years old Clinical indication: Other: Pain TECHNIQUE: Imaging protocol: Computed tomography of the abdomen and pelvis with contrast. Contrast material: [id number]; Contrast volume: 100 ml; Contrast route: INTRAVENOUS (IV);? COMPARISON: CT CHEST LUNG CANCER SCREEN 03/06/2022 12:47 PM FINDINGS: Liver:? Multiple indeterminate faint hypodensities observed. Fatty infiltration. Gallbladder and bile ducts: No calcified stones. No ductal dilation. Pancreas: . No ductal dilation. Spleen: Normal. No splenomegaly. Adrenal glands: Normal. No mass. Kidneys and ureters: Normal. No hydronephrosis. Stomach and bowel:? Colonic diverticulosis. No obstruction. No mucosal thickening. Appendix: No evidence of appendicitis. Intraperitoneal space: Unremarkable. No free air. No significant fluid collection. Vasculature:? Aortic ectasia up to 2.9 cm No abdominal aortic aneurysm. Lymph nodes: Unremarkable. No enlarged lymph nodes. Urinary bladder: Unremarkable as visualized. Reproductive: Unremarkable as visualized. Bones/joints: Unremarkable. No acute fracture. Soft tissues: Unremarkable. IMPRESSION: No acute findings. Nonurgent findings as noted. XR Chest Exam date and time: 07/13/2022 12:03 AM Age: 61 years old Clinical indication: Cough TECHNIQUE: Imaging protocol: Radiologic exam of the chest. Views: 2 views. COMPARISON: CT CHEST LUNG CANCER SCREEN 03/06/2022 12:47 PM FINDINGS: Lungs: Unremarkable. No consolidation. Pleural spaces: Unremarkable. No pleural effusion. No pneumothorax. Heart/Mediastinum: Unremarkable. No cardiomegaly. Bones/joints: Unremarkable. IMPRESSION: No acute findings. Lab Data Labs: Laboratory Tests Range/Units 07/12/22 07/12/22 07/13/22 21:50 21:50 00:24 WBC (4.4-10.8) 10^3/uL 7.00 RBC (4.36-5.78) 10^6/uL 3.67 L Hgb (13.5-17.5) g/dL 12.0 L Hct (40.0-50.0) % 34.5 L MCV (80-95) fL 94 MCH (27.0-33.0) pg 32.7 MCHC (32.0-36.0) % 34.8 RDW (11.8-14.1) % 13.0 Plt Count (130-400) 10^3/uL 240 MPV (8.0-11.0) fL 8.8 Immature Gran % 0.3 Neutrophils % 58.7 Lymphocytes % 25.6 Monocytes % 12.0 Eosinophils % 3.1 Basophils % 0.3 Nucleated RBC % (0.0-0.3) % 0.0 Absolute Neutrophils (1.2-6.7) 10^3/uL 4.11 Absolute Lymphocytes (1.2-3.4) 10^3/uL 1.79 Absolute Monocytes (0.1-0.8) 10^3/uL 0.84 H Absolute Eosinophils (0.0-0.7) 10^3/uL 0.22 Absolute Basophils (0.0-0.2) 10^3/uL 0.02 Sodium (136-145) mmol/L 139 Potassium (3.5-5.1) mmol/L 4.2 Chloride (98-107) mmol/L 104 Carbon Dioxide (21.0-32.0) mmol/L 30.8 Anion Gap (3-11) mmol/L 4.2 BUN (7-18) mg/dL 22 H Creatinine (0.70-1.30) mg/dL 1.1 Est GFR (CKD-EPI 2020) (mL/min/1.73m2) 75.43 Glucose (74-106) mg/dL 109 H Calcium (8.5-10.1) mg/dL 8.8 Magnesium (1.8-2.4) mg/dL 2.0 Total Bilirubin (0.2-1.0) mg/dL 0.6 AST (15-37) U/L 12 L ALT (16-63) U/L 19 Alkaline Phosphatase (46-116) U/L 84 Troponin I (<or=60) ng/L < 50 < 50 Total Protein (6.4-8.2) g/dL 6.8 Albumin (3.4-5.0) g/dL 3.7 Lipase (16-77) U/L Range/Units 07/13/22 00:24 WBC (4.4-10.8) 10^3/uL RBC (4.36-5.78) 10^6/uL Hgb (13.5-17.5) g/dL Hct (40.0-50.0) % MCV (80-95) fL MCH (27.0-33.0) pg MCHC (32.0-36.0) % RDW (11.8-14.1) % Plt Count (130-400) 10^3/uL MPV (8.0-11.0) fL Immature Gran % Neutrophils % Lymphocytes % Monocytes % Eosinophils % Basophils % Nucleated RBC % (0.0-0.3) % Absolute Neutrophils (1.2-6.7) 10^3/uL Absolute Lymphocytes (1.2-3.4) 10^3/uL Absolute Monocytes (0.1-0.8) 10^3/uL Absolute Eosinophils (0.0-0.7) 10^3/uL Absolute Basophils (0.0-0.2) 10^3/uL Sodium (136-145) mmol/L Potassium (3.5-5.1) mmol/L Chloride (98-107) mmol/L Carbon Dioxide (21.0-32.0) mmol/L Anion Gap (3-11) mmol/L BUN (7-18) mg/dL Creatinine (0.70-1.30) mg/dL Est GFR (CKD-EPI 2020) (mL/min/1.73m2) Glucose (74-106) mg/dL Calcium (8.5-10.1) mg/dL Magnesium (1.8-2.4) mg/dL Total Bilirubin (0.2-1.0) mg/dL AST (15-37) U/L ALT (16-63) U/L Alkaline Phosphatase (46-116) U/L Troponin I (<or=60) ng/L Total Protein (6.4-8.2) g/dL Albumin (3.4-5.0) g/dL Lipase (16-77) U/L 35 ECG Data Attestation: I personally reviewed and interpreted this ECG (s) as follows: Interpretation: rate of 69, sinus, normal axis, no stemi. HPI <VIRGIE Maynard - Last Filed: 07/14/22 21:58> General Date/Time Provider Initiated Documentation: 07/12/22 21:24 . HPI Narrative: This 61-year-old male presents with report of epigastric abdominal pain for the past 24 hours. He states is intermittent. He denies any exertional component. He states that this evening when he was laying on his right side watching TV the pain came on again. He denies any current discomfort. Denies regular alcohol consumption. Denies any chest pain or shortness of breath. Denies any nausea or vomiting. Has not attempted any [id number] medications for patient. Denies history of similar pain in the past. Related Data Home Medications Medication Instructions Recorded Confirmed nortriptyline 25 mg capsule 50 mg PO HS 07/16/14 04/02/22 acetaminophen 500 mg tablet 1,000 mg PO PRN PRN 03/07/18 04/02/22 albuterol sulfate 90 mcg/actuation 1 puff inhalation DAILY PRN #8.5 02/01/20 04/02/22 aerosol inhaler (Ventolin HFA) grams propranolol 80 mg tablet 80 mg PO BID 02/01/20 04/02/22 lisinopril 5 mg tablet 5 mg PO DAILY AM 04/15/21 04/02/22 nebulizer and compressor (Comp-Air 04/15/21 04/02/22 Nebulizer Compressor) budesonide 160 mcg-glycopyr 9 2 inh inhalation BID 02/01/22 04/02/22 mcg-formot 4.8 mcg/actuation HFA inhaler (Breztri Aerosphere) methocarbamol 500 mg tablet 500 mg PO Q6H PRN muscle spasm #14 02/01/22 04/02/22 tabs sucralfate 1 gram tablet (Carafate) 1 g PO BID #20 tabs 07/12/22 Previous Rx's Medication Instructions Recorded albuterol sulfate 90 mcg/actuation 1 puff inhalation DAILY PRN #8.5 02/01/20 aerosol inhaler (Ventolin HFA) grams methocarbamol 500 mg tablet 500 mg PO Q6H PRN muscle spasm #14 02/01/22 tabs sucralfate 1 gram tablet (Carafate) 1 g PO BID #20 tabs 07/12/22 Allergies Allergy/AdvReac Type Severity Reaction Status Date / Time aspirin Allergy Intermediate Skin Rash Verified 04/02/22 09:29 crab Allergy Anaphylaxsi Verified 04/02/22 09:29 s hydrocodone [Hydrocodone] AdvReac Severe dizzy and Verified 04/02/22 09:29 nausea lobster Allergy Anaphylaxsi Uncoded 04/02/22 09:29 s General Stated Complaint: Abd Prob BRAEDEN: 3 PFSH <VIRGIE Maynard Last Filed: 07/14/22 21:58> All Active Problems (Updated 07/13/22 @ 00:57 by Abbie Haines DO) Abdominal wall strain (Acute) Epigastric abdominal pain (Acute) Epicondylitis, lateral, left (Acute) Shortness of breath (Acute) COPD exacerbation (Acute) COVID (Acute) Right lateral epicondylitis (Acute) Medical History (Updated 07/13/22 @ 00:57 by Abbie Haines DO) COPD (chronic obstructive pulmonary disease) Obstructive sleep apnea Surgical History History of appendectomy Social History Smoking/Tobacco Use Status: Current every day Tobacco Type: cigarettes Smoking risk assessment performed?: Yes Alcohol Intake: never Drug use: Never Substance use type: does not use Do you feel safe at home: Yes Do you feel safe in your relationship?: Yes Exam <VIRGIE Maynard Last Filed: 07/14/22 21:58> Narrative Exam Narrative: Patient is alert and oriented calm, cooperative Moist mucous membranes, no scleral icterus, lungs clear to auscultation bilaterally, rate rhythm regular cardiovascularly, abdominal discomfort with tenderness across epigastrium, no rebound or guarding, no abdominal bruit or pulsatile mass, no calf swelling or tenderness, distal pulses intact Const General: cooperative, comfortable and no acute distress GI Inspection: normal to inspection Course <VIRGIE Maynard Last Filed: 07/14/22 21:58> Vital Signs Vital signs: Vital Signs Temperature 36.6 C 07/12/22 21:10 Pulse 68 07/12/22 21:10 Respiratory Rate 16 07/12/22 21:10 Blood Pressure 148/84 H 07/12/22 21:10 Pulse Oximetry 100 07/12/22 21:10 Temperature 36.6 C 07/12/22 21:10 Temperature Source Oral 07/12/22 21:10 Pulse 68 07/12/22 21:10 Respiratory Rate 16 07/12/22 21:10 Respiratory Effort Normal 07/12/22 21:19 Blood Pressure 148/84 H 07/12/22 21:10 Blood Pressure Position Sitting 07/12/22 21:10 Pulse Oximetry 100 07/12/22 21:10 Oxygen Delivery Method Room Air 07/12/22 21:10 Oxygen Flow Rate 0 07/12/22 21:10 Pain Level 2 07/12/22 21:10 Comment Minimal pain with sitting 07/12/22 21:10 Lab/Test Results Lab/Test Results: Laboratory Tests Range/Units 07/12/22 07/12/22 21:50 21:50 WBC (4.4-10.8) 10^3/uL 7.00 RBC (4.36-5.78) 10^6/uL 3.67 L Hgb (13.5-17.5) g/dL 12.0 L Hct (40.0-50.0) % 34.5 L MCV (80-95) fL 94 MCH (27.0-33.0) pg 32.7 MCHC (32.0-36.0) % 34.8 RDW (11.8-14.1) % 13.0 Plt Count (130-400) 10^3/uL 240 MPV (8.0-11.0) fL 8.8 Immature Gran % 0.3 Neutrophils % 58.7 Lymphocytes % 25.6 Monocytes % 12.0 Eosinophils % 3.1 Basophils % 0.3 Nucleated RBC % (0.0-0.3) % 0.0 Absolute Neutrophils (1.2-6.7) 10^3/uL 4.11 Absolute Lymphocytes (1.2-3.4) 10^3/uL 1.79 Absolute Monocytes (0.1-0.8) 10^3/uL 0.84 H Absolute Eosinophils (0.0-0.7) 10^3/uL 0.22 Absolute Basophils (0.0-0.2) 10^3/uL 0.02 Sodium (136-145) mmol/L 139 Potassium (3.5-5.1) mmol/L 4.2 Chloride (98-107) mmol/L 104 Carbon Dioxide (21.0-32.0) mmol/L 30.8 Anion Gap (3-11) mmol/L 4.2 BUN (7-18) mg/dL 22 H Creatinine (0.70-1.30) mg/dL 1.1 Est GFR (CKD-EPI 2020) (mL/min/1.73m2) 75.43 Glucose (74-106) mg/dL 109 H Calcium (8.5-10.1) mg/dL 8.8 Magnesium (1.8-2.4) mg/dL 2.0 Total Bilirubin (0.2-1.0) mg/dL 0.6 AST (15-37) U/L 12 L ALT (16-63) U/L 19 Alkaline Phosphatase (46-116) U/L 84 Troponin I (<or=60) ng/L < 50 Total Protein (6.4-8.2) g/dL 6.8 Albumin (3.4-5.0) g/dL 3.7 Sign Out <VIRGIE Maynard - Last Filed: 07/14/22 21:58> Sign Out Data: Sign Out Comment: pending repeat trop [address] abd/pelvis Last updated by Gila Mayers PA at 07/12/22 23:40
--- NOTE | 2022-07-12 23:45 | DI.CT_ITS ---
Exam(s) CT ABDOMEN PELVIS W EXAM: CT ABDOMEN PELVIS W CLINICAL HISTORY: EPIGASTRIC PAIN. TECHNIQUE: Imaging Protocol: Axial computed tomography images with coronal and sagittal reformatted images were created and reviewed CONTRAST MATERIAL: Intravenous: Omnipaque 350 Contrast volume:100 ml Oral: / no COMPARISON: CT CT CHEST PE CTA from 04/15/2021 FINDINGS: ABDOMEN: Lung Bases: Emphysematous changes visible. Otherwise clear. Liver: Normal density. Innumerable tiny cysts. Gallbladder and biliary tract: No radiodense calculus or dilation. Pancreas: Normal density, no abnormal calcifications or inflammatory process. Spleen: Normal. Kidneys: Normal size, contour and axis. No radiodense stones or obstructive uropathy. No masses seen. Adrenal glands: No masses seen. Abdominal Aorta: Mild dilatation to 3 cm. Mild mural thrombus is well as moderate calcification. Il iac arteries heavily calcified proximally with moderate stenosis. PELVIS: Bladder: Distended. No wall thickening no calculi.No focal mass. Bowel: Increased stool seen in ascending to the hepatic flexure. Moderate stool elsewhere. No wall thickening. Small bowel unremarkable. No obstruction or bowel wall thickening. No evidence of appen dicitis. Peritoneal cavity: No ascites, collection or mesenteric inflammatory response. Bones: Within normal limits for age. Reproductive organs: Prostate mildly enlarged. Lymph nodes: Unremarkable. Impression: Increased stool in right colon. No evidence of inflammation. Mild aortic aneurysm. Atherosclerotic changes of the proximal iliac arteries causing moderate stenos is. RADIATION DOSE DELIVERED: 1,029.06mGy.cm Total DLP DATA REPOSITORY: All CT scans at this facility are submitted to the National Radiology Data Registry (NRDR) Dose Index Registry (DIR) with the [employer] (A[employer]). RADIATION OPTIMIZATION: All CT scans at this facility use at least one of these dose optimization te chniques: automated exposure control; mA and/or kV adjustment per patient size (includes targeted exa ms where dose is matched to clinical indication); or iterative reconstruction.
[2022-07-12] MEDS: Omnipaque 350 MG/ML 100 ML BTL IJ (23:56)
[2022-07-13] VITALS (17 sets, daily range): BP systolic 118–143; BP diastolic 76–95; PULSE 62–83; RESP 8–20; O2SAT 94–100
--- NOTE | 2022-07-13 00:20 | DI.VRAD_ITS ---
PROCEDURE INFORMATION: Exam: CT Abdomen And Pelvis With Contrast Exam date and time: 07/12/2022 11:54 PM Age: 61 years old Clinical indication: Other: Pain TECHNIQUE: Imaging protocol: Computed tomography of the abdomen and pelvis with contrast. Contrast material: [id number]; Contrast volume: 100 ml; Contrast route: INTRAVENOUS (IV); COMPARISON: CT CHEST LUNG CANCER SCREEN 03/06/2022 12:47 PM FINDINGS: Liver: Multiple indeterminate faint hypodensities observed. Fatty infiltration. Gallbladder and bile ducts: No calcified stones. No ductal dilation. Pancreas: . No ductal dilation. Spleen: Normal. No splenomegaly. Adrenal glands: Normal. No mass. Kidneys and ureters: Normal. No hydronephrosis. Stomach and bowel: Colonic diverticulosis. No obstruction. No mucosal thickening. Appendix: No evidence of appendicitis. Intraperitoneal space: Unremarkable. No free air. No significant fluid collection. Vasculature: Aortic ectasia up to 2.9 cm No abdominal aortic aneurysm. Lymph nodes: Unremarkable. No enlarged lymph nodes. Urinary bladder: Unremarkable as visualized. Reproductive: Unremarkable as visualized. Bones/joints: Unremarkable. No acute fracture. Soft tissues: Unremarkable. IMPRESSION: No acute findings. Nonurgent findings as noted Dictated and Authenticated by: Erick Puckett MD. Ordering:TAVON Uriostegui MD
--- NOTE | 2022-07-13 00:20 | DI.VRAD_ITS ---
PROCEDURE INFORMATION: Exam: XR Chest Exam date and time: 07/13/2022 12:03 AM Age: 61 years old Clinical indication: Cough TECHNIQUE: Imaging protocol: Radiologic exam of the chest. Views: 2 views. COMPARISON: CT CHEST LUNG CANCER SCREEN 03/06/2022 12:47 PM FINDINGS: Lungs: Unremarkable. No consolidation. Pleural spaces: Unremarkable. No pleural effusion. No pneumothorax. Heart/Mediastinum: Unremarkable. No cardiomegaly. Bones/joints: Unremarkable. IMPRESSION: No acute findings. Dictated and Authenticated by: Erick Puckett MD. Ordering:TAVON Uriostegui MD
[2022-07-13 00:49] LABS: Troponin I < 50 ng/L (<or=60)
[2022-07-13 01:23] LABS: Lipase 35 U/L (16-77)
== END 2022-07-13 02:01 | disposition home or self-care (01) ==
PROVIDERS: Physician Assistant; Emergency Provider Physician Assistant; PCP Nurse Practitioner Family
DX: S39.011A Strain of muscle, fascia and tendon of abdomen, initial encounter (principal); J44.1 Chronic obstructive pulmonary disease with (acute) exacerbation; Z86.16 Personal history of COVID-19; X50.1XXA Overexertion from prolonged static or awkward postures, initial encounter; Y93.89 Activity, other specified
CPT/HCPCS: 36415; 80053; 83690; 93005; 96374; 99285; 71046; 74177; 83735; 84484; 85025; 93010; 99283; J3490

== ENCOUNTER 2023-01-15 12:39 | Outpatient (REF) | payer MEDICARE, MEDICAID, SELFPAY ==
[2023-01-15 14:11] LABS: HCT 35.9 % (40.0-50.0); HGB 12.5 g/dL (13.5-17.5); MCHC 34.8 % (32.0-36.0); MCV 95 fL (80-95); MPV 9.6 fL (8.0-11.0); Platelet Count 288 10^3/uL (130-400); RBC 3.79 10^6/uL (4.36-5.78); RDW 13.7 % (11.8-14.1); RDW-SD 47.3 fL; WBC 7.78 10^3/uL (4.4-10.8)
[2023-01-15 14:31] LABS: ALT 22 U/L (16-63); AST 17 U/L (15-37); Alkaline Phosphatase 105 U/L (46-116); Anion Gap 4.9 mmol/L (3-11); BUN 19 mg/dL (7-18); Bilirubin, Total 1.3 mg/dL (0.2-1.0); CO2 32.1 mmol/L (21.0-32.0); CREATININE 1.1 mg/dL (0.70-1.30); Calcium 8.9 mg/dL (8.5-10.1); Calculated LDL 41 mg/dL (<100); Chloride 97 mmol/L (98-107); Cholesterol 106 mg/dL (<200); Estimated GFR 74.96 (mL/min/1.73m2); Glucose 113 mg/dL (74-106); HDL Cholesterol 43 mg/dL (40-60); Potassium 4.6 mmol/L (3.5-5.1); Sodium 134 mmol/L (136-145); Total Protein 7.4 g/dL (6.4-8.2); Triglyceride 111 mg/dL (<150)
[2023-01-15 22:53] LABS: PSA, Screening 0.6 ng/mL (<=4.5)
== END 2023-01-15 12:40 | disposition home or self-care (01) ==
LOC: NCHCN 12:39
PROVIDERS: PCP Nurse Practitioner Family; Visit Provider Nurse Practitioner Family
DX: D64.9 Anemia, unspecified (principal); I10 Essential (primary) hypertension; I25.10 Atherosclerotic heart disease of native coronary artery without angina pectoris; Z12.5 Encounter for screening for malignant neoplasm of prostate
CPT/HCPCS: 80053; 80061; 84153; 85027

== ENCOUNTER 2023-01-19 16:47 | Emergency (ER) | payer MEDICARE, MEDICAID, SELFPAY ==
[2023-01-19 16:48] VITALS: BP 167/88; PULSE 77; RESP 18; TEMP 37.2; O2SAT 100
[2023-01-19 16:51] VITALS: BP 167/88; PULSE 77
[2023-01-19 16:54] VITALS: PULSE 75; RESP 18
--- NOTE | 2023-01-19 17:00 | RT.EKG_ITS ---
APPROVED REPORT Exam: Resting ECG Reason for Exam: shortness of breath Patient Location: E HR:68 bpm ECG Measurements Heart Rate 68 AXIS NM 148 P 65 QRSd 100 QRS 103 QT 405 T 74 QTc 428 Conclusion Sinus rhythm...normal P axis, V-rate 60- 99 Atrial premature complex...SV complex w/ short R-R interval Right axis deviation...QRS axis ( 91,269) Nonspecific T abnrm, anterolateral leads...T <-0.10mV, I aVL V2-V6 Normal sinus rhythm at a rate of 68 with interventricular conduction delay and QRS of 100 ms. Right axis Similar to prior. T wave inversion in V2 new compared to prior. No ST segment abnormalities. T wave flattening in aVL slightly improved compared to prior. Prior dated earlier this year.
[2023-01-19] MEDS: methylPREDNISolone SUCC 125 MG VIAL IVP (17:11)
[2023-01-19] MEDS: Albuterol/Ipratropium 3 ML UPD VIAL UPD ×2 (17:11→18:36)
[2023-01-19 17:22] LABS: Source Nasal/Nares
[2023-01-19 17:24] LABS: Abs Immature Grans 0.03 10^3/uL (0.0-0.06); Absolute Basophil Count 0.01 10^3/uL (0.0-0.2); Absolute Eosinophil Count 0.26 10^3/uL (0.0-0.7); Absolute Lymphocyte Count 1.19 10^3/uL (1.2-3.4); Absolute Monocyte Count 0.57 10^3/uL (0.1-0.8); Absolute Neutrophil Count 4.21 10^3/uL (1.2-6.7); Basophils % 0.2; Eosinophils % 4.1; HCT 35.4 % (40.0-50.0); HGB 12.4 g/dL (13.5-17.5); Immature Grans % 0.5; MCH 33.5 pg (27.0-33.0); MCV 96 fL (80-95); Monocytes % 9.1; Neutrophils % 67.1; Platelet Count 252 10^3/uL (130-400); RDW 13.8 % (11.8-14.1); RDW-SD 48.7 fL; WBC 6.27 10^3/uL (4.4-10.8)
--- NOTE | 2023-01-19 17:38 | DI.RAD_ITS ---
Exam(s) XR PORTABLE CHEST AP EXAM: XR PORTABLE CHEST AP CLINICAL HISTORY: cough, shortness of breath TECHNIQUE: 2D digital imaging was performed of the chest. Two images were obtained. AP views were obtained. COMPARISON: CR,XR XR CHEST 2V PA LATERAL from 07/13/2022 FINDINGS: MEDIASTINUM: Normal. HEART: Normal. PULMONARY VASCULATURE: Normal. LUNGS: The lungs are hyperinflated suggesting underlying COPD. No focal consolidation is seen. PLEURAL SPACE: No pleural effusion or pneumothorax. BONE:Within normal limits for the patient's age. OTHER FINDINGS:Normal. IMPRESSION: No acute pulmonary findings. DATA REPOSITORY: RADIATION DOSE DELIVERED:
[2023-01-19 17:49] LABS: ALT 21 U/L (16-63); AST 20 U/L (15-37); Alkaline Phosphatase 101 U/L (46-116); Anion Gap 5.8 mmol/L (3-11); BUN 14 mg/dL (7-18); CO2 31.2 mmol/L (21.0-32.0); CREATININE 1.1 mg/dL (0.70-1.30); Calcium 8.9 mg/dL (8.5-10.1); Chloride 99 mmol/L (98-107); Estimated GFR 74.96 (mL/min/1.73m2); Glucose 101 mg/dL (74-106); Magnesium 1.9 mg/dL (1.8-2.4); NT-proBNP 100 pg/mL (<300); Potassium 4.2 mmol/L (3.5-5.1); Sodium 136 mmol/L (136-145); Total Protein 7.5 g/dL (6.4-8.2); Troponin I < 50 ng/L (<or=60)
[2023-01-19 17:56] LABS: COVID-19 PCR Negative (Negative)
--- NOTE | 2023-01-19 18:02 | DI.VRAD_ITS ---
PROCEDURE INFORMATION: Exam: XR Chest Exam date and time: 01/19/2023 5:29 PM Age: 62 years old Clinical indication: Cough and shortness of breath; Patient HX: Cough, shortness of breath TECHNIQUE: Imaging protocol: Radiologic exam of the chest. Views: 1 view. COMPARISON: CR XR CHEST 2V PA LATERAL 07/13/2022 12:03 AM FINDINGS: Lungs: No consolidation. No Mass Pleural spaces: No pleural effusion. No pneumothorax. Heart/Mediastinum: Unremarkable Vasculature: Calcifications at the aortic arch. Bones/joints: No significant abnormality IMPRESSION: No acute cardiopulmonary disease Dictated and Authenticated by: Chepe Shepard MD. Ordering:TAVON Uriostegui MD
--- NOTE | 2023-01-19 19:36 | ED.GENADUL_ITS ---
Discharge Plan Disposition Patient Disposition: Home Condition: Stable Discharge Details Clinical Impression: Asthma exacerbation in COPD Primary Care Provider: Milagro Sanchez ED Provider: Gila Mayers Home Meds and New Rx's Prescriptions: New prednisone 20 mg tablet 40 mg PO ONCE Qty: 10 0RF doxycycline hyclate 100 mg tablet 100 mg PO BID Qty: 20 0RF albuterol sulfate 1.25 mg/3 mL solution for nebulization 1.25 mg inhalation QID PRNQty: 75 0RF Continued nortriptyline 25 MG capsule 50 mg PO HS acetaminophen 500 mg Tablet 1,000 mg PO PRN PRN lisinopril 5 mg tablet 5 mg PO DAILY AM Patient Comments: TAKE ONE TABLET BY MOUTH EVERY DAY (DME) nebulizer and compressor [Comp-Air Nebulizer Compressor] Device MISCELLANEOUS Patient Comments: USE 1 DEVICE DIRECTED EVERY 4 HOURS WHILE AWAKE NEEDED Breztri Aerosphere 160-9-4.8 mcg/actuation HFA aerosol inhaler 2 inh INHALATION BID Patient Comments: INHALE TWO PUFFS BY MOUTH TWICE A DAY methocarbamol 500 mg tablet 500 mg PO Q6H PRN (Reason: muscle spasm) Qty: 14 0RF propranolol 80 mg tablet 80 mg PO BID albuterol sulfate [Ventolin HFA] 90 mcg/actuation HFA aerosol inhaler 1 puff INHALATION DAILY PRNQty: 8.5 0RF sucralfate [Carafate] 1 gram tablet 1 g PO BID Qty: 20 0RF Discharge Instructions Additional Instructions: Use your albuterol 2 puffs every 4 hours while awake Continue taking your other long-term COPD medications Take the doxycycline for the next 10 days, you have a prescription at the pharmacy Take the prednisone for the next 5 days, the prescription is also at the pharmacy Please return earlier should you have worsening chest pain, shortness of breath, or with any new or worsening complaints Referrals: Milagro Sanchez [Primary Care Provider] - Medical Decision Making 62-year-old gentleman presents with shortness of breath, given neb by EMS, upon arrival he is 92% on room air, he is in respiratory distress and has diminished breath sounds After review 2 DuoNebs I hear wheezing and he is speaking in complete sentences and his breathing has improved Third neb was administered and patient is now 94% on room air, ambulatory without hypoxia, and feeling marked improvement, he still has some mild is in no acute respiratory distress Return precautions were reviewed in detail and patient expressed understanding, discharged home on doxycycline, prednisone, and albuterol for his nebulizer, he has Ventolin inhaler at home in addition to his COPD steroid inhalers Return precautions were reviewed in detail and patient expressed understanding, request discharge home, ambulatory with steady gait, HPI General Date/Time Provider Initiated Documentation: 01/19/23 16:57 . HPI Narrative: This 62-year-old male with history of COPD presents with report of shortness of breath, he states that he ran out of his albuterol and became short of breath yesterday evening. He states this worsened over the course of the past day. He denies any chest pain. He states this feels just like his prior episodes of COPD exacerbation. He denies any fever or chills. He denies any new cough. He denies any calf pain or swelling, recent flights, surgeries, long drives. Denies any hemoptysis or history of cancer. Related Data Home Medications Medication Instructions Recorded Confirmed nortriptyline 25 mg capsule 50 mg PO HS 07/16/14 04/02/22 acetaminophen 500 mg tablet 1,000 mg PO PRN PRN 03/07/18 04/02/22 albuterol sulfate 90 mcg/actuation 1 puff inhalation DAILY PRN #8.5 02/01/20 04/02/22 aerosol inhaler (Ventolin HFA) grams propranolol 80 mg tablet 80 mg PO BID 02/01/20 04/02/22 lisinopril 5 mg tablet 5 mg PO DAILY AM 04/15/21 04/02/22 nebulizer and compressor (Comp-Air 04/15/21 04/02/22 Nebulizer Compressor) budesonide 160 mcg-glycopyr 9 2 inh inhalation BID 02/01/22 04/02/22 mcg-formot 4.8 mcg/actuation HFA inhaler (Breztri Aerosphere) methocarbamol 500 mg tablet 500 mg PO Q6H PRN muscle spasm #14 02/01/22 04/02/22 tabs sucralfate 1 gram tablet (Carafate) 1 g PO BID #20 tabs 07/12/22 albuterol sulfate 1.25 mg/3 mL 1.25 mg (3 mL) inhalation QID PRN 08/26/23 solution for nebulization #75 mL doxycycline hyclate 100 mg tablet 100 mg PO BID #20 tabs 01/19/23 prednisone 20 mg tablet 40 mg PO ONCE #10 tabs 01/19/23 Previous Rx's Medication Instructions Recorded albuterol sulfate 90 mcg/actuation 1 puff inhalation DAILY PRN #8.5 02/01/20 aerosol inhaler (Ventolin HFA) grams methocarbamol 500 mg tablet 500 mg PO Q6H PRN muscle spasm #14 02/01/22 tabs sucralfate 1 gram tablet (Carafate) 1 g PO BID #20 tabs 07/12/22 albuterol sulfate 1.25 mg/3 mL 1.25 mg (3 mL) inhalation QID PRN 01/19/23 solution for nebulization #75 mL doxycycline hyclate 100 mg tablet 100 mg PO BID #20 tabs 01/19/23 prednisone 20 mg tablet 40 mg PO ONCE #10 tabs 01/19/23 Allergies Allergy/AdvReac Type Severity Reaction Status Date / Time aspirin Allergy Intermediate Skin Rash Verified 04/02/22 09:29 crab Allergy Anaphylaxsi Verified 04/02/22 09:29 s hydrocodone [Hydrocodone] AdvReac Severe dizzy and Verified 04/02/22 09:29 nausea lobster Allergy Anaphylaxsi Uncoded 04/02/22 09:29 s General Stated Complaint: SOB BRAEDEN: 3 PFSH All Active Problems (Updated 01/19/23 @ 19:37 by VIRGIE Maynard) Asthma exacerbation in COPD (Acute) Epicondylitis, lateral, left (Acute) Shortness of breath (Acute) COPD exacerbation (Acute) COVID (Acute) Right lateral epicondylitis (Acute) Medical History (Updated 01/19/23 @ 19:37 by VIRGIE Maynard) COPD (chronic obstructive pulmonary disease) Obstructive sleep apnea Surgical History History of appendectomy Social History Smoking/Tobacco Use Status: Current every day Tobacco Type: cigarettes Smoking risk assessment performed?: Yes Alcohol Intake: never Drug use: Never Substance use type: does not use Housing: apartment Do you feel safe at home: Yes Do you feel safe in your relationship?: Yes Course Vital Signs Vital signs: Vital Signs Temperature 37.2 C 01/19/23 16:48 Pulse 77 01/19/23 16:48 Respiratory Rate 18 01/19/23 16:48 Blood Pressure 167/88 H 01/19/23 16:48 Pulse Oximetry 100 01/19/23 16:48 Temperature 37.2 C 01/19/23 16:48 Pulse 77 01/19/23 16:51 Pulse 75 01/19/23 16:54 Respiratory Rate 18 01/19/23 16:54 Respiratory Effort Short of Breath 01/19/23 16:54 Respiratory Depth Normal 01/19/23 16:54 Respiratory Pattern Normal 01/19/23 16:54 Blood Pressure 167/88 H 01/19/23 16:51 Blood Pressure Mean 107 01/19/23 16:51 Pulse Oximetry 100 01/19/23 16:48 Oxygen Delivery Method Room Air 01/19/23 16:48 Oxygen Flow Rate 0 01/19/23 16:48 Lab/Test Results Lab/Test Results: Laboratory Tests Range/Units 01/19/23 01/19/23 01/19/23 17:15 17:15 17:15 WBC (4.4-10.8) 10^3/uL 6.27 RBC (4.36-5.78) 10^6/uL 3.70 L Hgb (13.5-17.5) g/dL 12.4 L Hct (40.0-50.0) % 35.4 L MCV (80-95) fL 96 H MCH (27.0-33.0) pg 33.5 H MCHC (32.0-36.0) % 35.0 RDW (11.8-14.1) % 13.8 Plt Count (130-400) 10^3/uL 252 MPV (8.0-11.0) fL 9.0 Immature Gran % 0.5 Neutrophils % 67.1 Lymphocytes % 19.0 Monocytes % 9.1 Eosinophils % 4.1 Basophils % 0.2 Nucleated RBC % (0.0-0.3) % 0.0 Absolute Neutrophils (1.2-6.7) 10^3/uL 4.21 Absolute Lymphocytes (1.2-3.4) 10^3/uL 1.19 L Absolute Monocytes (0.1-0.8) 10^3/uL 0.57 Absolute Eosinophils (0.0-0.7) 10^3/uL 0.26 Absolute Basophils (0.0-0.2) 10^3/uL 0.01 Sodium (136-145) mmol/L 136 Potassium (3.5-5.1) mmol/L 4.2 Chloride (98-107) mmol/L 99 Carbon Dioxide (21.0-32.0) mmol/L 31.2 Anion Gap (3-11) mmol/L 5.8 BUN (7-18) mg/dL 14 Creatinine (0.70-1.30) mg/dL 1.1 Est GFR (CKD-EPI 2020) (mL/min/1.73m2) 74.96 Glucose (74-106) mg/dL 101 Calcium (8.5-10.1) mg/dL 8.9 Magnesium (1.8-2.4) mg/dL 1.9 Total Bilirubin (0.2-1.0) mg/dL 1.0 AST (15-37) U/L 20 ALT (16-63) U/L 21 Alkaline Phosphatase (46-116) U/L 101 Troponin I (<or=60) ng/L < 50 NT-Pro-B Natriuret Pep (<300) pg/mL 100 Total Protein (6.4-8.2) g/dL 7.5 Albumin (3.4-5.0) g/dL 4.0 COVID-19 Source Nasal/Nares SARS-CoV-2 (PCR) (Negative) Negative
[2023-01-19] MEDS: Doxycycline Hyclate 100 MG, 2 CAPS/BTL PO (19:44)
[2023-01-19 19:50] VITALS: BP 135/80; PULSE 75; RESP 20; TEMP 36.6; O2SAT 90
== END 2023-01-19 19:52 | disposition home or self-care (01) ==
LOC: ER 19:58
PROVIDERS: Emergency Provider Physician Assistant; PCP Nurse Practitioner Family
DX: J44.1 Chronic obstructive pulmonary disease with (acute) exacerbation (principal)
CPT/HCPCS: 36415; 80053; 87635; 93005; 96374; 99284; 71045; 83735; 83880; 84484; 85025; 93010; J2930; J7620

== ENCOUNTER 2023-01-21 16:35 | Outpatient (REF) | payer MEDICARE, MEDICAID, SELFPAY ==
[2023-01-21 15:29] LABS: Iron 112 ug/dL (65-175); Total Iron Binding Capacity 258 ug/dL (250-450); Transferrin Sat 43 % (20-55)
[2023-01-21 15:31] LABS: Ferritin 228 ng/mL (26-388)
== END 2023-01-21 16:36 | disposition home or self-care (01) ==
LOC: NCHCN 16:35
PROVIDERS: PCP Nurse Practitioner Family; Visit Provider Nurse Practitioner Family
DX: D64.9 Anemia, unspecified (principal)
CPT/HCPCS: 82728; 82746; 83540; 83550

== ENCOUNTER 2023-02-14 13:56 | Emergency (ER) | payer MEDICARE, MEDICAID, SELFPAY ==
[2023-02-14] VITALS (39 sets, daily range): BP systolic 117–157; BP diastolic 65–96; PULSE 60–85; RESP 4–33; TEMP 36.7–36.9; O2SAT 94–100
--- NOTE | 2023-02-14 14:00 | RT.EKG_ITS ---
APPROVED REPORT Exam: Resting ECG Reason for Exam: sob Patient Location: E HR:71 bpm ECG Measurements Heart Rate 71 AXIS IN 169 P 87 QRSd 94 QRS 100 QT 370 T 85 QTc 403 Conclusion Sinus rhythm.., V-rate 60- [address] segment or T wave abnormalities to suggest occlusive [place]
--- NOTE | 2023-02-14 14:15 | DI.RAD_ITS ---
Exam(s) XR PORTABLE CHEST AP EXAM: XR PORTABLE CHEST AP CLINICAL HISTORY: short of breath TECHNIQUE: 2D digital imaging was performed. COMPARISON: CR,XR XR PORTABLE CHEST AP from 01/19/2023 FINDINGS: LUNGS: Emphysematous changes greatest at the upper lobes. Mildly increased interstitial changes, oth erwise clear. No pleural abnormality seen. HEART: Normal size. AORTA: Normal diameter. Calcification at arch. BONES: Unremarkable for age. Soft tissues: Unremarkable. IMPRESSION: Emphysematous changes. No acute findings. DATA REPOSITORY: RADIATION DOSE DELIVERED:
--- NOTE | 2023-02-14 14:18 | W.ED.GENAD ---
Discharge Plan Disposition Patient Disposition: Home Condition: Good Discharge Details Clinical Impression: COPD exacerbation Primary Care Provider: Milagro Sanchez ED Provider: Saige Gee Home Meds and New Rx's Prescriptions: No Action nortriptyline 25 MG capsule 50 mg PO HS acetaminophen 500 mg Tablet 1,000 mg PO PRN PRN lisinopril 5 mg tablet 5 mg PO DAILY AM Patient Comments: TAKE ONE TABLET BY MOUTH EVERY DAY (DME) nebulizer and compressor [Comp-Air Nebulizer Compressor] Device MISCELLANEOUS Patient Comments: USE 1 DEVICE DIRECTED EVERY 4 HOURS WHILE AWAKE NEEDED Bremattytri Aerosphere 160-9-4.8 mcg/actuation HFA aerosol inhaler 2 inh INHALATION BID Patient Comments: INHALE TWO PUFFS BY MOUTH TWICE A DAY methocarbamol 500 mg tablet 500 mg PO Q6H PRN (Reason: muscle spasm) Qty: 14 0RF Patient Comments: PT states not taking ML 02/14/23 propranolol 80 mg tablet 80 mg PO BID Patient Comments: PT states he takes 40 mg twice daily albuterol sulfate [Ventolin HFA] 90 mcg/actuation HFA aerosol inhaler 1 puff INHALATION DAILY PRNQty: 8.5 0RF sucralfate [Carafate] 1 gram tablet 1 g PO BID Qty: 20 0RF Patient Comments: Pt states he never took this medication - ML 02/14/23 prednisone 20 mg tablet 40 mg PO ONCE Qty: 10 0RF Patient Comments: PT states not taking ML 02/14/23 doxycycline hyclate 100 mg tablet 100 mg PO BID Qty: 20 0RF Patient Comments: PT states not taking ML 02/14/23 albuterol sulfate 1.25 mg/3 mL solution for nebulization 1.25 mg inhalation QID PRNQty: 75 0RF atorvastatin 40 mg tablet 40 mg PO DAILY Patient Comments: TAKE ONE TABLET BY MOUTH EVERY DAY Discharge Instructions Instructions: COPD (Chronic Obstructive Pulmonary Disease) (ED) Additional Instructions: Use your home breathing treatments. Call your PCP today to schedule an appointment within one week to follow up on your visit today. Mention that your bilirubin (liver enzyme) was slightly high; they may wish to discuss this further with you. Return to the emergency department for new or worsening symptoms including chest pain/tightness, difficulty breathing that does not respond to home treatments, fever, or if you have any other concerns. Referrals: Milagro Sanchez [Primary Care Provider] - Medical Decision Making 62yo M with hx of COPD, no prior cardiac hx, presenting with shortness of breath this morning, unrelieved by home breathing treatments. Vital signs reassuring, no hypoxia. Does have decreased air movement and increased work of breathing on exam. Will treat for presumed COPD excerbation with stacked duonebs, ceftriaxone, azithryomcyin, decadron. Not septic. CXR independently reviewed, no pneumothorax or focal pneumonia on my view, agree with radiology read below. Labs reviewed as below, CBC & CMP reassuring (anemia at baseline on [facility] record review; does have new mild hyper bili at 1.4 for which he was advised to followup with PCP). D-dimer negative; would not further pursue workup for pulmonary embolism/CT./etc. EKG NSR, appropriate intervals, no ST segment or T wave abnormalities to suggest occlusive [place]. Troponin negative x 1; in the setting of several hours of shortness of breath with no chest pain would not repeat or further workup ACS. On reassessment he reports feeling much improved, vital signs remain reassuring, WOB improved. He is requesting discharge home which is reasonable. With no increased sputum, fever, or focal pneumonia would not continue antibiotics at this time. Discharged home; discharge instructions including return precautions were reviewed with patient who verbalized understanding. All questions were answered and they are in full agreement with the plan. Imaging Data Radiologic Study: Imaging: X-Ray Radiologist's impression: IMPRESSION: Emphysematous changes.? No acute? finding Lab Data Lab results reviewed: Yes I reviewed the patient's lab results. Labs: Laboratory Tests Range/Units 02/14/23 02/14/23 02/14/23 14:15 14:15 14:15 WBC (4.4-10.8) 10^3/uL 6.19 RBC (4.36-5.78) 10^6/uL 3.75 L Hgb (13.5-17.5) g/dL 12.5 L Hct (40.0-50.0) % 35.6 L MCV (80-95) fL 95 MCH (27.0-33.0) pg 33.3 H MCHC (32.0-36.0) % 35.1 RDW (11.8-14.1) % 14.2 H Plt Count (130-400) 10^3/uL 234 MPV (8.0-11.0) fL 8.8 Immature Gran % 0.2 Neutrophils % 71.5 Lymphocytes % 14.9 Monocytes % 8.7 Eosinophils % 4.4 Basophils % 0.3 Nucleated RBC % (0.0-0.3) % 0.0 Absolute Neutrophils (1.2-6.7) 10^3/uL 4.43 Absolute Lymphocytes (1.2-3.4) 10^3/uL 0.92 L Absolute Monocytes (0.1-0.8) 10^3/uL 0.54 Absolute Eosinophils (0.0-0.7) 10^3/uL 0.27 Absolute Basophils (0.0-0.2) 10^3/uL 0.02 D-Dimer (<500) ng/mlFEU 495 Sodium (136-145) mmol/L 137 Potassium (3.5-5.1) mmol/L 3.9 Chloride (98-107) mmol/L 98 Carbon Dioxide (21.0-32.0) mmol/L 31.6 Anion Gap (3-11) mmol/L 7.4 BUN (7-18) mg/dL 15 Creatinine (0.70-1.30) mg/dL 1.1 Est GFR (CKD-EPI 2020) (mL/min/1.73m2) 74.96 Glucose (74-106) mg/dL 145 H Calcium (8.5-10.1) mg/dL 9.6 Magnesium (1.8-2.4) mg/dL 1.9 Total Bilirubin (0.2-1.0) mg/dL 1.4 H AST (15-37) U/L 22 ALT (16-63) U/L 25 Alkaline Phosphatase (46-116) U/L 100 Troponin I (<or=60) ng/L < 50 NT-Pro-B Natriuret Pep (<300) pg/mL 111 Total Protein (6.4-8.2) g/dL 7.9 Albumin (3.4-5.0) g/dL 4.0 COVID-19 Source SARS-CoV-2 (PCR) Influenza Type A (PCR) Influenza Type B (PCR) RSV (PCR) Range/Units 02/14/23 16:26 WBC (4.4-10.8) 10^3/uL RBC (4.36-5.78) 10^6/uL Hgb (13.5-17.5) g/dL Hct (40.0-50.0) % MCV (80-95) fL MCH (27.0-33.0) pg MCHC (32.0-36.0) % RDW (11.8-14.1) % Plt Count (130-400) 10^3/uL MPV (8.0-11.0) fL Immature Gran % Neutrophils % Lymphocytes % Monocytes % Eosinophils % Basophils % Nucleated RBC % (0.0-0.3) % Absolute Neutrophils (1.2-6.7) 10^3/uL Absolute Lymphocytes (1.2-3.4) 10^3/uL Absolute Monocytes (0.1-0.8) 10^3/uL Absolute Eosinophils (0.0-0.7) 10^3/uL Absolute Basophils (0.0-0.2) 10^3/uL D-Dimer (<500) ng/mlFEU Sodium (136-145) mmol/L Potassium (3.5-5.1) mmol/L Chloride (98-107) mmol/L Carbon Dioxide (21.0-32.0) mmol/L Anion Gap (3-11) mmol/L BUN (7-18) mg/dL Creatinine (0.70-1.30) mg/dL Est GFR (CKD-EPI 2020) (mL/min/1.73m2) Glucose (74-106) mg/dL Calcium (8.5-10.1) mg/dL Magnesium (1.8-2.4) mg/dL Total Bilirubin (0.2-1.0) mg/dL AST (15-37) U/L ALT (16-63) U/L Alkaline Phosphatase (46-116) U/L Troponin I (<or=60) ng/L NT-Pro-B Natriuret Pep (<300) pg/mL Total Protein (6.4-8.2) g/dL Albumin (3.4-5.0) g/dL COVID-19 Source Cancelled SARS-CoV-2 (PCR) Cancelled Influenza Type A (PCR) Cancelled Influenza Type B (PCR) Cancelled RSV (PCR) Cancelled HPI General Date/Time Provider Initiated Documentation: 02/14/23 14:02. Limitations to Documentation: no limitations. Information obtained by: patient. HPI Narrative: 62yo M with hx of COPD, no prior cardiac hx, presenting with shortness of breath this morning. Feels like he can't get enough air. No chest pain or chest tightness. Symptoms unrelieved by home breathing treatment. He is otherwise in his usual state of health with no fevers, chills, rash, nausea, vomiting, abdominal pain, LE edema, or other concerns. No known sick contacts. Related Data Home Medications Medication Instructions Recorded Confirmed nortriptyline 25 mg capsule 50 mg PO HS 07/16/14 02/14/23 acetaminophen 500 mg tablet 1,000 mg PO PRN PRN 03/07/18 02/14/23 albuterol sulfate 90 mcg/actuation 1 puff inhalation DAILY PRN #8.5 02/01/20 02/14/23 aerosol inhaler (Ventolin HFA) grams propranolol 80 mg tablet 80 mg PO BID 02/01/20 02/14/23 lisinopril 5 mg tablet 5 mg PO DAILY AM 04/15/21 02/14/23 nebulizer and compressor (Comp-Air 04/15/21 02/14/23 Nebulizer Compressor) budesonide 160 mcg-glycopyr 9 2 inh inhalation BID 02/01/22 02/14/23 mcg-formot 4.8 mcg/actuation HFA inhaler (Breztri Aerosphere) methocarbamol 500 mg tablet 500 mg PO Q6H PRN muscle spasm #14 02/01/22 04/02/22 tabs sucralfate 1 gram tablet (Carafate) 1 g PO BID #20 tabs 07/12/22 albuterol sulfate 1.25 mg/3 mL 1.25 mg (3 mL) inhalation QID PRN 01/19/23 02/14/23 solution for nebulization #75 mL doxycycline hyclate 100 mg tablet 100 mg PO BID #20 tabs 01/19/23 prednisone 20 mg tablet 40 mg PO ONCE #10 tabs 01/19/23 atorvastatin 40 mg tablet 40 mg PO DAILY 02/14/23 02/14/23 Previous Rx's Medication Instructions Recorded albuterol sulfate 90 mcg/actuation 1 puff inhalation DAILY PRN #8.5 02/01/20 aerosol inhaler (Ventolin HFA) grams methocarbamol 500 mg tablet 500 mg PO Q6H PRN muscle spasm #14 02/01/22 tabs sucralfate 1 gram tablet (Carafate) 1 g PO BID #20 tabs 07/12/22 albuterol sulfate 1.25 mg/3 mL 1.25 mg (3 mL) inhalation QID PRN 01/19/23 solution for nebulization #75 mL doxycycline hyclate 100 mg tablet 100 mg PO BID #20 tabs 01/19/23 prednisone 20 mg tablet 40 mg PO ONCE #10 tabs 01/19/23 Allergies Allergy/AdvReac Type Severity Reaction Status Date / Time aspirin Allergy Intermediate Skin Rash Verified 02/14/23 14:05 crab Allergy Anaphylaxsi Verified 02/14/23 14:05 s hydrocodone [Hydrocodone] AdvReac Severe dizzy and Verified 02/14/23 14:05 nausea lobster Allergy Anaphylaxsi Uncoded 02/14/23 14:05 s General Stated Complaint: SOB/SuddenOnset BRAEDEN: 3 Review of Systems Narrative: see HPI PFSH All Active Problems (Updated 02/14/23 @ 17:29 by Saige Gee MD) Asthma exacerbation in COPD (Acute) Epicondylitis, lateral, left (Acute) Shortness of breath (Acute) COPD exacerbation (Acute) COVID (Acute) Right lateral epicondylitis (Acute) Medical History (Updated 02/14/23 @ 17:29 by Saige Gee MD) COPD (chronic obstructive pulmonary disease) Obstructive sleep apnea Surgical History History of appendectomy Social History Smoking/Tobacco Use Status: Current every day Tobacco Type: cigarettes Smoking risk assessment performed?: Yes Alcohol Intake: never Drug use: Never Substance use type: does not use Housing: apartment Do you feel safe at home: Yes Do you feel safe in your relationship?: Yes Exam Narrative Exam Narrative: General: Alert, well appearing, well nourished Head: Normocephalic, atraumatic Neck: Trachea midline, Neck supple. ENT: MMM. No oropharygeal lesions or exudate. Cardiac: RRR, no murmurs appreciated Resp: Poor air movement, increased work of breathing. No wheeze or rhonchi. Abd: Soft, non-distended, nontender : No suprapubic tenderness. No CVA tenderness. Extremities: No deformities. No peripheral edema. Neurologic: GCS 15. Moves all extremities freely against gravity Course Vital Signs Vital signs: Vital Signs Temperature 36.7 C 02/14/23 14:02 Pulse 83 02/14/23 14:02 Respiratory Rate 18 02/14/23 14:02 Blood Pressure 132/86 02/14/23 14:02 Pulse Oximetry 98 02/14/23 14:02 Temperature 36.7 C 02/14/23 14:02 Pulse 83 02/14/23 14:02 Respiratory Rate 22 02/14/23 14:07 Respiratory Effort Labored 02/14/23 14:07 Respiratory Depth Normal 02/14/23 14:07 Respiratory Pattern Normal 02/14/23 14:07 Blood Pressure 132/86 02/14/23 14:02 Blood Pressure Position Sitting 02/14/23 14:02 Pulse Oximetry 98 02/14/23 14:02 Oxygen Delivery Method Room Air 02/14/23 14:02 Oxygen Flow Rate 0 02/14/23 14:02
[2023-02-14 14:30] LABS: Abs Immature Grans 0.01 10^3/uL (0.0-0.06); Absolute Basophil Count 0.02 10^3/uL (0.0-0.2); Absolute Eosinophil Count 0.27 10^3/uL (0.0-0.7); Absolute Lymphocyte Count 0.92 10^3/uL (1.2-3.4); Absolute Monocyte Count 0.54 10^3/uL (0.1-0.8); Absolute Neutrophil Count 4.43 10^3/uL (1.2-6.7); Basophils % 0.3; Eosinophils % 4.4; HCT 35.6 % (40.0-50.0); HGB 12.5 g/dL (13.5-17.5); Immature Grans % 0.2; Lymphocytes % 14.9; MCH 33.3 pg (27.0-33.0); MCHC 35.1 % (32.0-36.0); MCV 95 fL (80-95); MPV 8.8 fL (8.0-11.0); Monocytes % 8.7; Neutrophils % 71.5; Platelet Count 234 10^3/uL (130-400); RBC 3.75 10^6/uL (4.36-5.78); RDW 14.2 % (11.8-14.1); RDW-SD 48.7 fL; WBC 6.19 10^3/uL (4.4-10.8)
[2023-02-14] MEDS: Dexamethasone 4 MG TAB 10 MG PO (14:34)
[2023-02-14] MEDS: Albuterol/Ipratropium 3 ML UPD VIAL UPD ×3 (14:35)
[2023-02-14 14:59] LABS: D-Dimer 495 ng/mlFEU (<500)
[2023-02-14 15:05] LABS: ALT 25 U/L (16-63); AST 22 U/L (15-37); Alkaline Phosphatase 100 U/L (46-116); Anion Gap 7.4 mmol/L (3-11); BUN 15 mg/dL (7-18); Bilirubin, Total 1.4 mg/dL (0.2-1.0); CO2 31.6 mmol/L (21.0-32.0); CREATININE 1.1 mg/dL (0.70-1.30); Calcium 9.6 mg/dL (8.5-10.1); Chloride 98 mmol/L (98-107); Estimated GFR 74.96 (mL/min/1.73m2); Glucose 145 mg/dL (74-106); Magnesium 1.9 mg/dL (1.8-2.4); Potassium 3.9 mmol/L (3.5-5.1); Sodium 137 mmol/L (136-145); Total Protein 7.9 g/dL (6.4-8.2); Troponin I < 50 ng/L (<or=60)
[2023-02-14] MEDS: AZITHROMYCIN 500 MG in Normal Saline 250 ML 250 MG IVPB (15:13)
[2023-02-14 15:24] LABS: NT-proBNP 111 pg/mL (<300)
--- NOTE | 2023-02-14 16:39 | DI.VRAD_ITS ---
PROCEDURE INFORMATION: Exam: XR Chest Exam date and time: 02/14/2023 2:51 PM Age: 62 years old Clinical indication: Shortness of breath TECHNIQUE: Imaging protocol: Radiologic exam of the chest. Views: 1 view. COMPARISON: CR XR PORTABLE CHEST AP 01/19/2023 5:29 PM FINDINGS: Lungs: Unremarkable. No consolidation. Emphysema. Pleural spaces: Unremarkable. No pleural effusion. No pneumothorax. Heart/Mediastinum: Unremarkable. No cardiomegaly. Bones/joints: Nonacute right-sided clavicular fracture. IMPRESSION: No acute findings. Dictated and Authenticated by: Sameer Mitchell MD. Ordering:GATITO Moulton MD
== END 2023-02-14 17:53 | disposition home or self-care (01) ==
PROVIDERS: Emergency Provider Student in an Organized Health Care Education/Training Program; PCP Nurse Practitioner Family
DX: R06.02 Shortness of breath (principal)
CPT/HCPCS: 36415; 80053; 87637; 93005; 94640; 96365; 96367; 99285; 71045; 83735; 83880; 84484; 85025; 85379; 93010; 99284; J0456; J0696; J7620; J8540

== ENCOUNTER → 2023-03-11 03:15 | Outpatient (CLI) | payer MEDICARE, MEDICAID, SELFPAY ==
--- NOTE | 2023-03-11 09:15 | DI.CTLCSR_ITS ---
Exam(s) CT CHEST LUNG CANCER SCREEN EXAM: CT CHEST LUNG CANCER SCREEN CLINICAL HISTORY: CIGARETTE SMOKER, F17.210; LUNG NODULE, R91.8 TECHNIQUE: Imaging Protocol: Axial computed tomography images with coronal and sagittal reformatted images were created and reviewed COMPARISON: CT CT CHEST LUNG CANCER SCREEN from 03/06/2022 CR,XR XR PORTABLE CHEST AP from 01/19/2023 CR,XR XR PORTABLE CHEST AP from 02/14/2023 FINDINGS: Tracheobronchial tree: Patent where visualized. Pulmonary parenchyma: Moderately severe centrilobular emphysematous changes are present. There is a calcified granuloma in the right lower lobe. No architectural distortion. Lung Nodules: The 4 mm nodule in the left lingula is unchanged. No new pulmonary nodules are present . Mediastinum and Carlota: No dominant adenopathy or fluid collection. The esophagus is unremarkable. Thyroid gland: Unremarkable. Lymph nodes: Unremarkable. Pleura: No effusion or pneumothorax. Heart: The heart is not dilated. Coronary artery calcification is present. No pericardial effusion. Aorta: Thoracic aorta non-dilated.Atherosclerosis. Upper abdomen: Unremarkable. Soft Tissues: Unremarkable. Bones: Within normal limits. There is an old healed right clavicular fracture. There is a non acute T8 mild compression fracture deformity. IMPRESSION: Stable left lingular pulmonary nodule. No new nodules. Lung RADS Cat 2 - Benign Appearance / Behavior: Nodules with a very low likelihood of becoming a clin ically active cancer due to size or lack of growth Lung-RADS 1.0 CATEGORIES: Category 0 - Prior chest CT exam(s) being located for comparison. Category 1 - Annual screening in 12 months. No nodules or definitely benign nodules. Category 2 - Annual screening in 12 months. Benign appearance. Nodules with low likelihood of becomin g active cancer. Category 3 - 6-month follow-up. Probably benign. Short-term follow-up suggested. Nodules with low lik elihood of becoming active cancer. Category 4A - 3-month follow-up and CT/PET if >8 mm in size. Suspicious finding. Findings which requi re additional testing. Category 4B - Findings which require additional testing and tissue sampling. Suspicious finding. Category 4X - Category 3 or 4 nodules with additional features or imaging findings that increases the suspicion of malignancy. Modifier S- Potentially clinically significant finding. (Non lung cancer) RADIATION DOSE DELIVERED: Total DLP Total DLP DATA REPOSITORY: All CT scans at this facility are submitted to the National Radiology Data Registry (NRDR) Dose Index Registry (DIR) with the [employer] (A[employer]). RADIATION OPTIMIZATION: All CT scans at this facility use at least one of these dose optimization te chniques: automated exposure control; mA and/or kV adjustment per patient size (includes targeted exa ms where dose is matched to clinical indication); or iterative reconstruction.
== END ==
PROVIDERS: PCP Nurse Practitioner Family; Visit Provider Nurse Practitioner Family
DX: F17.210 Nicotine dependence, cigarettes, uncomplicated (principal); Z12.2 Encounter for screening for malignant neoplasm of respiratory organs; R91.1 Solitary pulmonary nodule
CPT/HCPCS: 71271

== ENCOUNTER 2023-04-10 09:16 | Emergency (ER) | payer MEDICARE, MEDICAID, SELFPAY ==
[2023-04-10 09:34] VITALS: BP 142/85; PULSE 78; RESP 18; TEMP 36.4; O2SAT 95
--- NOTE | 2023-04-10 09:45 | DI.RAD_ITS ---
Exam(s) XR ELBOW LT COMPLETE EXAM: XR ELBOW LT COMPLETE CLINICAL HISTORY: internal pain, unknown mechanism. TECHNIQUE: 2D digital imaging was performed. COMPARISON: CR,XR XR ELBOW LT LIMITED from 07/18/2019 FINDINGS: 3 views No evidence of fracture nor joint effusion.. Mild but no prominent swelling at the olecranon bursa. Radial head and neck appear unremarkable. Epicondyles unremarkable. No degenerative changes in the joint. Bone density normal. No osseous lesions. IMPRESSION: No significant osseous findings in the elbow. DATA REPOSITORY: RADIATION DOSE DELIVERED:
--- NOTE | 2023-04-10 09:45 | DI.RAD_ITS ---
Exam(s) XR SHOULDER LT COMPLETE 2+V EXAM: XR SHOULDER LT COMPLETE 2+V CLINICAL HISTORY: anterior pain. TECHNIQUE: 2D digital imaging was performed. COMPARISON: CR,XR XR SHOULDER RT COMPLETE 2+V from 01/29/2022 FINDINGS: Five views No evidence of fracture or dislocation nor abnormal soft tissue calcifications. No degenerative narr owing of the glenohumeral joint. Mild degenerative change in the AC joint. Subacromial space is not diminished. No significant osseous lesions. Bone density is age-appropriate. Ipsilateral clavicle appears intact IMPRESSION: No significant osseous findings in the left shoulder. DATA REPOSITORY: RADIATION DOSE DELIVERED:
--- NOTE | 2023-04-10 09:49 | ED.GENADUL_ITS ---
Discharge Plan Disposition Patient Disposition: Home Condition: Good Discharge Details Clinical Impression: Acute pain of left shoulder, Elbow pain, left Primary Care Provider: Milagro Sanchez ED Provider: Carlota Simms Home Meds and New Rx's Prescriptions: Continued nortriptyline 25 MG capsule 50 mg PO HS acetaminophen 500 mg Tablet 1,000 mg PO PRN PRN lisinopril 5 mg tablet 5 mg PO DAILY AM Patient Comments: TAKE ONE TABLET BY MOUTH EVERY DAY (DME) nebulizer and compressor [Comp-Air Nebulizer Compressor] Device MISCELLANEOUS Patient Comments: USE 1 DEVICE DIRECTED EVERY 4 HOURS WHILE AWAKE NEEDED Breztri Aerosphere 160-9-4.8 mcg/actuation HFA aerosol inhaler 2 inh INHALATION BID Patient Comments: INHALE TWO PUFFS BY MOUTH TWICE A DAY methocarbamol 500 mg tablet 500 mg PO Q6H PRN (Reason: muscle spasm) Qty: 14 0RF Patient Comments: PT states not taking ML 02/14/23 propranolol 80 mg tablet 80 mg PO BID Patient Comments: PT states he takes 40 mg twice daily albuterol sulfate [Ventolin HFA] 90 mcg/actuation HFA aerosol inhaler 1 puff INHALATION DAILY PRNQty: 8.5 0RF sucralfate [Carafate] 1 gram tablet 1 g PO BID Qty: 20 0RF Hold Instructions: Pt Stopped/Never Started Patient Comments: Pt states he never took this medication - ML 02/14/23 prednisone 20 mg tablet 40 mg PO ONCE Qty: 10 0RF Hold Instructions: Pt Stopped/Never Started Patient Comments: PT states not taking ML 02/14/23 doxycycline hyclate 100 mg tablet 100 mg PO BID Qty: 20 0RF Hold Instructions: Pt Stopped/Never Started Patient Comments: PT states not taking ML 02/14/23 albuterol sulfate 1.25 mg/3 mL solution for nebulization 1.25 mg inhalation QID PRNQty: 75 0RF atorvastatin 40 mg tablet 40 mg PO DAILY Patient Comments: TAKE ONE TABLET BY MOUTH EVERY DAY Discharge Instructions Instructions: Shoulder Pain (ED) Additional Instructions: Your x-rays are reassuring here today. However, with your previous diagnosis of left rotator cuff injury, I am concerned that this may be where significant med of your pain is coming from. Please encourage rest, ice, elevation. Tylenol and ibuprofen as needed for discomfort. Please take as directed on the packaging and do not exceed the daily dosing. I have referred you to orthopedics, please call the number listed below to schedule follow-up appointment. Try to avoid overhead activities as this may increase your discomfort but do work on gentle range of motion to help prevent any stiffness in the shoulder. If you develop any new or worsening symptoms please seek care urgently once again. Referrals: Paras Marino MD [ [facility] STAFF PHYSICIAN] - Medical Decision Making Patient is a pleasant RHD 62 year old male who woke with left shoulder and left elbow pain this AM. Was seen by his PCP years ago for left shoulder pain, at that time concern for rotator cuff injury. He denies recent overuse. No trauma or fall. Denies numbness/tingling. No CP/SOB. Symptoms not worsened with exertion. Pain worse with movements of the left upper extremity. No C-spine tenderness. No pain with movement of the neck. On exam, patient appears nontoxic. 2+ distal pulses. Pain is maximal over the anterior and lateral shoulder. It radiates to the elbow as well. Worse with certain positions although defining these exact positions can be difficult for the patient. No erythema, warmth, swelling. Full range of motion. Pain with Neer and Pederson. Forward elevation is limited to the contralateral side as well as external rotation. His exam is much more musculoskeletal in nature given the positional discomfort. He has had issues with his rotator cuff as well as the lateral epicondyle in the past. He is not having any exertional symptoms, no chest pain or increased shortness of breath so do not see need for ACS evaluation at this time. No indication of infection at this point. Low suspicion for bony abnormality. However, given the patient's history I do feel that imaging to evaluate for this would be appropriate. Discussed with the patient who is in agreement. Also offered analgesics. Patient states that he would use his neb at home at this time, will give to him enow. FINDINGS: Five views No evidence of fracture or dislocation nor abnormal soft tissue calcifications. No degenerative narrowing of the glenohumeral joint. Mild degenerative change in the AC joint. Subacromial space is not diminished. No significant osseous lesions. Bone density is age-appropriate. Ipsilateral clavicle appears intact IMPRESSION: No significant osseous findings in the left shoulder. FINDINGS: 3 views No evidence of fracture nor joint effusion.. Mild but no prominent swelling at the olecranon bursa. Radial head and neck appear unremarkable. Epicondyles unremarkable. No degenerative changes in the joint. Bone density normal. No osseous lesions. IMPRESSION: No significant osseous findings in the elbow. Discussed with patient. After APAP and NSAID, he is moving much more easily. Medically, the patient has had issues with his rotator cuff as well as with lateral epicondylitis. He has not point tender over the epicondyles, I believe his pain is more from the shoulder radiating down towards the elbow. Will refer to orthopedics. Advised him to continue with regimen help with discomfort. Encouraged rest, ice, elevation. Strict return precautions discussed. Advised that he try to abstain from any overhead lifting. He will call orthopedics to schedule follow-up appointment. All of his questions and concerns were addressed and he is in agreement this plan HPI General Date/Time Provider Initiated Documentation: 04/10/23 09:49 . Limitations to Documentation: no limitations . Information obtained by: patient, RN notes reviewed and old records reviewed . History of Present Illness 62 year old M presents to the emergency department with the chief complaint of Left shoulder and left elbow pain, described as severe, Quality is described as stabbing and aching, and is localized to the left and upper extremity. Patient reports no radiation. Patient started experiencing this day(s) and it has been constant. Immobilization improves symptom(s), Movement worsens symptoms . Patient notes no other symptoms.. Patient did receive the following treatments prior to arrival, none Related Data Home Medications Medication Instructions Recorded Confirmed nortriptyline 25 mg capsule 50 mg PO HS 07/16/14 04/10/23 acetaminophen 500 mg tablet 1,000 mg PO PRN PRN 03/07/18 04/10/23 albuterol sulfate 90 mcg/actuation 1 puff inhalation DAILY PRN #8.5 02/01/20 04/10/23 aerosol inhaler (Ventolin HFA) grams propranolol 80 mg tablet 80 mg PO BID 02/01/20 04/10/23 lisinopril 5 mg tablet 5 mg PO DAILY AM 04/15/21 04/10/23 nebulizer and compressor (Comp-Air 04/15/21 02/14/23 Nebulizer Compressor) budesonide 160 mcg-glycopyr 9 2 inh inhalation BID 02/01/22 04/10/23 mcg-formot 4.8 mcg/actuation HFA inhaler (Breztri Aerosphere) methocarbamol 500 mg tablet 500 mg PO Q6H PRN muscle spasm #14 02/01/22 04/10/23 tabs sucralfate 1 gram tablet (Carafate) 1 g PO BID #20 tabs 07/12/22 04/10/23 albuterol sulfate 1.25 mg/3 mL 1.25 mg (3 mL) inhalation QID PRN 01/19/23 04/10/23 solution for nebulization #75 mL doxycycline hyclate 100 mg tablet 100 mg PO BID #20 tabs 01/19/23 04/10/23 prednisone 20 mg tablet 40 mg (2 x 20 mg) PO ONCE #10 tabs 01/19/23 04/10/23 atorvastatin 40 mg tablet 40 mg PO DAILY 02/14/23 04/10/23 Previous Rx's Medication Instructions Recorded albuterol sulfate 90 mcg/actuation 1 puff inhalation DAILY PRN #8.5 02/01/20 aerosol inhaler (Ventolin HFA) grams methocarbamol 500 mg tablet 500 mg PO Q6H PRN muscle spasm #14 02/01/22 tabs sucralfate 1 gram tablet (Carafate) 1 g PO BID #20 tabs 07/12/22 albuterol sulfate 1.25 mg/3 mL 1.25 mg (3 mL) inhalation QID PRN 01/19/23 solution for nebulization #75 mL doxycycline hyclate 100 mg tablet 100 mg PO BID #20 tabs 01/19/23 prednisone 20 mg tablet 40 mg (2 x 20 mg) PO ONCE #10 tabs 01/19/23 Allergies Allergy/AdvReac Type Severity Reaction Status Date / Time aspirin Allergy Intermediate Skin Rash Verified 02/14/23 14:05 crab Allergy Anaphylaxsi Verified 02/14/23 14:05 s hydrocodone [Hydrocodone] AdvReac Severe dizzy and Verified 02/14/23 14:05 nausea lobster Allergy Anaphylaxsi Uncoded 02/14/23 14:05 s General Stated Complaint: Orthopedic BRAEDEN: 3 Review of Systems Constitutional Constitutional: Reports as per HPI, Denies chills, Denies fever(s), Denies headache(s) and Denies weakness ENT Ears, Nose, Mouth, and Throat: Denies headache(s) Cardiovascular Cardiovascular: Reports as per HPI, Denies chest pain, Denies chest pain at rest, Denies chest pain with activity, Denies dyspnea and Denies dyspnea on exertion Respiratory Respiratory: Reports as per HPI, Denies cough, Denies dyspnea and Denies dyspnea on exertion Musculoskeletal Musculoskeletal: Reports as per HPI and Denies tingling Integumentary/Breasts Skin/Breast: Reports as per HPI, Denies rash and Denies wounds Neurologic Neurologic: Reports as per HPI, Denies headache(s), Denies tingling, Denies paresthesias and Denies weakness PFS All Active Problems (Updated 04/10/23 @ 11:27 by VIRGIE Dominguez) Elbow pain, left (Acute) Acute pain of left shoulder (Acute) Epicondylitis, lateral, left (Acute) Shortness of breath (Acute) COPD exacerbation (Acute) COVID (Acute) Right lateral epicondylitis (Acute) Medical History (Updated 04/10/23 @ 11:27 by VIRGIE Dominguez) COPD (chronic obstructive pulmonary disease) Obstructive sleep apnea Surgical History History of appendectomy Social History Smoking/Tobacco Use Status: Current every day Tobacco Type: cigarettes Smoking risk assessment performed?: Yes Alcohol Intake: never Drug use: Never Substance use type: does not use Housing: apartment Do you feel safe at home: Yes Do you feel safe in your relationship?: Yes Exam Const General: cooperative, healthy appearing, comfortable, no acute distress, well developed and well groomed Nutritional Appearance: average body habitus and well nourished Orientation: alert and awake Chest Chest: normal inspection of the chest, normal palpation of entire chest wall, no crepitus and no tenderness Resp Effort & Inspection: normal respiratory effort, able to speak in complete sentences and no respiratory distress Auscultation: clear to auscultation bilaterally Cardio Rate: regular rate Rhythm: regular rhythm Heart Sounds: S1 normal and S2 normal Skin General skin exam: no rashes or lesions noted Lesions: no lesions Rashes: no rashes Trauma: no lacerations or abrasions Neuro General: patient alert and patient awake Cognition: normal cognition Speech: speech normal Gait: normal gait Motor: muscle tone normal throughout Sensory Exam: no sensory deficits noted Extrem Shoulder/upper arm images: 2 1. Area of maximal discomfort. Pain radiating from this area to the left elbow. He is 2+ distal pulses. Sensation is intact. Normal axillary nerve testing. No appreciable erythema, warmth, swelling. No rash, patient does have multiple areas that have been picked raw fairly diffusely. Good range of motion but pain does increase with ROM. No pain over clavicle or AC joint. No pain over the biceps tenden. Full ROM of elbow, no focal tenderness, weakness or epicondyle pain. Psych Appearance: grossly normal and well kempt Mental Status: mental status grossly normal Speech and Movement: speech and movement normal Course Vital Signs Vital signs: Vital Signs Temperature 36.4 C 04/10/23 09:34 Pulse 78 04/10/23 09:34 Respiratory Rate 18 04/10/23 09:34 Blood Pressure 142/85 H 04/10/23 09:34 Pulse Oximetry 95 04/10/23 09:34 Temperature 36.4 C 04/10/23 09:34 Temperature Source Oral 04/10/23 09:34 Pulse 78 04/10/23 09:34 Respiratory Rate 18 04/10/23 09:34 Blood Pressure 142/85 H 04/10/23 09:34 Pulse Oximetry 95 04/10/23 09:34 Oxygen Delivery Method Room Air 04/10/23 09:34 Oxygen Flow Rate 0 04/10/23 09:34 Pain Level 6 04/10/23 09:34 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
[2023-04-10] MEDS: Ibuprofen 600 MG TAB PO (10:04)
[2023-04-10] MEDS: Acetaminophen 325 MG TAB 650 MG PO (10:05)
[2023-04-10 10:33] VITALS: PULSE 91; RESP 20; O2SAT 100
[2023-04-10 11:31] VITALS: RESP 2; RESP 5; O2SAT 94
[2023-04-10] MEDS: Albuterol/Ipratropium 3 ML UPD VIAL UPD (11:31)
[2023-04-10 11:44] VITALS: BP 114/75; PULSE 71; RESP 16; O2SAT 95
== END 2023-04-10 11:51 | disposition home or self-care (01) ==
PROVIDERS: Emergency Provider Physician Assistant; PCP Nurse Practitioner Family
DX: M25.512 Pain in left shoulder (principal); M25.522 Pain in left elbow; J44.9 Chronic obstructive pulmonary disease, unspecified; F17.210 Nicotine dependence, cigarettes, uncomplicated
CPT/HCPCS: 94640; 99283; 73030; 73080; J7620

== ENCOUNTER 2023-04-24 18:20 | Emergency (ER) | payer MEDICARE, MEDICAID, SELFPAY ==
--- NOTE | 2023-04-24 | DI.RAD_ITS ---
Exam(s) XR CHEST 2V PA LATERAL EXAM: XR CHEST 2V PA LATERAL CLINICAL HISTORY: cough. TECHNIQUE: 2D digital imaging was performed. COMPARISON: CR XR RIBS RT W PA LAT CHEST from 02/01/2022 CR,XR XR CHEST 2V PA LATERAL from 07/13/2022 CR,XR XR PORTABLE CHEST AP from 01/19/2023 CR,XR XR PORTABLE CHEST AP from 02/14/2023 FINDINGS: 2 views: Heart size is normal. The mediastinum is not widened. Lungs are clear. No infiltrates nor pleural effusions. Hyperinflation again noted. On the lateral view there is a E 25 percent compression fracture of a midthoracic vertebra. This was not evident on lateral chest x-ray of June 2022. IMPRESSION: No acute pulmonary findings. Approximately 25 percent compression fracture of a midthoracic vertebra noted, age indeterminate but more evident than on prior chest x-rays. DATA REPOSITORY: RADIATION DOSE DELIVERED:
[2023-04-24 18:29] VITALS: BP 121/87; PULSE 81; RESP 20; TEMP 36.6; O2SAT 98
--- NOTE | 2023-04-24 19:10 | ED.GENADUL_ITS ---
Discharge Plan Disposition Patient Disposition: Home Discharge Details Clinical Impression: COPD exacerbation Primary Care Provider: Milagro Sanchez ED Provider: Parmjit Gudino Home Meds and New Rx's Prescriptions: New levofloxacin 750 mg tablet 750 mg PO DAILY Qty: 7 0RF prednisone 20 mg tablet 60 mg PO DAILY 4 Days Qty: 12 0RF benzonatate 200 mg capsule 200 mg PO BID-TID PRNQty: 20 0RF Continued nortriptyline 25 MG capsule 50 mg PO HS acetaminophen 500 mg Tablet 1,000 mg PO PRN PRN lisinopril 5 mg tablet 5 mg PO DAILY AM Patient Comments: TAKE ONE TABLET BY MOUTH EVERY DAY (DME) nebulizer and compressor [Comp-Air Nebulizer Compressor] Device MISCELLANEOUS Patient Comments: USE 1 DEVICE DIRECTED EVERY 4 HOURS WHILE AWAKE NEEDED Breztri Aerosphere 160-9-4.8 mcg/actuation HFA aerosol inhaler 2 inh INHALATION BID Patient Comments: INHALE TWO PUFFS BY MOUTH TWICE A DAY propranolol 80 mg tablet 80 mg PO BID Patient Comments: PT states he takes 40 mg twice daily sucralfate [Carafate] 1 gram tablet 1 g PO BID Qty: 20 0RF Hold Instructions: Pt Stopped/Never Started Patient Comments: Pt states he never took this medication - ML 02/14/23 atorvastatin 40 mg tablet 40 mg PO DAILY Patient Comments: TAKE ONE TABLET BY MOUTH EVERY DAY ipratropium-albuterol 0.5 mg-3 mg(2.5 mg base)/3 mL solution for nebulization INHALATION Patient Comments: INHALE THE CONTENTS OF ONE VIAL VIA NEBULIZER EVERY 4 TO 6 HOURS NEEDED Discharge Instructions Instructions: COPD (Chronic Obstructive Pulmonary Disease) (ED) Additional Instructions: Prednisone, Levaquin, Teserick Kim as directed. Be sure to be using your nebulizer machine at home. Please watch for new or worsening symptoms and return to the ER for any concerns. Lastly, please contact your primary care provider tomorrow to discuss your ER visit and need for outpatient reevaluation. Discharge Data Discharge Date/Time-TO BE ENTERED AT DEPARTURE: 04/24/23 21:13 Medical Decision Making 62-year-old gentleman with history of COPD, current smoker, presents for 2-3 days of mostly dry cough, chest pain and shortness of breath with coughing. No chest pain or shortness of breath at rest. Denies recent sick contacts. Immunizations up-to-date. Clinically he appears well, nontoxic, no evidence of fever, hypoxia, respiratory distress. Pulse in the 70s. Plan to provide duo and albuterol neb. Obtain chest x-ray and test for flu, RSV, COVID. DuoNeb and albuterol neb provided. Upon reevaluation patient reports significant improvement of his respiratory status. Lungs are clear to auscultation. O2 sat is 98% on room air. Chest x-ray reviewed and negative Flu, RSV, COVID-negative Single dose of 60 mg prednisone given now for COPD exacerbation. Patient provided with prescription of levofloxacin x 7 days given his history of COPD, current smoker, sometimes productive cough. Prednisone burst of 60 mg x additional 4 days, and Tessalon Perles prescription provided.. Discussed the importance of his nebulizer and rescue inhaler as directed. Patient has no additional questions or concerns discomfortable with this plan. Encouraged to return to the ER for new or worsening symptoms. Standard discharge and return precautions were provided. Patient understands, is agreeable to this plan, and has no additional questions or concerns upon discharge. This documentation was generated using [employer] system, please disregard any oddities of phrase or misspellings. Medical Records Medical records reviewed: Yes I reviewed the patient's medical records. Imaging Data Radiologic Study: Attestation: I personally reviewed and interpreted this imaging study as follows: Imaging: X-Ray My impression: NAD Radiologist's impression: No acute findings Lab Data Lab results reviewed: Yes I reviewed the patient's lab results. Labs: Laboratory Tests Range/Units 04/24/23 19:02 COVID-19 Source NASOPHARYNX SARS-CoV-2 (PCR) (Negative) Negative Influenza Type A (PCR) (Negative) Negative Influenza Type B (PCR) (Negative) Negative RSV (PCR) (Negative) Negative HPI General Mode of arrival: ambulatory . Date/Time Provider Initiated Documentation: 04/24/23 18:38 . Limitations to Documentation: no limitations . Information obtained by: patient . HPI Narrative: 62-year-old gentleman with past medical history of COPD, current smoker, presenting for 2-3-day history of mostly dry cough, occasionally productive yellow sputum. Reports that he has chest wall pain with coughing. Denies fever or chest pain at rest. Denies shortness of breath at rest but states that he does feel short of breath after a coughing episode. He is using his rescue inhaler and neb machine as directed. Denies recent sick contacts. Does report that his immunizations are up-to-date. Related Data Home Medications Medication Instructions Recorded Confirmed nortriptyline 25 mg capsule 50 mg PO HS 07/16/14 04/24/23 acetaminophen 500 mg tablet 1,000 mg PO PRN PRN 03/07/18 04/24/23 propranolol 80 mg tablet 80 mg PO BID 02/01/20 04/24/23 lisinopril 5 mg tablet 5 mg PO DAILY AM 04/15/21 04/24/23 nebulizer and compressor (Comp-Air 04/15/21 02/14/23 Nebulizer Compressor) budesonide 160 mcg-glycopyr 9 2 inh inhalation BID 02/01/22 04/24/23 mcg-formot 4.8 mcg/actuation HFA inhaler ([employer]) sucralfate 1 gram tablet (Carafate) 1 g PO BID #20 tabs 07/12/22 04/24/23 atorvastatin 40 mg tablet 40 mg PO DAILY 02/14/23 04/24/23 benzonatate 200 mg capsule 200 mg PO BID-TID PRN #20 caps 04/24/23 ipratropium 0.5 mg-albuterol 3 mg ml inhalation 04/24/23 (2.5 mg base)/3 mL nebulization soln levofloxacin 750 mg tablet 750 mg PO DAILY #7 tabs 04/24/23 prednisone 20 mg tablet 60 mg (3 x 20 mg) PO DAILY 4 days 04/24/23 #12 tabs Previous Rx's Medication Instructions Recorded sucralfate 1 gram tablet (Carafate) 1 g PO BID #20 tabs 07/12/22 benzonatate 200 mg capsule 200 mg PO BID-TID PRN #20 caps 04/24/23 levofloxacin 750 mg tablet 750 mg PO DAILY #7 tabs 04/24/23 prednisone 20 mg tablet 60 mg (3 x 20 mg) PO DAILY 4 days 04/24/23 #12 tabs Allergies Allergy/AdvReac Type Severity Reaction Status Date / Time aspirin Allergy Intermediate Skin Rash Verified 02/14/23 14:05 crab Allergy Anaphylaxsi Verified 02/14/23 14:05 s hydrocodone [Hydrocodone] AdvReac Severe dizzy and Verified 02/14/23 14:05 nausea lobster Allergy Anaphylaxsi Uncoded 02/14/23 14:05 s General Stated Complaint: RespSymp BRAEDEN: 4 Review of Systems Constitutional Constitutional: Denies fever(s) Cardiovascular Cardiovascular: Reports chest pain (With coughing) and Reports dyspnea (With coughing) Respiratory Respiratory: Reports cough and Reports dyspnea (With coughing) Gastrointestinal Gastrointestinal: Denies abdominal pain, Denies nausea and Denies vomiting Musculoskeletal Musculoskeletal: Denies back pain Integumentary/Breasts Skin/Breast: Denies rash PFSH All Active Problems COPD exacerbation (Acute) Elbow pain, left (Acute) Acute pain of left shoulder (Acute) Epicondylitis, lateral, left (Acute) Shortness of breath (Acute) COPD exacerbation (Acute) COVID (Acute) Right lateral epicondylitis (Acute) Medical History COPD (chronic obstructive pulmonary disease) Obstructive sleep apnea Surgical History History of appendectomy Social History Smoking/Tobacco Use Status: Current every day Tobacco Type: cigarettes Smoking risk assessment performed?: Yes Alcohol Intake: never Drug use: Never Substance use type: does not use Housing: apartment Do you feel safe at home: Yes Do you feel safe in your relationship?: Yes Exam Const General: cooperative, healthy appearing, comfortable and no acute distress HENOH Head: normal to inspection Mouth: moist mucous membranes Neck Neck: normal visual inspection, no meningeal signs and supple Resp Effort & Inspection: normal respiratory effort, able to speak in complete sentences and cough Quality of cough: dry Auscultation: diminished lung sounds bilaterally and wheezes scattered wheezes Cardio Rate: regular rate Rhythm: regular rhythm GI Palpation: soft and nontender Skin General skin exam: no rashes or lesions noted Neuro General: patient alert Cognition: normal cognition Speech: speech normal Gait: normal gait Extrem General: normal to inspection, full ROM, no pedal edema and no calf tenderness Course Vital Signs Vital signs: Vital Signs Temperature 36.6 C 04/24/23 18:29 Pulse 81 04/24/23 18:29 Respiratory Rate 20 04/24/23 18:29 Blood Pressure 121/87 04/24/23 18:29 Pulse Oximetry 98 04/24/23 18:29 Temperature 36.6 C 04/24/23 18:29 Pulse 81 04/24/23 18:29 Respiratory Rate 20 04/24/23 18:29 Blood Pressure 121/87 04/24/23 18:29 Pulse Oximetry 98 04/24/23 18:29 Oxygen Delivery Method Room Air 04/24/23 18:29 Oxygen Flow Rate 0 04/24/23 18:29
[2023-04-24 19:17] VITALS: BP 142/74; PULSE 82; RESP 16; TEMP 36.7; O2SAT 94
[2023-04-24] MEDS: Albuterol/Ipratropium 3 ML UPD VIAL UPD (19:19)
[2023-04-24] MEDS: Albuterol 2.5 MG/3 ML INH SOLN VIAL UPD (19:19)
[2023-04-24 19:47] LABS: COVID-19 PCR Negative (Negative); Influenza A PCR Negative (Negative); Influenza B PCR Negative (Negative); RSV PCR Negative (Negative)
[2023-04-24 19:48] LABS: Source NASOPHARYNX
--- NOTE | 2023-04-24 20:14 | DI.VRAD_ITS ---
PROCEDURE INFORMATION: Exam: XR Chest Exam date and time: 04/24/2023 7:38 PM Age: 62 years old Clinical indication: Cough TECHNIQUE: Imaging protocol: Radiologic exam of the chest. Views: 2 views. COMPARISON: CT CHEST LUNG CANCER SCREEN 03/11/2023 9:11 AM FINDINGS: Lungs: Unremarkable. No consolidation. Pleural spaces: Unremarkable. No pleural effusion. No pneumothorax. Heart/Mediastinum: Unremarkable. No cardiomegaly. Bones/joints: Unremarkable. IMPRESSION: No acute findings. Dictated and Authenticated by: Hernan Maria MD. Ordering:OLEG Parnell MD
[2023-04-24 21:15] VITALS: BP 136/62; PULSE 74; RESP 12; O2SAT 98
[2023-04-24] MEDS: predniSONE 20 MG TAB 60 MG PO (21:15)
== END 2023-04-24 21:13 | disposition home or self-care (01) ==
PROVIDERS: Emergency Provider Physician Assistant; PCP Nurse Practitioner Family
DX: R05.9 Cough, unspecified (principal); R07.9 Chest pain, unspecified; R06.02 Shortness of breath; J44.1 Chronic obstructive pulmonary disease with (acute) exacerbation; Z72.0 Tobacco use; Z79.899 Other long term (current) drug therapy
CPT/HCPCS: 87637; 94640; 99284; 71046; J7512; J7613; J7620

== ENCOUNTER 2023-10-20 17:21 | Inpatient (IN) | payer MEDICARE, SELFPAY ==
[2023-10-20] VITALS (59 sets, daily range): BP systolic 101–201; BP diastolic 75–159; PULSE 86–115; RESP 5–30; TEMP 36.4–36.7; O2SAT 91–98
--- NOTE | 2023-10-20 17:00 | RT.EKG_ITS ---
APPROVED REPORT Exam: Resting ECG Reason for Exam: difficulty breathing Patient Location: E HR:107 bpm ECG Measurements Heart Rate 107 AXIS UT [id number] P [id number] QRSd 99 QRS 107 QT 342 T 63 QTc 456 Conclusion Atrial fibrillation...V-rate 106-108, irreg A-activity Right axis deviation...QRS axis ( 91,269) sinus rhtyhm, norml axis, normla intervals, non ischemic
--- NOTE | 2023-10-20 17:30 | DI.RAD_ITS ---
Exam(s) XR PORTABLE CHEST AP EXAM: XR PORTABLE CHEST AP CLINICAL HISTORY: copd resp distress TECHNIQUE: 2D digital imaging was performed. COMPARISON: CR,XR XR CHEST 2V PA LATERAL from 04/24/2023 FINDINGS: LUNGS: Emphysematous and mild fibrotic changes, otherwise clear. No pleural abnormality seen. HEART: Normal size. AORTA: Normal diameter. BONES: Unremarkable for age. Soft tissues: Unremarkable. IMPRESSION: No acute findings. DATA REPOSITORY: RADIATION DOSE DELIVERED:
[2023-10-20] MEDS: Albuterol/Ipratropium 3 ML UPD VIAL (17:35)
[2023-10-20 17:36] LABS: Abs Immature Grans 0.01 10^3/uL (0.0-0.06); Absolute Basophil Count 0.01 10^3/uL (0.0-0.2); Absolute Eosinophil Count 0.04 10^3/uL (0.0-0.7); Absolute Neutrophil Count 4.36 10^3/uL (1.2-6.7); Basophils % 0.2 %; Eosinophils % 0.6 %; HCT 39.5 % (40.0-50.0); HGB 13.8 g/dL (13.5-17.5); Immature Grans % 0.2 %; Lymphocytes % 21.1 %; MCH 33.1 pg (27.0-33.0); MCHC 34.9 % (32.0-36.0); MCV 95 fL (80-95); MPV 9.3 fL (8.0-11.0); Monocytes % 12.1 %; Neutrophils % 65.8 %; Platelet Count 201 10^3/uL (130-400); RBC 4.17 10^6/uL (4.36-5.78); RDW 13.7 % (11.8-14.1); RDW-SD 47.8 fL; WBC 6.62 10^3/uL (4.4-10.8)
[2023-10-20] MEDS: Albuterol 2.5 MG/3 ML INH SOLN VIAL (17:36)
--- NOTE | 2023-10-20 17:37 | W.ED.GENAD ---
Discharge Plan Disposition Patient Disposition: Admit to [facility] Condition: Serious Discharge Details Chief Complaint: RespSymp Clinical Impression: COPD with exacerbation Primary Care Provider: Milagro Sanchez ED Provider: Joao Rosario Home Meds and New Rx's Prescriptions: No Action nortriptyline 25 MG capsule 50 mg PO HS acetaminophen 500 mg Tablet 1,000 mg PO PRN PRN lisinopril 5 mg tablet 5 mg PO DAILY AM Patient Comments: TAKE ONE TABLET BY MOUTH EVERY DAY (DME) nebulizer and compressor [Comp-Air Nebulizer Compressor] Device MISCELLANEOUS Patient Comments: USE 1 DEVICE DIRECTED EVERY 4 HOURS WHILE AWAKE NEEDED Breztri Aerosphere 160-9-4.8 mcg/actuation HFA aerosol inhaler 2 inh INHALATION BID Patient Comments: INHALE TWO PUFFS BY MOUTH TWICE A DAY propranolol 80 mg tablet 80 mg PO BID Patient Comments: PT states he takes 40 mg twice daily sucralfate [Carafate] 1 gram tablet 1 g PO BID Qty: 20 0RF Hold Instructions: Pt Stopped/Never Started Patient Comments: Pt states he never took this medication - ML 02/14/23 atorvastatin 40 mg tablet 40 mg PO DAILY Patient Comments: TAKE ONE TABLET BY MOUTH EVERY DAY ipratropium-albuterol 0.5 mg-3 mg(2.5 mg base)/3 mL solution for nebulization INHALATION Patient Comments: INHALE THE CONTENTS OF ONE VIAL VIA NEBULIZER EVERY 4 TO 6 HOURS NEEDED levofloxacin 750 mg tablet 750 mg PO DAILY Qty: 7 0RF benzonatate 200 mg capsule 200 mg PO BID-TID PRNQty: 20 0RF HPI General Date/Time Provider Initiated Documentation: 10/20/23 17:27. HPI Narrative: 63-year-old male history of COPD presents with shortness of breath since this morning, was given 2 DuoNebs and route as well as 125 mg of Solu-Medrol by EMS Related Data Home Medications Medication Instructions Recorded Confirmed nortriptyline 25 mg capsule 50 mg PO HS 07/16/14 04/24/23 acetaminophen 500 mg tablet 1,000 mg PO PRN PRN 03/07/18 04/24/23 propranolol 80 mg tablet 80 mg PO BID 02/01/20 04/24/23 lisinopril 5 mg tablet 5 mg PO DAILY AM 11/20/21 11/29/23 nebulizer and compressor (Comp-Air 04/15/21 02/14/23 Nebulizer Compressor) budesonide 160 mcg-glycopyr 9 2 inh inhalation BID 02/01/22 04/24/23 mcg-formot 4.8 mcg/actuation HFA inhaler (Flare3dztri Aerosphere) sucralfate 1 gram tablet (Carafate) 1 g PO BID #20 tabs 07/12/22 04/24/23 atorvastatin 40 mg tablet 40 mg PO DAILY 02/14/23 04/24/23 benzonatate 200 mg capsule 200 mg PO BID-TID PRN #20 caps 04/24/23 ipratropium 0.5 mg-albuterol 3 mg ml inhalation 04/24/23 (2.5 mg base)/3 mL nebulization soln levofloxacin 750 mg tablet 750 mg PO DAILY #7 tabs 04/24/23 Previous Rx's Medication Instructions Recorded sucralfate 1 gram tablet (Carafate) 1 g PO BID #20 tabs 07/12/22 benzonatate 200 mg capsule 200 mg PO BID-TID PRN #20 caps 04/24/23 levofloxacin 750 mg tablet 750 mg PO DAILY #7 tabs 04/24/23 Allergies Allergy/AdvReac Type Severity Reaction Status Date / Time aspirin Allergy Intermediate Skin Rash Verified 10/20/23 18:27 crab Allergy Anaphylaxsi Verified 10/20/23 18:27 s hydrocodone [Hydrocodone] AdvReac Severe dizzy and Verified 10/20/23 18:27 nausea lobster Allergy Anaphylaxsi Uncoded 10/20/23 18:27 s General Stated Complaint: RespSymp BRAEDEN: 2 Review of Systems Narrative: Review of Systems Constitutional: negative Eyes: negative ENT: negative Cardiovascular: negative Respiratory: Shortness of breath Gastrointestinal: negative : negative Musculoskeletal: negative Skin: negative Neurologic: negative Psych: negative Exam Narrative Exam Narrative: Physical Examination General: alert, awake, cooperative, respiratory distress HEENT: normocephalic, atraumatic; PERRL, EOM intact, conjunctiva normal; no nasal discharge; moist mucous membranes, oral and pharyngeal mucosa normal, tolerating secretions Neck: supple, trachea midline; full ROM Chest: normal to inspection Respiratory: Tachypnea, speaking in short sentences, tripoding, quiet lung kingsley bilaterally Cardiac: Tachycardia, regular rhythm, S1S2 intact, no murmurs rubs or gallops GI: abdomen soft, non-tender, non-distended; no palpable mass or hepatosplenomegaly Skin: no lesions, rashes or trauma appreciated Neuro: AAOx3, normal speech, moving all extremities Extremities: No peripheral edema Psych: Appropriate mood and affect Course Vital Signs Vital signs: Vital Signs Temperature 36.4 C L 10/20/23 17:19 Pulse 106 H 10/20/23 17:19 Respiratory Rate 24 10/20/23 17:19 Blood Pressure 170/121 H 10/20/23 17:19 Pulse Oximetry 91 L 10/20/23 17:19 Temperature 36.4 C L 10/20/23 17:19 Temperature Source Skin 10/20/23 17:19 Pulse 99 H 10/20/23 17:35 Respiratory Rate 25 H 10/20/23 17:35 Respiratory Effort Short of Breath, Accessory Muscle Use, Incrsd Work of Breathing 10/20/23 17:28 Respiratory Depth Retractive 10/20/23 17:28 Blood Pressure 170/121 H 10/20/23 17:19 Pulse Oximetry 98 10/20/23 17:35 Oxygen Delivery Method Nasal Cannula 10/20/23 17:35 Oxygen Flow Rate 2 10/20/23 17:35 Medical Decision Making 63-year-old male history of COPD presents in respiratory distress brought in by EMS, tripoding tachypneic quiet lung kingsley bilaterally, speaking in short sentences, high clinical sufficient for COPD exacerbation, respiratory called to bedside to initiate BiPAP however patient did not tolerate due to discomfort from air pressure, currently on nasal cannula and receiving third DuoNeb, given Solu-Medrol and route, magnesium 1 g hanging, portable chest x-ray has been ordered, saturating mid 90s on supplemental O2. Will closely monitor respiratory status consider anxiolysis in the form of ketamine to assist BiPAP if not improving or any signs of deterioration. Consider viral respiratory illness versus pneumonia lower suspicion for CHF PE or ACS. 18: 52 patient continues to refuse BiPAP despite retractions and tachypnea. Counseled patient at length at bedside with regards to therapeutic options such as ketamine to assist noninvasive positive pressure ventilation patient adamant he does not want any medications to initiate BiPAP and does not want to initiate BiPAP. Have ordered terbutaline IM. Have counseled patient at length regarding the risks of clinical deterioration intubation for respiratory arrest and/or that could result if we do not attempt BiPAP. Patient adamant he does not want to use BiPAP. Will continue with continuous nebs. Will continue to monitor closely for any signs of deterioration or altered mental status. 20: 01 have had multiple in-depth conversations with regards to patient's clinical condition with patient and patient's family, expressed my concern that if patient were to continue in the current state he would deteriorate and go into respiratory arrest and likely need intubation and further resuscitation. Patient amenable to low-dose ketamine to allow for BiPAP, given 0.25 mg/kg IV ketamine with great response now tolerating BiPAP, coloration greatly improved work of breathing greatly improved. Will monitor closely admission likely 20: 22 patient tolerating BiPAP improvement of symptomatology however still BiPAP dependent, will admit to ICU for continued treatment of severe COPD exacerbation. Quality:[facility] Health Related Social Needs: No Data to Display Critical Care Time Critical Care Time Critical Care Time: Yes Total Critical Care Time: 30 Attestation: Critical care time spent the bedside assessing patient interpreting labs interpreting imaging coordinating ICU level care in patient with severe respiratory distress related to COPD requiring BiPAP and ICU admission [facility] All Active Problems (Updated 10/20/23 @ 20:23 by Joao Rosario MD) COPD with exacerbation (Acute) Epicondylitis, lateral, left (Acute) Shortness of breath (Acute) COPD exacerbation (Acute) COVID (Acute) Right lateral epicondylitis (Acute) Medical History (Updated 10/20/23 @ 20:23 by Joao Rosario MD) COPD (chronic obstructive pulmonary disease) Obstructive sleep apnea Surgical History History of appendectomy Social History Smoking/Tobacco Use Status: Current every day Tobacco Type: cigarettes Smoking risk assessment performed?: Yes Alcohol Intake: never Drug use: Never Substance use type: does not use Housing: apartment Do you feel safe at home: Yes Do you feel safe in your relationship?: Yes
[2023-10-20] MEDS: MAGNESIUM SULFATE 1 GM/100 ML BAG IVINF (17:38)
[2023-10-20 17:50] LABS: ALT 24 U/L (16-63); AST 18 U/L (15-37); Albumin 4.2 g/dL (3.4-5.0); Alkaline Phosphatase 99 U/L (46-116); Anion Gap 7.4 mmol/L (3-11); BUN 13 mg/dL (7-18); Bilirubin, Total 1.4 mg/dL (0.2-1.0); CO2 30.6 mmol/L (21.0-32.0); CREATININE 1.1 mg/dL (0.70-1.30); Calcium 8.5 mg/dL (8.5-10.1); Chloride 101 mmol/L (98-107); Glucose 105 mg/dL (74-106); Potassium 4.6 mmol/L (3.5-5.1); Sodium 139 mmol/L (136-145); Total Protein 7.7 g/dL (6.4-8.2)
[2023-10-20] MEDS: AZITHROMYCIN 500 MG in Normal Saline 250 ML 250 MG IVPB (18:11)
[2023-10-20 18:29] LABS: COVID-19 PCR Negative (Negative); Influenza A PCR Negative (Negative); Influenza B PCR Negative (Negative); RSV PCR Negative (Negative)
[2023-10-20 18:30] LABS: Source Nasopharynx
--- NOTE | 2023-10-20 18:43 | DI.VRAD_ITS ---
PROCEDURE INFORMATION: Exam: XR Chest Exam date and time: 10/20/2023 5:47 PM Age: 63 years old Clinical indication: Other: Copd resp distress TECHNIQUE: Imaging protocol: Radiologic exam of the chest. Views: 1 view. COMPARISON: CR XR CHEST 2V PA LATERAL 24/04/2023 19:38 FINDINGS: Lungs: Emphysematous lung disease. No focal consolidation. Mild reticular markings at the left base consistent with atelectasis or scar. Pleural spaces: Unremarkable. No pleural effusion. No pneumothorax. Heart/Mediastinum: Unremarkable. No cardiomegaly. Vasculature: Atherosclerotic disease. Bones/joints: Old right clavicular fracture. Degenerative changes of the thoracic spine. IMPRESSION: COPD. Reticular markings at the left base consistent with atelectasis or scar. Dictated and Authenticated by: Enriqueta Odom MD. Ordering:DANE Shepherd MD
[2023-10-20] MEDS: Terbutaline 1 MG/ML VIAL 0.25 MG SC (19:30)
[2023-10-20] MEDS: Ketamine 500 MG/10 ML VIAL 20 MG IVP (19:42)
--- NOTE | 2023-10-20 20:45 | W.PM.HP.N ---
Date of service: 10/20/23 Time of Service: 20:45 Assessment and Plan Assessment and plan (1) COPD with exacerbation: Status: Acute Assessment and plan: COPD exacerbation. No trigger evident other than the heat; specifically no signs of infection at this point. Would continue steroids and updrafts. Would favor continuing BiPap through the night, with prn anxiolytics, and trial off in AM once he's had a chance to rest. I don't see that continued antibiotics are indicated at present, but will reassess in AM. Has had initial load of Zithro in meantime. History of Present Illness History of Present Illness Chief Complaint: SOB Narrative: 63 male with COPD, continues to smoke (2 cig/day). Has baseline dry cough, no change, but over weekend with hot weather has become increasingly SOB, and acutely so today. says that hot weather is a typical trigget for him. No fever or exposure to respiratory illness at home. EMS summoned, received Solumedrol 125 en route. Here in ER obvious respiratory distress noted. received multiple Duonebs, Mag, terbutaline and Zithromax 500 IV.. BiPap advised, refused on multiple occasions, but eventually agreed while receiving low dose Ketamine. Staff report much improvement, patient appears far more comfortable. Lab of note for white count 6, triple negative viral swab and negative CXR (save for baseline COPD). I was asked to evaluate for admission. Review of Systems Narrative: per HPI PFSH All Active Problems COPD with exacerbation (Acute) Epicondylitis, lateral, left (Acute) Shortness of breath (Acute) COPD exacerbation (Acute) COVID (Acute) Right lateral epicondylitis (Acute) Medical History COPD (chronic obstructive pulmonary disease) Obstructive sleep apnea Surgical History History of appendectomy Social History Smoking/Tobacco Use Status: Current every day Tobacco Type: cigarettes Smoking risk assessment performed?: Yes Alcohol Intake: never Drug use: Never Substance use type: does not use Housing: apartment Do you feel safe at home: Yes Do you feel safe in your relationship?: Yes Meds Allergies and Home Medications Allergies Allergy/AdvReac Type Severity Reaction Status Date / Time aspirin Allergy Intermediate Skin Rash Verified 10/20/23 18:27 crab Allergy Anaphylaxsi Verified 10/20/23 18:27 s hydrocodone [Hydrocodone] AdvReac Severe dizzy and Verified 10/20/23 18:27 nausea lobster Allergy Anaphylaxsi Uncoded 10/20/23 18:27 s Home Medications Medication Instructions Recorded Confirmed Type nortriptyline 25 mg capsule 50 mg PO HS 07/16/14 04/24/23 History acetaminophen 500 mg tablet 1,000 mg PO PRN PRN 03/07/18 04/24/23 History propranolol 80 mg tablet 80 mg PO BID 02/01/20 04/24/23 History lisinopril 5 mg tablet 5 mg PO DAILY AM 04/15/21 04/24/23 History nebulizer and compressor (Comp-Air 04/15/21 02/14/23 History Nebulizer Compressor) budesonide 160 mcg-glycopyr 9 2 inh inhalation BID 02/01/22 04/24/23 History mcg-formot 4.8 mcg/actuation HFA inhaler ([facility]tri [facility]) sucralfate 1 gram tablet (Carafate) 1 g PO BID #20 tabs 07/12/22 04/24/23 Rx atorvastatin 40 mg tablet 40 mg PO DAILY 02/14/23 04/24/23 History benzonatate 200 mg capsule 200 mg PO BID-TID PRN #20 caps 04/24/23 Rx ipratropium 0.5 mg-albuterol 3 mg ml inhalation 04/24/23 History (2.5 mg base)/3 mL nebulization soln levofloxacin 750 mg tablet 750 mg PO DAILY #7 tabs 04/24/23 Rx Exam Narrative Exam Narrative: 128/85, 109, 36.4, 17, 92% on BiPap. HEENT atraumatic; neck supple; lungs diminished, heart distant, RRR; abdomen soft and NT; extremities w/o edema; Neuro: ZOx3, moves all 4s Results Labs 10/20/23 17:23 10/20/23 17:23 Labs: Laboratory Results - last 24 hr 10/20/23 10/20/23 17:23 17:46 WBC 6.62 RBC 4.17 L Hgb 13.8 Hct 39.5 L MCV 95 MCH 33.1 H MCHC 34.9 RDW 13.7 Plt Count 201 MPV 9.3 Immature Gran % 0.2 Neutrophils % 65.8 Lymphocytes % 21.1 Monocytes % 12.1 Eosinophils % 0.6 Basophils % 0.2 Nucleated RBC % 0.0 Absolute Neutrophils 4.36 Absolute Lymphocytes 1.40 Absolute Monocytes 0.80 Absolute Eosinophils 0.04 Absolute Basophils 0.01 Sodium 139 Potassium 4.6 Chloride 101 Carbon Dioxide 30.6 Anion Gap 7.4 BUN 13 Creatinine 1.1 Est GFR (CKD-EPI 2020) 74.50 Glucose 105 Calcium 8.5 Total Bilirubin 1.4 H AST 18 ALT 24 Alkaline Phosphatase 99 Total Protein 7.7 Albumin 4.2 COVID-19 Source Nasopharynx SARS-CoV-2 (PCR) Negative Influenza Type A (PCR) Negative Influenza Type B (PCR) Negative RSV (PCR) Negative Last Vital Signs Temp 36.4 C L 10/20/23 17:19 Pulse 109 H 10/20/23 20:01 Resp 17 10/20/23 20:10 BP 168/106 H 10/20/23 20:01 Pulse Ox 95 10/20/23 19:53 Time Spent Time spent with Patient: 40-54 minutes Time was spent: preparing to see the patient(eg.review tests), obtaining and/or reviewing separately otained hiistory, ordering medications,tests, procedures, referring, communicating with other health patient care representative and indepentently interpreting results
[2023-10-21] VITALS (52 sets, daily range): BP systolic 116–156; BP diastolic 82–124; PULSE 88–119; RESP 2–24; TEMP 36.7–37.4; O2SAT 87–98
--- NOTE | 2023-10-21 | DI.CT_ITS ---
Exam(s) CT CHEST PE CTA EXAM: CT CHEST PE CTA CLINICAL HISTORY: short of breath, tachynea/tachycardia. TECHNIQUE: Imaging Protocol: Axial CT angiography was performed with multi-slice acquisition and mu lti-planar reconstructions as well as axial, coronal and sagittal MIP reconstructions. CONTRAST MATERIAL: Intravenous: Omnipaque 350 Contrast volume:100 ml COMPARISON: CT CT CHEST LUNG CANCER SCREEN from 03/11/2023 CR,XR XR CHEST 2V PA LATERAL from 04/24/2023 CR,XR XR PORTABLE CHEST AP from 10/20/2023 FINDINGS: Pulmonary Arteries: The lower lobe pulmonary arteries are suboptimally opacified. No evidence of andrea ling defect to suggest pulmonary emboli. Tracheobronchial tree: No mucous plugging. Mild diffuse bronchial wall thickening. Mediastinum and Carlota: No dominant adenopathy or fluid collection. Pulmonary parenchyma: Severe emphysematous changes greater in the upper lobes. No consolidation or d ominant measurable mass. Pleura: No effusion or pneumothorax. Heart: The heart is not dilated. Mild coronary artery calcifications are seen. Aorta: Thoracic aorta non-dilated. No dissection. Atherosclerotic changes. Upper abdominal aorta shows calcification and some mural thrombus. Maximum dimension infrarenal aorta is 3 cm. Upper abdomen: No acute findings. Bones: Moderate compression fracture of T6 which is new since the prior CT examination. No retropuls ion. Stable mild T8 compression fracture. Tubes, Catheters, and Lines: None Soft tissues: Unremarkable. IMPRESSION: No evidence of pulmonary embolism. Severe emphysematous changes. No acute infiltrate. New moderate T6 compression fracture. RADIATION DOSE DELIVERED: Total DLP DATA REPOSITORY: All CT scans at this facility are submitted to the National Radiology Data Registry (NRDR) Dose Index Registry (DIR) with the [employer] (ACR). RADIATION OPTIMIZATION: All CT scans at this facility use at least one of these dose optimization te chniques: automated exposure control; mA and/or kV adjustment per patient size (includes targeted exa ms where dose is matched to clinical indication); or iterative reconstruction.
[2023-10-21] MEDS: methylPREDNISolone SUCC 40 MG VIAL IVP ×3 (01:57→18:54)
--- NOTE | 2023-10-21 02:23 | W.PC.ACHO ---
Registration Status: ADM [place] Primary Language: Preferred Language: Surinamese ED Information & Data Chief Complaint RespSymp 10/20/23 17:39 Triage Note BIBA, resp distress, 10/20/23 17:19 increased WOB. Onging since 10am. Took own inhalers. 125 solumed per EMS, 2 duonebs given. Medical / Surgical History (Last Reviewed 10/20/23 @ 20:52 by Sedrick Brand MD) COPD (chronic obstructive pulmonary disease) Obstructive sleep apnea (Last Reviewed 10/20/23 @ 20:52 by Sedrick Brand MD) History of appendectomy Most Recent Vital Signs Temperature 36.7 C 10/20/23 22:23 Temperature Source Temporal Artery Scan 10/20/23 22:23 Pulse 100 H 10/21/23 01:53 Pulse 101 H 10/21/23 01:01 Respiratory Rate 15 10/21/23 01:53 Respiratory Effort Non-Labored 10/20/23 22:23 Respiratory Depth Normal 10/20/23 22:23 Respiratory Pattern Irregular 10/20/23 22:23 Blood Pressure 116/97 H 10/21/23 01:01 Blood Pressure Mean 104 10/21/23 01:01 Blood Pressure Position Supine 10/20/23 22:23 Pulse Oximetry 94 10/21/23 01:53 Oxygen Delivery Method Bi-pap 10/20/23 22:23 Oxygen Flow Rate 644 10/20/23 19:53 Fraction of Inspired Oxygen (FIO2) 24 10/21/23 01:53 Pain Level 0 10/20/23 22:23 Allergies aspirin Allergy (Intermediate, Verified 10/20/23 18:27) Skin Rash rash crab Allergy (Verified 10/20/23 18:27) Anaphylaxsis hydrocodone [Hydrocodone] Adverse Reaction (Severe, Verified 10/20/23 18:27) dizzy and nausea lobster Allergy (Uncoded 10/20/23 18:27) Anaphylaxsis Precautions Isolation Standard precaution 10/20/23 17:23 Active Medications Generic Name Dose Route Start Last Admin Trade Name Freq PRN Reason Stop Dose Admin Albuterol/Ipratropium 3 ml 10/20/23 21:00 10/20/23 22:22 Albuterol/Ipratropium 3 Ml Upd Vial UPD Not Given Q6H ARIANNA Albuterol Sulfate 10 mg/ 0 mg 10/20/23 18:15 10/20/23 21:05 Sodium Chloride 9 ml UPD 5 mg DIRECTED ARIANNA Administration Methylprednisolone Sodium Succinate 40 mg 10/21/23 02:00 10/21/23 01:57 Methylprednisolone Succ 40 Mg Vial IVP 40 mg Q8H ARIANNA Administration IV IV Catheter Type [Left Peripheral IV Antecubital] IV Catheter Gauge [Left 18 Antecubital] Diet Orders Category Date Time Status Regular/Normal [DIET] Nutrition 10/21/23 Breakfast Active Diagnostics 10/20/23 10/20/23 Range/Units 17:46 17:23 WBC 6.62 (4.4-10.8) 10^3/uL RBC 4.17 L (4.36-5.78) 10^6/uL Hgb 13.8 (13.5-17.5) g/dL Hct 39.5 L (40.0-50.0) % MCV 95 (80-95) fL MCH 33.1 H (27.0-33.0) pg MCHC 34.9 (32.0-36.0) % RDW 13.7 (11.8-14.1) % Plt Count 201 (130-400) 10^3/uL MPV 9.3 (8.0-11.0) fL Immature Gran % 0.2 % Neutrophils % 65.8 % Lymphocytes % 21.1 % Monocytes % 12.1 % Eosinophils % 0.6 % Basophils % 0.2 % Nucleated RBC % 0.0 (0.0-0.3) % Absolute Neutrophils 4.36 (1.2-6.7) 10^3/uL Absolute Lymphocytes 1.40 (1.2-3.4) 10^3/uL Absolute Monocytes 0.80 (0.1-0.8) 10^3/uL Absolute Eosinophils 0.04 (0.0-0.7) 10^3/uL Absolute Basophils 0.01 (0.0-0.2) 10^3/uL Sodium 139 (136-145) mmol/L Potassium 4.6 (3.5-5.1) mmol/L Chloride 101 (98-107) mmol/L Carbon Dioxide 30.6 (21.0-32.0) mmol/L Anion Gap 7.4 (3-11) mmol/L BUN 13 (7-18) mg/dL Creatinine 1.1 (0.70-1.30) mg/dL Est GFR (CKD-EPI 2020) 74.50 (mL/min/1.73m2) Glucose 105 (74-106) mg/dL Calcium 8.5 (8.5-10.1) mg/dL Total Bilirubin 1.4 H (0.2-1.0) mg/dL AST 18 (15-37) U/L ALT 24 (16-63) U/L Alkaline Phosphatase 99 (46-116) U/L Total Protein 7.7 (6.4-8.2) g/dL Albumin 4.2 (3.4-5.0) g/dL COVID-19 Source Nasopharynx SARS-CoV-2 (PCR) Negative (Negative) Influenza Type A (PCR) Negative (Negative) Influenza Type B (PCR) Negative (Negative) RSV (PCR) Negative (Negative) Intake and Output - 24 Hour Total 10/20/23 17:12 thru 10/20/23 22:23 Intake Total 350 Balance 350 Weight 78.5 kg Intake: IV 350 Falls Risk Assessment History of Falls No History 10/20/23 22:23 Contributing Factors No Factors 10/20/23 22:23 Ambulatory Aids Independent 10/20/23 22:23 Tubes/Lines W/no contributing factors 10/20/23 22:23 Gait Evaluation W/no contributing factors 10/20/23 22:23 Cognition No cognitive impairment 10/20/23 22:23 Fall Total Score 20 10/20/23 22:23 Level of Risk Standard/Low Risk 10/20/23 22:23 Problems (Last Reviewed 10/20/23 @ 20:52 by Sedrick Brand MD) COPD with exacerbation (Acute) v v v v v v v v v Sending and/or Receiving Nurses: Please use comment section below to note any information pertinent to the patient hand-off not included above. Information / Comments: Report received from: Dnaa Quiñonez @[id number] 10/20/23 answered all questions: yes
[2023-10-21] MEDS: Albuterol/Ipratropium 3 ML UPD VIAL UPD ×3 (03:16→17:50)
[2023-10-21] MEDS: Normal Saline Flush 10 ML SYR IVP (04:50)
[2023-10-21] MEDS: Albuterol 2.5 MG/3 ML INH SOLN VIAL UPD (06:03)
[2023-10-21] MEDS: ALPRAZolam 0.25 MG TAB PO (06:34)
[2023-10-21 06:50] LABS: BE (Venous) 3 mmol/L (-2-3); HCO3 (Venous) 27 mmol/L (23-28); O2 Sat (Venous) 91 %; TCO2 (Venous) 24 mmol/L (24-29); pCO2 (Venous) 43 mmHg (41-51); pH (Venous) 7.41 (7.31-7.41); pO2 (Venous) 57 mmHg
[2023-10-21] MEDS: diazePAM 10 MG/2 ML SYR 2.5 MG IVP (09:57)
[2023-10-21] MEDS: diazePAM 10 MG/2 ML SYR 5 MG IVP (10:47)
[2023-10-21] MEDS: Omnipaque 350 MG/ML 100 ML BTL IJ (11:01)
[2023-10-21] MEDS: Normal Saline - Diluent 50 ML VIAL IJ (11:01)
--- NOTE | 2023-10-21 11:38 | W.PM.PROGNOT ---
Date of Service Date of service: 10/21/23 Time of Service: 11:39 Assessment and Plan Assessment and plan (1) Respiratory failure with hypoxia and hypercapnia: Status: Acute Assessment and plan: VBG normalized on BiPAP. He is actually hyperventilating this morning, apparently related to anxiety. He does seem to be doing better with the 5 mg of valium. Presumed related to COPD, but given ongoing distress and his risks we did order CT chest this morning to assess for PE or mass or infiltrate that we missed Continue treating COPD as below. (2) COPD with exacerbation: Status: Acute Assessment and plan: I agree that this is most consistent with COPD exacerbation. continue IV solumedrol and bronchodilators azithro in ED, antibiotics not continued, no sputum or fever, but reconsider based on CT. (3) Smoker: Status: Acute Assessment and plan: NRT prn (4) DVT prophylaxis: Status: Acute Assessment and plan: lovenox Subjective Subjective Patient reports: denies diarrhea, vomiting or fever Interval history since last seen: Overnight: Difficulty tolerating BiPAP, anxious, received 20mg ketamine, then 0.25mg alprazolam this morning. Still short of breath. Can't breath enough. Doesn't feel like he can some off the BiPAP. Some cough, not coughing up phlegm. Exam Narrative Exam Narrative: HEENT atraumatic; neck supple, no elevation JVP or masses lungs diminished, but audible throughout, some expiratory rhonchi heart distant, RRR, no m/g/r abdomen soft and NT/ND extremities w/o edema, not tender Objective Last Vital Signs Temp 36.7 C 10/21/23 04:37 Pulse 107 H 10/21/23 11:28 Resp 14 10/21/23 11:28 BP 151/95 H 10/21/23 05:01 Pulse Ox 89 L 10/21/23 11:28 Laboratory Results - last 24 hr 10/20/23 10/20/23 10/21/23 17:23 17:46 06:42 WBC 6.62 RBC 4.17 L Hgb 13.8 Hct 39.5 L MCV 95 MCH 33.1 H MCHC 34.9 RDW 13.7 Plt Count 201 MPV 9.3 Immature Gran % 0.2 Neutrophils % 65.8 Lymphocytes % 21.1 Monocytes % 12.1 Eosinophils % 0.6 Basophils % 0.2 Nucleated RBC % 0.0 Absolute Neutrophils 4.36 Absolute Lymphocytes 1.40 Absolute Monocytes 0.80 Absolute Eosinophils 0.04 Absolute Basophils 0.01 VBG pH 7.41 VBG pCO2 43 VBG pO2 57 VBG HCO3 27 VBG Total CO2 24 VBG O2 Saturation 91 VBG Base Excess 3 Sodium 139 Potassium 4.6 Chloride 101 Carbon Dioxide 30.6 Anion Gap 7.4 BUN 13 Creatinine 1.1 Est GFR (CKD-EPI 2020) 74.50 Glucose 105 Calcium 8.5 Total Bilirubin 1.4 H AST 18 ALT 24 Alkaline Phosphatase 99 Total Protein 7.7 Albumin 4.2 COVID-19 Source Nasopharynx SARS-CoV-2 (PCR) Negative Influenza Type A (PCR) Negative Influenza Type B (PCR) Negative RSV (PCR) Negative Time Spent with Patient Time Spent with Patient: >50 minutes Time was spent: preparing to see the patient(eg.review tests), obtaining and/or reviewing separately otained hiistory, ordering medications,tests, procedures, referring, communicating with other health primary care sales representative, indepentently interpreting results, counseling the patient and care coordination
--- NOTE | 2023-10-21 12:24 | DI.VRAD_ITS ---
PROCEDURE INFORMATION: Exam: CTA Chest With Contrast Exam date and time: 10/21/2023 11:08 AM Age: 63 years old Clinical indication: Other: Short of breath, tachynea/tachycardia TECHNIQUE: Imaging protocol: Computed tomographic angiography of the chest with contrast. Exam focused on the arteries. 3D rendering (Not supervised by radiologist): MIP and/or 3D reconstructed images were created by the technologist. Contrast material: OMNIPAQUE 350; Contrast volume: 100 ml; Contrast route: INTRAVENOUS (IV); COMPARISON: CT CHEST PE CTA 04/15/2021 10:01 PM FINDINGS: Pulmonary arteries: Poor contrast opacification of the right lower lobe segmental and subsegmental pulmonary arteries. Remaining pulmonary arteries are unremarkable. Aorta: No aortic dissection. 3 cm infrarenal aortic aneurysm. Atherosclerotic disease. Lungs: Severe pulmonary emphysema. No consolidation. Stable subcentimeter solid pulmonary nodules. Index 4 mm left perifissural nodule noted on series 8, image 249. Pleural spaces: Unremarkable. No pneumothorax. No pleural effusion. Heart: Unremarkable. No cardiomegaly. No pericardial effusion. Lymph nodes: Unremarkable. No enlarged lymph nodes. Diaphragm: Possible small hiatal hernia. Liver: Subcentimeter hepatic hypodensities, too small to further characterize. Bones/joints: Gjmx-[id number] height loss of the T6 vertebral body. No vertebral body retropulsion. Chronic mild T8 compression deformity, unchanged. Soft tissues: Unremarkable. IMPRESSION: 1. Poor contrast opacification of the right lower lobe pulmonary arteries. This is favored secondary to respiratory motion artifact, although acute pulmonary emboli are not excluded. 2. Mild to moderate T6 compression deformity, new compared to prior in 2022. 3. Stable pulmonary nodule(s) for which no further follow-up is recommended per [employer] society guidelines. (Reference: MacMarkelhochris) REFERENCES: Rosalinehochris H, et al. Guidelines for Management of Incidental Pulmonary Nodules Detected on CT Images: From the Fleischner Society 2017. Radiology. 2017;284(1):228-243. Dictated and Authenticated by: Timur Banerjee MD. Ordering:ANNA Aguilera MD
[2023-10-21 21:25] LABS: BE (Venous) 4 mmol/L (-2-3); HCO3 (Venous) 29 mmol/L (23-28); O2 Sat (Venous) 88 %; TCO2 (Venous) 26 mmol/L (24-29); pCO2 (Venous) 45 mmHg (41-51); pH (Venous) 7.41 (7.31-7.41); pO2 (Venous) 52 mmHg
[2023-10-21] MEDS: Pantoprazole 40 MG VIAL IVP (21:53)
[2023-10-21] MEDS: Ondansetron 4 MG/2 ML VIAL IVP (21:55)
[2023-10-21] MEDS: diazePAM 2 MG TAB PO (21:55)
[2023-10-22] VITALS (89 sets, daily range): BP systolic 96–131; BP diastolic 66–91; PULSE 90–123; RESP 5–28; TEMP 36.2–37.8; O2SAT 86–100
[2023-10-22] MEDS: methylPREDNISolone SUCC 40 MG VIAL IVP ×2 (02:09→10:27)
[2023-10-22] MEDS: Normal Saline Flush 10 ML SYR IVP ×2 (02:16→10:27)
[2023-10-22] MEDS: Albuterol/Ipratropium 3 ML UPD VIAL UPD ×4 (05:34→18:10)
[2023-10-22 05:52] LABS: BE (Venous) 5 mmol/L (-2-3); HCO3 (Venous) 31 mmol/L (23-28); O2 Sat (Venous) 99 %; TCO2 (Venous) 28 mmol/L (24-29); pCO2 (Venous) 56 mmHg (41-51); pH (Venous) 7.35 (7.31-7.41); pO2 (Venous) 106 mmHg
[2023-10-22 05:54] LABS: Abs Immature Grans 0.06 10^3/uL (0.0-0.06); Absolute Lymphocyte Count 0.49 10^3/uL (1.2-3.4); Absolute Monocyte Count 0.47 10^3/uL (0.1-0.8); Basophils % 0.1 %; Immature Grans % 0.4 %; Lymphocytes % 3.3 %; MCH 32.6 pg (27.0-33.0); MCHC 34.2 % (32.0-36.0); MCV 95 fL (80-95); MPV 9.2 fL (8.0-11.0); Monocytes % 3.2 %; Platelet Count 212 10^3/uL (130-400); RBC 3.99 10^6/uL (4.36-5.78); RDW 14.1 % (11.8-14.1); RDW-SD 49.3 fL; WBC 14.74 10^3/uL (4.4-10.8)
[2023-10-22 05:55] LABS: Absolute Basophil Count 0.01 10^3/uL (0.0-0.2); Absolute Neutrophil Count 13.71 10^3/uL (1.2-6.7)
[2023-10-22 06:18] LABS: ALT 23 U/L (16-63); AST 19 U/L (15-37); Albumin 3.9 g/dL (3.4-5.0); Alkaline Phosphatase 86 U/L (46-116); Anion Gap 6.2 mmol/L (3-11); BUN 27 mg/dL (7-18); Bilirubin, Total 1.2 mg/dL (0.2-1.0); CO2 31.8 mmol/L (21.0-32.0); Calcium 8.4 mg/dL (8.5-10.1); Chloride 102 mmol/L (98-107); Estimated GFR 83.52 (mL/min/1.73m2); Glucose 135 mg/dL (74-106); Magnesium 2.2 mg/dL (1.8-2.4); Potassium 4.6 mmol/L (3.5-5.1); Sodium 140 mmol/L (136-145); Total Protein 7.3 g/dL (6.4-8.2)
[2023-10-22] MEDS: Albuterol 2.5 MG/3 ML INH SOLN VIAL UPD (08:01)
[2023-10-22] MEDS: Budesonide/Formoterol 160/4.5 6 GM 60 PUFF INH IH ×2 (08:02→20:20)
[2023-10-22] MEDS: Tiotropium Bromide-Respimat 10 PUFF INH 2 PUFF IH (08:03)
[2023-10-22] MEDS: Acetaminophen 325 MG TAB 650 MG PO ×2 (08:55→18:36)
--- NOTE | 2023-10-22 09:18 | INITIAL_ITS ---
Date of service: 10/22/23 Time of Service: 09:18 Care Management Initial Assmt Initial Assessment Reason for Hospitalization: COPD Functional Status/Living Situation Patient Presentation: Kit was lying in bed when CM met with him. He is awake and engages in conversation. Kit spoke fondly of his , step-sons, brother and sister. His is his point person and keeping family updated, as needed. During the conversation, Kit pointed to the bi-pap machine located in the corner of his room and shares with CM that he was on it for 2 days and wont be using it again. He is agreeable to wearing a nasal cannula. Town of Residence: [facility] Resides with: Spouse (Anushka) Significant Other/Family: Out of area (Brother Anjum lives in [place], Sister Francoise lives in [facility], also has 2 step sons that live out of [facility]) Employment Status: Disabled (Degenerative disc disease, COPD, Bursitis) Instrumental Activities of Daily Living (ADLs): Independent Medications Medication Management: No Issues/Barriers identified Physical Functioning/Mobility Assistive Device: None Advance Directives Advance Directives: Do you have an Advance Directive: N 05/17/18 17:20 AD On File at [facility]: N 10/28/12 16:23 Date Asked 10/20/23 10/20/23 17:49 AD Date Reviewed COLST On File at [facility] COLST Date Scanned Code Status Resuscitation Status Full Code Portal Pt does not currently have a portal and education provided: No Portal Education: Other (Info provided) Insurance Coverage/Financial Issues Insurance: Medicaid Medicare ACO Member: No Financial Issues: Receives State Resources, currently Care Team Visit Care Team Role Provider Type Milagro Sanchez Primary Care Provider NURSE PRACTITIONER Joao Rosario MD Emergency Provider [facility] STAFF PHYSICIAN Sedrick Brand MD Admit Provider [facility] STAFF PHYSICIAN Attending Provider Discharge Potential Discharge Needs: PCP F/U Appt (Milagro Sanchez) Anticipated Barriers to Discharge: None Identified Patient/Family Education Needs: Review discharge instructions, discuss Ask Me Three Transportation: Private vehicle (Friend will transport) Plan: Kit is being closely monitored and treated for COPD. Anticipate, Kit will discharge home with a plan to follow up with community providers when medically ready. His friend will provide transportation. New services will be ordered, if indicated. CM will follow. PFSH All Active Problems (Updated 10/21/23 @ 11:55 by Willy Wright) DVT prophylaxis (Acute) Smoker (Acute) Respiratory failure with hypoxia and hypercapnia (Acute) COPD with exacerbation (Acute) Epicondylitis, lateral, left (Acute) COPD exacerbation (Acute) COVID (Acute) Right lateral epicondylitis (Acute) Medical History (Updated 10/21/23 @ 11:55 by Willy Wright) COPD (chronic obstructive pulmonary disease) Obstructive sleep apnea Surgical History History of appendectomy Social History Smoking/Tobacco Use Status: Current every day Tobacco Type: cigarettes Smoking risk assessment performed?: Yes Alcohol Intake: never Drug use: Never Substance use type: does not use Housing: apartment Do you feel safe at home: Yes Do you feel safe in your relationship?: Yes SDOH(Care Management) Screening Will the Patient Participate in the Screening?: Yes Do you worry about having a steady place to live?: no Problems where you live: no known problems In the past 12 months, have you had to go without electric, gas, oil or water in your home?: no Have you or anyone in your house had to go without enough food to eat?: no Has lack of transportation kept you from medical appointments or from doing things needed for daily living?: no Has anyone in your support network made you feel unsafe for any reason?: no
--- NOTE | 2023-10-22 12:42 | W.PM.PROGNOT ---
Date of Service Date of service: 10/22/23 Time of Service: 12:42 Assessment and Plan Assessment and plan (1) Respiratory failure with hypoxia and hypercapnia: Status: Acute Assessment and plan: continue HFNC, wean as tolerated (keep SPO2 >88%), encourage ambulation, continue Duoneb qid along w/ LABA/LAMA/ICS, change solumedrol to prednisone, change iv protonix to po; transfer out of ICU to med/surg. will check procalcitonin but no evidence for need for antibiotics at this time. Professional time spent interviewing and examining patient, discussion of goals of care with hospital team (care management, nursing and consulting professionals) was 45 minutes. Qualifiers: Chronicity: acute on chronic Qualified Code(s): J96.21 - Acute and chronic respiratory failure with hypoxia; J96.22 - Acute and chronic respiratory failure with hypercapnia (2) COPD with exacerbation: Status: Acute Assessment and plan: as above. (3) Smoker: Status: Acute Assessment and plan: NRT prn (4) DVT prophylaxis: Status: Acute Assessment and plan: lovenox Subjective Subjective Interval history since last seen: Patient states that he still gets dyspneic w/ any activity. He has cough but not able to produce a sputum. No fevers, and had no antecedent fever or chills. He is currently on iv solumedrol, Symbicort and Spiriva along w/ scheduled DuoNeb aerosols. He was intolerant of BIPAP (used for treatment of hypercapneic and hypoxic respiratory failure). He is improving and now able to talk in complete paragraphs but says he gets dyspneic w/ transfers out of bed. CTA chest on admission did not show any P.E. nor any pneumonic consolidations. He is now improving on HFNC at 5 lpm. Still desaturates to high 80's w/ 4 lpm. Exam Narrative Exam Narrative: Late middle age white male, able to talk in complete paragraphs but then will tire out. Dry cough. LUngs: diffuse fine expiratory wheezing; prolonged expiratory phase Heart: tachycardic, regular, no murmur or rub; rhythm sinus tach in low 100's Abdomen: normal bowel sounds, soft, nontender, Objective Last Vital Signs Temp 36.5 C 10/22/23 07:50 Pulse 106 H 10/22/23 11:40 Resp 12 10/22/23 11:40 BP 103/79 10/22/23 09:01 Pulse Ox 92 10/22/23 11:40 Laboratory Results - last 24 hr 10/21/23 10/22/23 21:18 05:39 WBC 14.74 H RBC 3.99 L Hgb 13.0 L Hct 38.0 L MCV 95 MCH 32.6 MCHC 34.2 RDW 14.1 Plt Count 212 MPV 9.2 Immature Gran % 0.4 Neutrophils % 93.0 Lymphocytes % 3.3 Monocytes % 3.2 Eosinophils % 0.0 Basophils % 0.1 Nucleated RBC % 0.0 Absolute Neutrophils 13.71 H Absolute Lymphocytes 0.49 L Absolute Monocytes 0.47 Absolute Eosinophils 0.00 Absolute Basophils 0.01 VBG pH 7.41 7.35 VBG pCO2 45 56 H VBG pO2 52 106 VBG HCO3 29 H 31 H VBG Total CO2 26 28 VBG O2 Saturation 88 99 VBG Base Excess 4 H 5 H Sodium 140 Potassium 4.6 Chloride 102 Carbon Dioxide 31.8 Anion Gap 6.2 BUN 27 H Creatinine 1.0 Est GFR (CKD-EPI 2020) 83.52 Glucose 135 H Calcium 8.4 L Magnesium 2.2 Total Bilirubin 1.2 H AST 19 ALT 23 Alkaline Phosphatase 86 Total Protein 7.3 Albumin 3.9 Time Spent with Patient Time Spent with Patient: 35-49 minutes Time was spent: preparing to see the patient(eg.review tests), obtaining and/or reviewing separately otained hiistory, ordering medications,tests, procedures, referring, communicating with other health property caretaker, indepentently interpreting results, counseling the patient and care coordination
[2023-10-22 13:23] LABS: Lab Add On Test DONE
[2023-10-22] MEDS: predniSONE 20 MG TAB 40 MG PO (14:04)
[2023-10-22 14:21] LABS: Procalcitonin < 0.1 ng/mL
--- NOTE | 2023-10-22 16:01 | PHA.REVIEW2 ---
Pharmacy Admission Review Admission Clinical Review Admission Pharmacy Review: (Updated 10/22/23 @ 13:13 by Parmjit Booth MD) DVT prophylaxis (Acute) Smoker (Acute) Respiratory failure with hypoxia and hypercapnia (Acute) COPD with exacerbation (Acute) aspirin Allergy (Intermediate, Verified 10/20/23 18:27) Skin Rash crab Allergy (Verified 10/20/23 18:27) Anaphylaxsis hydrocodone [Hydrocodone] Adverse Reaction (Severe, Verified 10/20/23 18:27) dizzy and nausea lobster Allergy (Uncoded 10/20/23 18:27) Anaphylaxsis Resuscitation Status Full Code Height 5 ft 10 in Weight 78.5 kg Pharmacy Admission Review Renal Dosing Renal Dosing: BUN 27 mg/dL (7-18) H 10/22/23 05:39 Creatinine 1.0 mg/dL (0.70-1.30) 10/22/23 05:39 Medications needing adjustments: Reviewed (CrCl 81 mL/min) List of meds needing interventions: Current medications are okay Anticoagulation Anticoagulation: Hgb 13.0 g/dL (13.5-17.5) L 10/22/23 05:39 Hct 38.0 % (40.0-50.0) L 10/22/23 05:39 Plt Count 212 10^3/uL (130-400) 10/22/23 05:39 Creatinine 1.0 mg/dL (0.70-1.30) 10/22/23 05:39 DVT Prophylaxis: Intervened (Reached out to provider as no order had been put in yet but was mentioned in yesterdays progress note. Per provider patient had emesis with gastro-occult so SCD's only) Relevant Labs Relevant Labs: Sodium 140 mmol/L (136-145) 10/22/23 05:39 Potassium 4.6 mmol/L (3.5-5.1) 10/22/23 05:39 Chloride 102 mmol/L (98-107) 10/22/23 05:39 Magnesium 2.2 mg/dL (1.8-2.4) 10/22/23 05:39 Electrolytes, C-Reactive P, ESR: Reviewed (WBC increased from 6.62 to 14.74, Hgb decreased from 13.8 to 13, glucose 135) Cardiac Review BP, HR, EF%: Reviewed (BP WNL, HR 103, Ox 91) QTc Review QTc: Reviewed (456 from 10/20/23) IV to PO Switch IV Medications: Reviewed (ondansetron) Home Meds Home Med List reviewed: Reviewed Relevent Home Meds Not ordered & why?: Lisinopril Current Meds Current Medication Order Review: Intervened Comments: Changed timing of pantoprazole (was set as q24h at 2115) Added IV admission order set Pharmacy Antibiotic Review Relevant Labs: Relevant Labs 10/22/23 05:39 Procalcitonin < 0.1
[2023-10-23] VITALS (23 sets, daily range): BP systolic 91–131; BP diastolic 76–92; PULSE 75–107; RESP 8–25; TEMP 36.3–37.1; O2SAT 84–100
[2023-10-23] MEDS: Albuterol/Ipratropium 3 ML UPD VIAL UPD ×4 (05:44→18:02)
[2023-10-23] MEDS: Tiotropium Bromide-Respimat 10 PUFF INH 2 PUFF IH (07:52)
[2023-10-23] MEDS: Budesonide/Formoterol 160/4.5 6 GM 60 PUFF INH IH ×2 (07:53→20:24)
[2023-10-23] MEDS: predniSONE 20 MG TAB 40 MG PO (09:14)
[2023-10-23] MEDS: Propranolol 20 MG TAB PO (09:14)
[2023-10-23] MEDS: Pantoprazole 40 MG TABCR PO (09:17)
--- NOTE | 2023-10-23 10:00 | PGE_ITS ---
Date of Service Date of service: 10/23/23 Time of Service: 10:00 Assessment and Plan Assessment and plan (1) Respiratory failure with hypoxia and hypercapnia: Status: Acute Assessment and plan: will add doxycycline to his regiemen to cover for acute bronchitis. continue prednisone and scheduled DuoNeb treatments along w/ his LABA/LAMA/ICS, encourage use of acapella and IS, encourage ambulation. will ask P.T. to work w/ him. Will get exercise pulse oximetry prior to dc home. Hopefully home tomorrow. Professional time spent interviewing and examining patient, discussion of goals of care with hospital team (care management, nursing and consulting professionals) was 30 minutes. Qualifiers: Chronicity: acute on chronic Qualified Code(s): J96.21 - Acute and chronic respiratory failure with hypoxia; J96.22 - Acute and chronic respiratory failure with hypercapnia (2) COPD with exacerbation: Status: Acute Assessment and plan: as above. (3) Smoker: Status: Acute Assessment and plan: NRT prn (4) DVT prophylaxis: Status: Acute Assessment and plan: lovenox Subjective Subjective Interval history since last seen: Patient is feeling better. He notes that he finally is getting an appetite. Ate some oatmeal for breakfast, looking forward to [employer] for lunch. He is coughing up some yellowish mucous. He is not happy about his medication regimen. Lisinopril did not get reordered and he wants his atorvastatin in the morning. He did get his propranolol this morning for migraine prevention. Exam Narrative Exam Narrative: alert and oriented, sitting up in his chair, off oxygen, SPO2 92% on room air Lungs: prolonged expiratory phase w/ some end expiratory wheezes but improved overall airflow, no rhonchi or rales Heart: RRR, rhythm NSR per telemetry Extremities: no edema Objective Last Vital Signs Temp 36.3 C L 10/23/23 00:28 Pulse 94 H 10/23/23 05:54 Resp 18 10/23/23 06:00 BP 112/76 10/23/23 00:34 Pulse Ox 92 10/23/23 08:00 Laboratory Results - last 24 hr 10/22/23 05:39 Procalcitonin < 0.1 Add-On Test Request DONE Time Spent with Patient Time Spent with Patient: 25-34 minutes Time was spent: preparing to see the patient(eg.review tests), ordering medications,tests, procedures, referring, communicating with other health animal caretaker (ICU nurses, care managers), indepentently interpreting results, counseling the patient and care coordination
--- NOTE | 2023-10-23 10:14 | CMPROGNOTE_ITS ---
Date of service: 10/23/23 Time of Service: 10:14 Care Management Progress Note Progress Note Text Progress Note Text: S/O:Kit is sitting in a chair, watching TV when CM met with him. He is not back to baseline with his breathing, but feeling much better and is on RA. No change to discharge plan, tentative discharge is anticipated for tomorrow 10/24/23 if pt continues to improve medically. Awaiting PT recommendations. A: 63 year old male admitted to [facility] on 10/20/23 with COPD exacerbation. Discharge Potential Discharge Needs: PT Evaluation Patient/Family Education Needs: Review discharge instructions, discuss Ask Me Three Transportation: Private vehicle (Friend) Plan: Kit is being closely monitored and treated for COPD. Anticipate, pt will discharge home 10/24/23 if medically ready with a plan to follow up with community providers. His neighbor will provide transportation. Awaiting PT evaluation, New services will be ordered, if indicated. CM will follow. SDOH(Care Management) Screening Will the Patient Participate in the Screening?: Yes Do you worry about having a steady place to live?: no Problems where you live: no known problems In the past 12 months, have you had to go without electric, gas, oil or water in your home?: no Have you or anyone in your house had to go without enough food to eat?: no Has lack of transportation kept you from medical appointments or from doing things needed for daily living?: no Has anyone in your support network made you feel unsafe for any reason?: no
[2023-10-23] MEDS: guaiFENesin 600 MG TABCR PO ×2 (10:41→20:32)
[2023-10-23] MEDS: Lisinopril 5 MG TAB PO (10:41)
[2023-10-23] MEDS: Doxycycline Hyclate 100 MG CAP PO ×2 (10:41→21:24)
[2023-10-23] MEDS: Atorvastatin 40 MG TAB PO (10:42)
[2023-10-24] VITALS (17 sets, daily range): BP systolic 98–141; BP diastolic 61–101; PULSE 73–101; RESP 5–29; O2SAT 82–100
[2023-10-24] MEDS: Albuterol/Ipratropium 3 ML UPD VIAL UPD ×3 (05:45→11:33)
[2023-10-24] MEDS: guaiFENesin 600 MG TABCR PO (07:59)
[2023-10-24] MEDS: Lisinopril 5 MG TAB PO (07:59)
[2023-10-24] MEDS: predniSONE 20 MG TAB 40 MG PO (07:59)
[2023-10-24] MEDS: Propranolol 20 MG TAB PO (07:59)
[2023-10-24] MEDS: Atorvastatin 40 MG TAB PO (07:59)
[2023-10-24] MEDS: Pantoprazole 40 MG TABCR PO (08:00)
[2023-10-24] MEDS: Tiotropium Bromide-Respimat 10 PUFF INH 2 PUFF IH (08:14)
[2023-10-24] MEDS: Budesonide/Formoterol 160/4.5 6 GM 60 PUFF INH IH (08:14)
--- NOTE | 2023-10-24 08:25 | PT.INIE ---
PT Notes Visit Reasons: COPD Physical Therapy Inpatient Initial Evaluation Date: 10/24/2023 Referring Doctor: Parmjit Romero MD PT Orders: PT CONSULT: Extended Stay weakness. Exacerbation Chronic Cond Precautions: Fall. Standard. Activity as tolerated. Patient Profile/Admitting Diagnosis: Kit is a 63-year-old male Cornel is a 63-year-old male admitted for management of respiratory failure with hypoxia and COPD exacerbation. PMHX: All Active Problems COPD with exacerbation (Acute) Epicondylitis, lateral, left (Acute) Shortness of breath (Acute) COPD exacerbation (Acute) COVID (Acute) Right lateral epicondylitis (Acute) Medical History COPD (chronic obstructive pulmonary disease) Obstructive sleep apnea Surgical History History of appendectomy Social History/Home Situation: Lives with in an apartment with 28 steps to enter. Independent with all aspects of ADLs prior to admission. Equipment Owned/DME: None Subjective: Verbalize apart from shortness of breath he does get as he has a front wheeled walker. Has had a system at home to maximize his energy conservation coordinating inhaler use with activity schedules. Objective: General Observation: Telemetry monitoring in place Mental Status: Alert and oriented as to person, place, time, and purpose. Able to pay attention, focus, and respond appropriately. Pain: None reported Vital Signs: oxugen saturation staying WNL throughout session ROM: Right Upper Extremity: Shoulder Flexion WFL. Shoulder abduction WFL. Elbow flexion WFL. Wrist flexion WFL. Functional opening and closing of hand WFL. Left Upper Extremity: Shoulder Flexion WFL. Shoulder abduction WFL. Elbow flexion WFL. Wrist flexion WFL. Functional opening and closing of hand WFL. Right Lower Extremity: Hip flexion WFL. Hip abduction WFL. Knee flexion WFL. Ankle dorsiflexion WFL. Ankle plantarflexion WFL. Left Lower Extremity: Hip flexion WFL. Hip abduction WFL. Knee flexion WFL. Ankle dorsiflexion WFL. Ankle plantarflexion WFL. Strength: Right Upper Extremity: Shoulder flexors 4/5. Shoulder abductors 4/5. Elbow flexors 4/5. Elbow extensors 4/5. Furniture Stainer strong. Left Upper Extremity: Shoulder flexors 4/5. Shoulder abductors 4/5. Elbow flexors 4/5. Elbow extensors 4/5. Furniture Stainer strong. Right Lower Extremity: Hip flexors 4/5. Hip abductors 4/5. Knee flexors 5/5. Knee extensors 4/5. Ankle dorsiflexors 4/5. Ankle plantarflexors 4/5. Left Lower Extremity: Hip flexors 4/5. Hip abductors 4/5. Knee flexors 5/5. Knee extensors 4/5. Ankle dorsiflexors 4/5. Ankle plantarflexors 4/5. Bed Mobility/Transfers: Minimal cueing provided for use of B hands as needed for support, movement sequence, AD management, and posture to reduce fall risk and minimize pain report Sit to stand stand by assist with FWW Stand to sit stand by assist with FWW Gait: Facilitated safe and correct performance of level surface ambulation covering a distance 50 feet x 2 using front wheeled walker with step to gait pattern requiring standby assist with oxygen saturation ranging from 80% to 92% room air, mild shortness of breath resolved with rest. Minimal verbal cueing provided for AD management, directional changes, energy conservation techniques. Balance: Static Sitting: Normal Dynamic Sitting: Normal Static Standing: Fair Dynamic Standing: Fair Special Tests: Mobility Limitations Standardized Measure [facility] 6 clicks Basic Mobility Inpatient Short Form: Raw Score: 11 CMS Score: 23% deficit 4-Stage Balance Test: Feet together 10 seconds semi-tandem 10 seconds Full tandem <10 seconds One-legged stance <10 seconds Informed Consent/Education: Patient was instructed in purpose of PT consult and plan of care. Agreeable to proceed with established PT POC to achieve personal goals. ASSESSMENT: Short of breath with ambulation activity but oxygen saturation stayed 88%-92% throughout activity. Good ability to pace self. Will benefit from using FWW for energy conservation and support. Patient presents with clinical signs and symptoms consistent with current/admitting diagnoses that have resulted to mobility limitations, gait instability, generalized weakness, and overall ADL decline as demonstrated by the following impairment level findings: 1. Impaired standing balance 2. Impaired activity tolerance 3. Shortness of breath Impairments are contributing to the following functional limitations: 1. Decline in bed mobility skills 2. Decline in transfer skills 3. Difficulty with ambulation without assistive device and physical assistance 4. Increased completion time for mobility ADL performance 5. Increased risk for falls 6. Difficulty with managing steps alone safely [place] [address]65 moderate complexity based on the following: History: 63-year-old male with past medical history as indicated above Examination: Demonstrable impairment in strength, balance, and mobility level with underlying impairments and functional limitations as exhibited above as well as deficit score of 23% utilizing the [facility] Mobility Inpatient Short Form Presentation: Evolving Decision Makin moderate complexity Goals: Goals X1 week 1. Supine-Sit independent 2. Sit-Supine independent 3. Sit-Stand independent 4. Stand-Sit independent with FWW 5. Bed-Chair independent with FWW 6. Chair-Bed independent with FWW 7. Independent gait on level surface with use of FWW for at least 300 feet without report of pain nor dyspnea 8. Independent stair negotiation while holding onto B rails for at least 28 steps without report of pain nor dyspnea 9. Independent with home exercise program 10. Good static and dynamic standing balance/tolerance Plan of Care/Treatment Plan: 1-2x/day, 7 days/week x 1 week. Plan of care has been reviewed with the BATHHOUSE ATTENDANT providing the service under Physical Therapy direction. Initiate Physical Therapy intervention for pain management as needed, strengthening, bed mobility, transfers, gait, stairs, balance training, and use of assistive device. DISCHARGE RECOMMENDATIONS: Home with no services [] [X] Home with services. Patient will benefit from home health PT services in order to progress mobility level using least restrictive assistive ambulatory device, assess home safety, identify additional equipment needs, and establish a functional maintenance program that will increase ability of patient to remain at home. [] Home with outpatient PT [] [] SNF for continued rehabilitation [] [] [facility] Care [] [] SNF versus LTC based on ability to participate and progress [] TREATMENT CODE/TIME: 08985 x 21 minutes for 1 unit (8:25-8:46). Thank you for the opportunity to participate in the care of this patient. Annika Boucher PT, DPT, CLT [facility] [place], [place]
--- NOTE | 2023-10-24 08:35 | PDOC.CMDIS ---
Date of service: 10/24/23 Time of Service: 08:35 LACE Index Scoring Tool Questions: Length of Stay (in days): 2 Was the patient admitted via the E.D.?: Yes Comorbidities: Chronic Pulmonary Disease E.D. Visits: 4 Answers: Total Score: 11 Risk of Readmission: High Risk Care Management Discharge Plan Reason for Hospitalization: COPD with Exacerbation Discharge Plan: Kit is discharged home with New [facility] RN, PT, COORDINATOR OF GENETIC SERVICES services. Driven via private vehicle with friend. He will follow up with his community providers and his discharge plan of care as instructed. Patient/Family Education Needs: Review discharge instructions, limitations, medications and plan to follow up with community providers. Discuss ask me three. Services Needed at Discharge: Home Health Care Services ([facility], coordinated by [facility]) SDOH Health Related Social Needs: No Data to Display
--- NOTE | 2023-10-24 09:24 | DSE_ITS ---
Date of service: 10/24/23 Time of Service: 09:24 DS: Diagnosis Discharge Diagnosis (1) Respiratory failure with hypoxia and hypercapnia: Status: Acute (2) COPD with exacerbation: Status: Acute (3) Smoker: Status: Acute Discharge Plan Disposition Patient Disposition: Home W/Home Health Services Condition: Improving Discharge Details Reason For Visit: COPD Admit Date/Time: 10/22/23 16:36 Admit Provider: Sedrick Brand Attending Provider: Sedrick Brand Primary Care Provider: Milagro Sanchez Hospital Course Hospital Course: 63-year-old male with history of COPD not on home oxygen continues to smoke about 2 cigarettes a day presented to the emergency department on 10/20/2023 with progressive dyspnea over the last several days. No associated fever chills or rigors. Noted to be acutely dyspneic and emergency department in acute respiratory distress requiring supplemental oxygen. He was tachypneic respiratory rate 24 tachycardic heart rate 106 and hypertensive blood pressure 170/121. He was placed on 2 L nasal cannula but then when he was found to be hypercapnic and hypoxemic required BiPAP. See emergency note for details. Patient was given Solu-Medrol 125 mg a couple of DuoNeb treatments in the emergency department and then admitted to the intensive care unit to the hospital service where he was treated with IV Solu-Medrol scheduled doses of DuoNeb, his Breztri was substituted with Symbicort and Spiriva. Patient was placed on GI prophylaxis with Protonix. Patient refused to wear his BiPAP because it caused him severe nausea and vomiting. However he was placed on high flow nasal cannula and as he improved he was weaned to regular nasal cannula and eventually was transitioned to room air. At the time of discharge she was room air saturation on room air physical therapy was consulted to evaluate him for discharge. Did recommend home health PT. Pulse oximetry was monitored while he was ambulated for respiratory therapy. His oxygen saturation remained 90% or better. Patient was treated with doxycycline while in the hospital for acute bronchitis. Chest imaging included chest CT which showed no PE no infiltrates but severe emphysematous changes. Patient be discharged home on a prednisone taper beginning at 40 mg daily for 5 days, followed by prednisone 30 mg daily x 3 days, 20 mg daily x 3 days, 10 mg daily x 3 days and 5 mg daily x 3 days. Will be discharged home on Z-Chase and Mucinex. Patient states he already has all of his other rescue inhalers and nebulizers and Breztri. Patient should follow-up with his primary care provider within the next week. Home health including nursing and PT will be ordered for him initially until he is independent enough that he can attend outpatient PT. Home Meds and New Rx's Prescriptions: New prednisone 10 mg tablet See Rx Instructions .ROUTE .COMPLEX Qty: 50 0RF Taper: Prednisone 10mg taper 40 mg Daily for 5 Days and 0 Hour 30 mg Daily for 3 Days and 0 Hour 20 mg Daily for 3 Days and 0 Hour 10 mg Daily for 3 Days and 0 Hour 5 mg Daily for 3 Days Rx Instructions: See Taper orally, 40 mg/d x 5d, 30 mg/d x 3d, 20 mg/d x3d, 10 mg/d x 3 d, 5 mg/d x 3d guaifenesin [Mucinex] 1,200 mg tablet extended release 12hr 1,200 mg PO BID Qty: 20 0RF azithromycin 250 mg tablet See Rx Instructions .ROUTE .COMPLEX Qty: 6 0RF Rx Instructions: For 250 mg dose pack: take 500 mg today (day 1), then 250 mg for 4 days (days 2-5) Continued acetaminophen 500 mg Tablet 1,000 mg PO PRN PRN lisinopril 5 mg tablet 5 mg PO DAILY AM Patient Comments: TAKE ONE TABLET BY MOUTH EVERY DAY. AM. (DME) nebulizer and compressor [Comp-Air Nebulizer Compressor] Device MISCELLANEOUS Patient Comments: USE 1 DEVICE DIRECTED EVERY 4 HOURS WHILE AWAKE NEEDED Breztri Aerosphere 160-9-4.8 mcg/actuation HFA aerosol inhaler 2 inh INHALATION BID Patient Comments: INHALE TWO PUFFS BY MOUTH TWICE A DAY atorvastatin 40 mg tablet 40 mg PO DAILY Patient Comments: TAKE ONE TABLET BY MOUTH EVERY DAY. AM. ipratropium-albuterol 0.5 mg-3 mg(2.5 mg base)/3 mL solution for nebulization 3 ml INHALATION Q6H PRN Patient Comments: INHALE THE CONTENTS OF ONE VIAL VIA NEBULIZER EVERY 4 TO 6 HOURS NEEDED albuterol sulfate [Ventolin HFA] 90 mcg/actuation HFA aerosol inhaler 2 inh inhalation Q6H PRN nortriptyline 50 mg capsule 50 mg PO DAILY Patient Comments: TAKE ONE CAPSULE BY MOUTH EVERY DAY. HS. propranolol 40 mg tablet 20 mg PO BID Patient Comments: Pt reports recent dose change to 10mg once daily in AM. Discharge Instructions Instructions: Prednisone (By mouth), Azithromycin (By mouth), Chronic Lung Disease and Infection Prevention (DC), Energy Conservation Techniques (DC), Dyspnea Scale and Exercise (DC) Additional Instructions: you were treated for acute exacerbation of your COPD w/ acute purulent bronchitis. You were treated w/ iv antibiotics and iv and oral corticosteroids along w/ aerosolized bronchodilators. You should continue your home aerosol treatments every 4 hours while awake for next week. you are being put on a taper of prednisone to help with inflammation in your lungs and being sent w/ an prescription for azithromycin, an oral antibiotic that also has antiinflammatory effects. We did an exercise oxygen test and you did not require supplemental oxygen w/ short walks around the nursing unit. If you get worsening shortness of breath not relieved by your nebulizer or your oxygen levels are falling below 88% and remaining down despite rest and use of your nebulizer, please return to the emergency room as you may be experiencing worsening of your COPD. You did not have pneumonia on your chest images. However, we did give you the pneumococcal 20 vaccination. You should follow this up in 8 weeks w/ the pneum ococcal 23 vaccination to provide you w/ complete protection against the various strains of Streptococcal pneumonia. Also, if you have not completed your COVID vaccination you should discuss doing so w/ your primary care provider. Please refrain from any form of smoking and avoid prolonged exposure to second hand smoke. Continue your Breztri as previously prescribed. Activity:: Activity as Tolerated Equipment/Supplies:: No Equipment Needed Diet:: Normal Diet Discharge Orders Discharge Orders: Discharge Order (Routine); Ordered 10/24/23 Ordered By: Parmjit Booth DS: Summary Summary Time spent discussing smoking cessation with patient: 3 to 10 minutes Time Spent with Patient providing and/or coordinating discharge services: Greater than 30 minutes Specific discharge activities: Interview/exam of patient; review of discharge instructions, completion of prescriptions/discharge instructions; discussion w/ nursing and CM; documentation of hospital visit Status at Discharge Functional status at discharge: independent ambulation Overall status at discharge: patient is progressing back to baseline Mental Status: mental status grossly normal Speech and Movement: speech and movement normal Mood: congruent mood Affect: normal affect Quality:SDOH Health Related Social Needs: No Data to Display Exam Narrative Exam Narrative: Kit is sitting up in his chair, recovering from his walk for P.T. He remains on room air, he appears mildly dyspneic w/ prolonged conversation however, he just came back from his walk and by the time we completed his visit he was recovered. Patient is asking to go home today. he feels ready. Lungs: scattered expiratory wheezes, no rhonchi or rales Heart: RRR, rhythm sinus per monitor and rate is 86 bpm Extremities: no edema Psych Mental Status: mental status grossly normal Speech and Movement: speech and movement normal Mood: congruent mood Affect: normal affect DS: Data Vitals/I&O Vitals and I&O: Vital Signs Temperature 37.1 C 10/23/23 21:04 Temperature Source Temporal Artery Scan 10/23/23 21:04 Pulse 81 10/24/23 06:32 Pulse Rhythm Regular 10/23/23 16:30 Pulse 82 10/24/23 06:32 Respiratory Rate 18 10/24/23 05:55 Respiratory Effort Normal 10/23/23 20:57 Respiratory Depth Normal 10/23/23 20:57 Respiratory Pattern Normal 10/23/23 20:57 Blood Pressure 110/72 10/24/23 06:32 Blood Pressure Mean 84 10/24/23 06:32 Blood Pressure Position Sitting 10/22/23 12:30 Pulse Oximetry 94 10/24/23 06:32 Oxygen Delivery Method Nasal Cannula 10/24/23 05:45 Oxygen Flow Rate 1 10/24/23 05:45 Fraction of Inspired Oxygen (FIO2) 24 10/21/23 19:58 Pain Level 0 10/23/23 00:28 Comment resp tx given by RT 10/23/23 00:34 Comment 5L hi flow nasal cannula 10/22/23 07:00 Intake & Output 10/23/23 10/23/23 10/24/23 11:59 23:59 11:59 Intake Total 200 / 1050 850 / 1050 240 / 240 Output Total 1400 / 2225 825 / 2225 350 / 350 Balance -1200 / -1175 25 / -1175 -110 / -110 Weight 73.8 kg 70.3 kg Intake: Oral 200 / 1050 850 / 1050 240 / 240 Output: Urine 1400 / 2225 825 / 2225 350 / 350 Other: Urine Color Light Adri Light Adri Yellow Urine Appearance Clear Clear Clear Urine Odor None Comment BSC Stool Size Large Stool Characteristics Soft Formed Brown Voiding Methods Urinal Bedside Commode Urinal PFSH All Active Problems (Updated 10/22/23 @ 13:13 by Parmjit Booth MD) DVT prophylaxis (Acute) Smoker (Acute) Respiratory failure with hypoxia and hypercapnia (Acute) COPD with exacerbation (Acute) Epicondylitis, lateral, left (Acute) COPD exacerbation (Acute) COVID (Acute) Right lateral epicondylitis (Acute) Medical History (Updated 10/22/23 @ 13:13 by Parmjit Booth MD) COPD (chronic obstructive pulmonary disease) Obstructive sleep apnea Surgical History History of appendectomy Social History Smoking/Tobacco Use Status: Current every day Tobacco Type: cigarettes Smoking risk assessment performed?: Yes Alcohol Intake: never Drug use: Never Substance use type: does not use Housing: apartment Do you feel safe at home: Yes Do you feel safe in your relationship?: Yes Time Spent with Patient Time Spent with Patient: 45-69 minutes Time was spent: preparing to see the patient(eg.review tests), ordering medications,tests, procedures, referring, communicating with other health healthcare administrative assistant, indepentently interpreting results, counseling the patient and care coordination
--- NOTE | 2023-10-24 09:40 | PDOC.HHF2F_ITS ---
Home Health Referral Home Health Orders Clinical synopsis of why skilled professionals are needed: home nursing to monitor progression of treatment of his COPD exacerbation, monitor for worsening dyspnea, instruct on breathing conservation techniques, proper use of his meds and to coordinate any med changes w/ his PCP. Home P.T. to improve his strength, endurance, better breathing program and to improve his independent ADL performance. Medical diagnosis necessitation home health referral: COPD exacerbation Registered Nurse: Check all that apply Instruct on new or changed medication(s)/assess compliance: Ordered Assess for exacerbation of medical condition, instruct patient/caregivers on signs and symptoms to report for early detection: Ordered Physical Therapist: Check all that apply Increase strength & endurance for safe mobility at home: Ordered To design/establish home maintenance program: Ordered Better Breathing Program: Ordered Meteorological Observer: Assist with community resources: Ordered Home Bound Status Requires the aid of supportive device (check all that apply): Walker Patient has a condition such that leaving home is medically contraindicated (Describe): COPD Describe why leaving home would require a considerable and taxing effort: Requires frequent rest periods Encounter Date and Reason: I certify that a FTF encounter for this patient was performed on October 24, 2023 and that such encounter was related to the primary reason the patient requires home health services. The encounter was conducted in the following manner: * By me as the certifying physician, DIESEL ENGINE I PIPE FITTER, PA or * By an inpatient physician, DIESEL ENGINE I PIPE FITTER or PA during an inpatient stay who communicated findings to me, Certification And Authentication I certify that I composed the above information based on my clinical judgment relating to this patient's medical condition and, if applicable, clinical findings communicated to me by the NPP or inpatient physician who performed the FTF encounter. Name of Provider that will be monitoring home health services: Milagro Sanchez
--- NOTE | 2023-10-24 09:45 | RT.EKG_ITS ---
APPROVED REPORT Exam: Resting ECG Reason for Exam: Patient Location: I HR:76 bpm ECG Measurements Heart Rate 76 AXIS WY 131 P 2 QRSd 113 QRS 98 QT 364 T 68 QTc 410 Conclusion Sinus rhythm...normal P axis, V-rate 50- 99 Right axis deviation
[2023-10-24] MEDS: Doxycycline Hyclate 100 MG CAP PO (10:42)
--- NOTE | 2023-10-24 10:50 | RESPIRATORY ---
Exercise Oximetry Assessment Patient ambulated with walker approx. 25 ft with frequent stops and wanted to go back to his chair. Pt states that he walks his dog at home and takes 28 steps to get into his house. Pt did report chest tightness during recovery period which was immediately reported to RN and EKG performed shortly after. Resting SPO2 on RA 90%, HR 89, RR 28 Lowest SPO2 during ambulation 88% Recovery SPO2 89%, HR 91, RR 23
[2023-10-24 11:09] LABS: Troponin I < 50 ng/L (< or =60)
[2023-10-24 12:51] LABS: Troponin I < 50 ng/L (< or =60)
== END 2023-10-24 14:20 | disposition home health service (06) | DRG 190 ==
LOC: ER 21:01 → ICU 21:55
PROVIDERS: Family Medicine; Internal Medicine; Admitting Provider General Practice; Emergency Provider Emergency Medicine; PCP Nurse Practitioner Family; Visit Provider General Practice
DX: J44.1 Chronic obstructive pulmonary disease with (acute) exacerbation (principal); J96.21 Acute and chronic respiratory failure with hypoxia; J96.22 Acute and chronic respiratory failure with hypercapnia; G47.33 Obstructive sleep apnea (adult) (pediatric); F17.210 Nicotine dependence, cigarettes, uncomplicated; R07.9 Chest pain, unspecified
CPT/HCPCS: 00123; 36415; 71275; 80053; 82805; 84145; 87637; 90677; 93005; 94618; 94640; 96365; 96367; 96372; 96375; 96376; 97162; 99291; 71045; 83735; 84484; 85025; 93010; 94660; 94664; 94667; 94668; 94760; 99222; 99231; 99232; 99233; 99239; G0378; J0456; J2405; J2470; J2919; J3105; J3360; J3475; J3490; J7512; J7613; J7620

== ENCOUNTER 2023-11-26 03:37 | Outpatient (CLI) | payer MEDICARE, SELFPAY ==
[2023-11-26] MEDS: Levalbuterol HFA 15 GM INH 4 PUFF IH (14:15)
[2023-11-26] MEDS: Inhaler, Assist Device 1 EACH MC (14:15)
--- NOTE | 2023-12-03 09:44 | W.PFT ---
Date of service: 11/26/23 Time of Service: 13:04 Pulmonary Function Test Result Requesting Provider Milagro Sanchez Indications: MAKENZIE. WYNNE Interpretation Spirometry: abnormal Lung Volumes: abnormal Diffusion Capacity: abnormal Impression Very severe obstructive ventilatory defect w/ significant reversibility after albuterol. Moderate restrictive ventilatory defect w/ air trapping. Severe decrease in Diffusion. Flow volume curve suggests obstruction. Clinical Correlation therefore is recommended.
== END 2023-11-26 03:38 | disposition home or self-care (01) ==
LOC: RT 03:37
PROVIDERS: PCP Nurse Practitioner Family; Visit Provider Nurse Practitioner Family
DX: G47.33 Obstructive sleep apnea (adult) (pediatric) (principal); J44.9 Chronic obstructive pulmonary disease, unspecified
CPT/HCPCS: 00123; 94060; 94726; 94729

== ENCOUNTER → 2023-12-16 09:13 | Outpatient (BNVA) | payer MEDICARE, SELFPAY | PROVIDERS: PCP Nurse Practitioner Family; Referring Provider Nurse Practitioner Family; Visit Provider Internal Medicine Critical Care Medicine | DX: J43.2 Centrilobular emphysema (principal); Z87.891 Personal history of nicotine dependence | CPT/HCPCS: 99215 ==

== ENCOUNTER 2024-01-15 07:35 | Emergency (ER) | payer MEDICARE, SELFPAY ==
--- NOTE | 2024-01-15 07:45 | RT.EKG_ITS ---
APPROVED REPORT Exam: Resting ECG Reason for Exam: RUE pain Patient Location: E HR:64 bpm ECG Measurements Heart Rate 64 AXIS DE 179 P 83 QRSd 99 QRS 103 QT 386 T 74 QTc 398 Conclusion Sinus rhythm...normal P axis, V-rate 60- 99 sinus rhythm, normal axis, normal intervals, nonischemic
--- NOTE | 2024-01-15 07:45 | DI.RAD_ITS ---
Exam(s) XR CHEST 2V PA LATERAL EXAM: XR CHEST 2V PA LATERAL CLINICAL HISTORY: RUE pain decreased pulses TECHNIQUE: 2D digital imaging was performed. Two views. COMPARISON: CT CT CHEST PE CTA from 10/21/2023 FINDINGS: HEART: Normal size. Aorta: Not dilated. PULMONARY VASCULATURE: Normal. MEDIASTINUM: Unremarkable. LUNGS: Clear. Emphysematous changes. PLEURAL SPACE: No pleural effusion or pneumothorax. BONE:Stable mild midthoracic compression fractures. SOFT TISSUES: Unremarkable. IMPRESSION: No acute abnormality. DATA REPOSITORY: RADIATION DOSE DELIVERED:
--- NOTE | 2024-01-15 07:51 | W.ED.GENAD ---
Discharge Plan Disposition Patient Disposition: Transfer-Acute Inpatient Care Specific Acute Inpt Facility: [facility] Condition: Stable Discharge Details Chief Complaint: Orthopedic Clinical Impression: Stenosis of right subclavian artery Primary Care Provider: Milagro Sanchez ED Provider: Joao Rosario Home Meds and New Rx's Prescriptions: No Action acetaminophen 500 mg Tablet 1,000 mg PO PRN PRN lisinopril 5 mg tablet 5 mg PO DAILY AM Patient Comments: TAKE ONE TABLET BY MOUTH EVERY DAY. AM. (DME) nebulizer and compressor [Comp-Air Nebulizer Compressor] Device MISCELLANEOUS Patient Comments: USE 1 DEVICE DIRECTED EVERY 4 HOURS WHILE AWAKE NEEDED Breztri Aerosphere 160-9-4.8 mcg/actuation HFA aerosol inhaler 2 inh INHALATION BID Patient Comments: INHALE TWO PUFFS BY MOUTH TWICE A DAY atorvastatin 40 mg tablet 40 mg PO DAILY Patient Comments: TAKE ONE TABLET BY MOUTH EVERY DAY. AM. ipratropium-albuterol 0.5 mg-3 mg(2.5 mg base)/3 mL solution for nebulization 3 ml INHALATION Q6H PRN Patient Comments: INHALE THE CONTENTS OF ONE VIAL VIA NEBULIZER EVERY 4 TO 6 HOURS NEEDED albuterol sulfate [Ventolin HFA] 90 mcg/actuation HFA aerosol inhaler 2 inh inhalation Q6H PRN nortriptyline 50 mg capsule 50 mg PO DAILY Patient Comments: TAKE ONE CAPSULE BY MOUTH EVERY DAY. HS. propranolol 40 mg tablet 20 mg PO BID Patient Comments: Pt reports recent dose change to 10mg once daily in AM. HPI General Date/Time Provider Initiated Documentation: 01/15/24 07:48. HPI Narrative: 63-year-old male history of hypertension atherosclerosis presents with atraumatic right forearm and wrist discomfort this morning aching in nature Related Data Home Medications ?Medication ?Instructions ?Recorded ?Confirmed acetaminophen 500 mg tablet 1,000 mg PO PRN PRN 03/07/18 01/15/24 lisinopril 5 mg tablet 5 mg PO DAILY AM 04/15/21 01/15/24 nebulizer and compressor (Comp-Air 04/15/21 01/15/24 Nebulizer Compressor) budesonide 160 mcg-glycopyr 9 2 inh inhalation BID 02/01/22 01/15/24 mcg-formot 4.8 mcg/actuation HFA inhaler (Breztri Aerosphere) atorvastatin 40 mg tablet 40 mg PO DAILY 02/14/23 01/15/24 ipratropium 0.5 mg-albuterol 3 mg 3 ml inhalation Q6H PRN 04/24/23 01/15/24 (2.5 mg base)/3 mL nebulization soln albuterol sulfate 90 mcg/actuation 2 inh inhalation Q6H PRN 10/21/23 01/15/24 aerosol inhaler (Ventolin HFA) nortriptyline 50 mg capsule 50 mg PO DAILY 10/22/23 01/15/24 propranolol 40 mg tablet 20 mg PO BID 10/22/23 01/15/24 Allergies Allergy/AdvReac Type Severity Reaction Status Date / Time aspirin Allergy Intermediate Skin Rash Verified 01/15/24 08:01 crab Allergy Anaphylaxsi Verified 01/15/24 08:01 s hydrocodone (Hydrocodone) AdvReac Severe dizzy and Verified 01/15/24 08:01 nausea oxycodone AdvReac Unknown Nausea Verified 01/15/24 08:01 lobster Allergy Anaphylaxsi Uncoded 01/15/24 08:01 s General BRAEDEN: 2 Exam Narrative Exam Narrative: Moderately uncomfortable Alert oriented interactive Normal heart sounds No respiratory distress speaking full sentences Abdomen soft nontender nondistended Range of motion bilateral upper extremities and lower extremities No external signs of trauma right upper extremity, median radial and ulnar sensory distribution intact, fingers cool to the touch and slightly pale, faint radial pulse no palpable ulnar pulse; strong radial pulse left upper extremity, warm well-perfused left upper extremity Medical Decision Making 63-year-old male presents with right upper extremity discomfort in forearm and wrist, atraumatic, concern for arterial occlusion given pallor and fingers faint radial pulse nonpalpable ulnar pulse cool hand, compared to left upper extremity, muscles consider vasospasm lower suspicion for aortic pathology given no chest pain or back pain. Normal mental status no respiratory compromise. Will obtain stat CTA upper extremity. Analgesia coags close reassessment likely vascular consultation pending image 9: 53 evidence of severe subclavian stenosis related to plaque poor distal flow seen on CTA, was able to visualize right radial pulse with Doppler on ultrasound, faint ulnar pulse as well. Awaiting consultation with vascular team for further treatment plan 12: 18 have initiated heparin drip. Discussed case with vascular surgeon Dr. Alif who has accepted patient for ED to ED transfer for potential vascular intervention. Quality:SDOH Health Related Social Needs: No Data to Display PFSH All Active Problems (Updated 01/15/24 @ 12:19 by Joao Rosario MD) Stenosis of right subclavian artery (Acute) Personal history of nicotine dependence (Acute) Essential (primary) hypertension (Acute) Cough (Acute) Atherosclerosis (Acute) Lung field abnormal (Acute) Anemia (Chronic) Dyspnea (Acute) Compression fracture of vertebral column (Acute) Smoker (Acute) COPD with exacerbation (Acute) Epicondylitis, lateral, left (Acute) COPD exacerbation (Acute) COVID (Acute) Right lateral epicondylitis (Acute) Medical History (Updated 01/15/24 @ 12:19 by Joao Rosario MD) 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 Abdominal aortic aneurysm without rupture COPD (chronic obstructive pulmonary disease) Obstructive sleep apnea Surgical History (Updated 12/02/23 @ 14:22 by Roya Monteiro) History of appendectomy Family History (Updated 12/02/23 @ 14:17 by Roya Monteiro) Brother Cancer Social History (Updated 12/16/23 @ 09:54 by Betty Govea MD) Smoking/Tobacco Use Status: Former Tobacco Use tobacco type: cigarettes Smoking risk assessment performed?: Yes Alcohol Intake: never Drug use: Never Substance use type: does not use Housing: apartment Do you feel safe at home: Yes Do you feel safe in your relationship?: Yes Additional Social history: Former smoker:3/4pack a day quit 1-5 yrs ago.last cigarette (10/20/23) For 40 years
[2024-01-15 08:00] VITALS: BP 101/80; PULSE 69; TEMP 37; O2SAT 100
[2024-01-15 08:22] LABS: Lactate 1.5 mmol/L (0.6-1.4)
[2024-01-15] MEDS: ACETAMINOPHEN 1,000 MG/100 ML BTL 400 MG IVPB (08:30)
[2024-01-15 08:32] LABS: Abs Immature Grans 0.02 10^3/uL (0.0-0.06); Absolute Basophil Count 0.02 10^3/uL (0.0-0.2); Absolute Lymphocyte Count 1.43 10^3/uL (1.2-3.4); Absolute Monocyte Count 0.71 10^3/uL (0.1-0.8); Absolute Neutrophil Count 6.09 10^3/uL (1.2-6.7); Basophils % 0.2 %; Eosinophils % 1.2 %; HCT 35.5 % (40.0-50.0); HGB 12.4 g/dL (13.5-17.5); Immature Grans % 0.2 %; Lymphocytes % 17.1 %; MCH 33.4 pg (27.0-33.0); MCHC 34.9 % (32.0-36.0); MCV 96 fL (80-95); MPV 9.1 fL (8.0-11.0); Monocytes % 8.5 %; Neutrophils % 72.8 %; Platelet Count 244 10^3/uL (130-400); RBC 3.71 10^6/uL (4.36-5.78); RDW 13.1 % (11.8-14.1); RDW-SD 46.3 fL; WBC 8.37 10^3/uL (4.4-10.8)
[2024-01-15] MEDS: Normal Saline - Diluent 50 ML VIAL IJ (08:36)
[2024-01-15 08:37] LABS: INR 1.1 (0.9-1.1); PTT Activated 26.3 sec (23.6-32.8); Prothrombin Time 10.8 sec (9.1-11.1)
[2024-01-15] MEDS: Omnipaque 350 MG/ML 100 ML BTL IJ (08:37)
--- NOTE | 2024-01-15 08:42 | DI.CT_ITS ---
Exam(s) CT UPPER EXTREMITY RT CTA EXAM: CT UPPER EXTREMITY RT CTA CLINICAL HISTORY: forearm wrist pain decreased pulses TECHNIQUE: Imaging Protocol: Axial computed tomography images with coronal and sagittal reformatted images were created and reviewed. CONTRAST MATERIAL: Intravenous: Omnipaque 350 Contrast volume:100 mL COMPARISON: CT CT CHEST PE CTA from 10/21/2023 FINDINGS: Bones: There is no evidence of fracture or dislocation. No lytic or sclerotic lesions are identified. Soft Tissues: Normal. Vasculature: There is combination of calcified and noncalcified plaque at the right brachiocephalic a nd proximal right subclavian artery. This causes significant stenosis of the proximal right subclavia n artery, at least 75 percent. This appears focal. The more distal arterial structures appear normal to the level of the distal forearm. The vessels are not yet opacified in the hand and wrist. There i s combination of calcific and noncalcific plaque at both common carotid bulbs but no significant sten osis of the internal carotid arteries. The right vertebral artery appears diminutive but patent. The left vertebral artery is dominant. There is mild calcifications at the aortic arch but no visible ane urysm. The venous structures are only opacified proximally to the level of the upper arm. Visualized portions of the chest show severe emphysematous changes in the upper lobes. IMPRESSION: Severe stenosis at the proximal right subclavian artery. Findings called to Dr. Rosario of the emergency department. RADIATION DOSE DELIVERED: Total DLP DATA REPOSITORY: All CT scans at this facility are submitted to the National Radiology Data Registry (NRDR) Dose Index Registry (DIR) with the [employer] ([employer]). RADIATION OPTIMIZATION: All CT scans at this facility use at least one of these dose optimization te chniques: automated exposure control; mA and/or kV adjustment per patient size (includes targeted exa ms where dose is matched to clinical indication); or iterative reconstruction.
[2024-01-15 09:03] LABS: ALT 19 U/L (16-63); AST 18 U/L (15-37); Alkaline Phosphatase 86 U/L (46-116); BUN 14 mg/dL (7-18); Bilirubin, Total 1.33 mg/dL (0.2-1.0); CREATININE 1.2 mg/dL (0.70-1.30); Calcium 9.2 mg/dL (8.5-10.1); Chloride 102 mmol/L (98-107); Creatine Kinase 48 U/L (39-308); Estimated GFR 67.11 (mL/min/1.73m2); Glucose 99 mg/dL (74-106); Magnesium 1.8 mg/dL (1.8-2.4); NT-proBNP 18 pg/mL (<300); Potassium 4.3 mmol/L (3.5-5.1); Sodium 140 mmol/L (136-145); Total Protein 7.4 g/dL (6.4-8.2); Troponin I < 50 ng/L (< or =60)
[2024-01-15] MEDS: Normal Saline 1,000 ML 1000 ML IV (10:19)
[2024-01-15 10:41] VITALS: BP 135/78; PULSE 78; RESP 16
[2024-01-15] MEDS: Heparin in 0.45% NaCl 25,000 UNIT/250 ML BAG 10 UNIT IV (12:31)
[2024-01-15 13:15] VITALS: BP 97/58; PULSE 61; RESP 18
== END 2024-01-15 13:57 | disposition short-term general hospital (02) ==
PROVIDERS: Emergency Provider Emergency Medicine; PCP Nurse Practitioner Family
DX: M79.601 Pain in right arm (principal); I77.1 Stricture of artery; Z87.891 Personal history of nicotine dependence
CPT/HCPCS: 73206; 80053; 82550; 86850; 86900; 86901; 93005; 96361; 96365; 96375; 99285; 71046; 83605; 83735; 83880; 84484; 85025; 85610; 85730; 93010; J0131; J1644; J3490

== ENCOUNTER 2024-08-11 12:45 | Outpatient (REF) | payer OTHER, SELFPAY ==
[2024-08-11 14:50] LABS: Abs Immature Grans 0.03 10^3/uL (0.0-0.06); Absolute Basophil Count 0.03 10^3/uL (0.0-0.2); Absolute Eosinophil Count 0.24 10^3/uL (0.0-0.7); Absolute Lymphocyte Count 1.78 10^3/uL (1.2-3.4); Absolute Monocyte Count 0.85 10^3/uL (0.1-0.8); Absolute Neutrophil Count 5.43 10^3/uL (1.2-6.7); Basophils % 0.4 %; Eosinophils % 2.9 %; HCT 37.8 % (40.0-50.0); HGB 12.8 g/dL (13.5-17.5); Immature Grans % 0.4 %; Lymphocytes % 21.3 %; MCH 33.1 pg (27.0-33.0); MCHC 33.9 % (32.0-36.0); MCV 98 fL (80-95); MPV 9.5 fL (8.0-11.0); Monocytes % 10.2 %; Neutrophils % 64.8 %; Platelet Count 281 10^3/uL (130-400); RBC 3.87 10^6/uL (4.36-5.78); RDW 14.1 % (11.8-14.1); RDW-SD 50.1 fL; WBC 8.36 10^3/uL (4.4-10.8)
[2024-08-11 15:31] LABS: ALT 31 U/L (16-63); AST 22 U/L (15-37); Albumin 4.1 g/dL (3.4-5.0); Alkaline Phosphatase 107 U/L (46-116); Anion Gap 8.8 mmol/L (3-11); BUN 19 mg/dL (7-18); Bilirubin, Total 1.3 mg/dL (0.2-1.0); CO2 29.2 mmol/L (21.0-32.0); CREATININE 1.3 mg/dL (0.70-1.30); Calcium 9.1 mg/dL (8.5-10.1); Calculated LDL 38 mg/dL (<100); Chloride 104 mmol/L (98-107); Cholesterol 120 mg/dL (<200); Estimated GFR 60.59 (mL/min/1.73m2); Glucose 93 mg/dL (74-106); HDL Cholesterol 53 mg/dL (>or=40); Potassium 5.3 mmol/L (3.5-5.1); Sodium 142 mmol/L (136-145); Total Protein 7.3 g/dL (6.4-8.2); Triglyceride 148 mg/dL (<150)
[2024-08-11 22:10] LABS: PSA, Screening 0.9 ng/mL (<=4.5)
== END 2024-08-11 12:46 | disposition home or self-care (01) ==
LOC: NCHCN 12:45
PROVIDERS: PCP Nurse Practitioner Family; Visit Provider Nurse Practitioner Family
DX: I10 Essential (primary) hypertension (principal); I70.8 Atherosclerosis of other arteries; Z12.5 Encounter for screening for malignant neoplasm of prostate
CPT/HCPCS: 80053; 80061; 84153; 85025

== ENCOUNTER 2024-08-17 02:02 | Outpatient (CLI) | payer MEDICARE, SELFPAY ==
--- NOTE | 2024-08-17 | DI.CTLCSR_ITS ---
Exam(s) CT CHEST LUNG CANCER SCREEN EXAM: CT CHEST LUNG CANCER SCREEN CLINICAL HISTORY: EX SMOKER, Z87.891, SCREENING FOR LUNG CANCER TECHNIQUE: Imaging Protocol: Axial computed tomography images with coronal and sagittal reformatted images were created and reviewed. Low dose screening protocol. COMPARISON: CT CT CHEST PE CTA from 10/21/2023 FINDINGS: Tracheobronchial tree: No bronchiectasis or mucus plugging. Mediastinum and Carlota: No dominant adenopathy or fluid collection. Pulmonary parenchyma: No consolidation or dominant measurable mass. There are severe emphysematous ch anges in the upper lobes and moderate to severe emphysematous changes in the lower lobes. Lung Nodules: 7 millimeter nodule in the lingula. 4 millimeter nodule posterior left lung base. Pleura: No effusion. No pneumothorax. Heart: The heart is not dilated. Mild coronary artery calcifications are seen. No pericardial effusio n. Aorta: Thoracic aorta non-dilated. Pulmonary arteries: Prominent which could indicate pulmonary hypertension. Upper abdomen: Unremarkable. Bones: Stable moderate T6 compression fracture. Stable mild T8 compression fracture. Soft Tissues: Unremarkable. IMPRESSION: 7 millimeter nodule in the lingula. Lung RADS Cat 3 - Probably Benign: Probably benign finding(s) - short term follow-up suggested; inclu de nodules with a low likelihood of becoming a clinically active cancer. Lung-RADS 1.0 CATEGORIES: Category 0 - Prior chest CT exam(s) being located for comparison. Category 1 - Annual screening in 12 months. No nodules or definitely benign nodules. Category 2 - Annual screening in 12 months. Benign appearance. Nodules with low likelihood of becomin g active cancer. Category 3 - 6-month follow-up. Probably benign. Short-term follow-up suggested. Nodules with low lik elihood of becoming active cancer. Category 4A - 3-month follow-up and CT/PET if >8 mm in size. Suspicious finding. Findings which requi re additional testing. Category 4B - Findings which require additional testing and tissue sampling. Category 4X - Category 3 or 4 nodules with additional features or imaging findings that increases the suspicion of malignancy. Modifier S- Potentially clinically significant findings (non lung cancer) RADIATION DOSE DELIVERED: !Error Total DLP DATA REPOSITORY: All CT scans at this facility are submitted to the National Radiology Data Registry (NRDR) Dose Index Registry (DIR) with the [employer] ([employer]). RADIATION OPTIMIZATION: All CT scans at this facility use at least one of these dose optimization te chniques: automated exposure control; mA and/or kV adjustment per patient size (includes targeted exa ms where dose is matched to clinical indication); or iterative reconstruction.
== END 2024-08-17 02:22 ==
PROVIDERS: PCP Nurse Practitioner Family; Visit Provider Nurse Practitioner Family
DX: Z87.891 Personal history of nicotine dependence (principal); Z12.2 Encounter for screening for malignant neoplasm of respiratory organs; R91.8 Other nonspecific abnormal finding of lung field
CPT/HCPCS: 71271

== ENCOUNTER 2024-08-25 01:05 | Outpatient (CLI) | payer MEDICARE, SELFPAY ==
--- NOTE | 2024-08-25 | DI.US_ITS ---
Exam(s) US AAA DIAGNOSTIC EXAM: US AAA DIAGNOSTIC CLINICAL HISTORY: ABDOMINAL AORTIC ANEURYSM W/O RUPTURE, I71.40 COMPARISON: CT CT ABDOMEN PELVIS W from 07/12/[address] CHEST PE CTA from 10/21/2023 FINDINGS: Abdominal Aorta: Proximal: 2.7 x 2.8 cm Mid: 2.4 x 2.5 cm Distal: 3.4 x 3.3 cm Iliac's: Right: 1.0 x 1.2 cm Left: 1.0 x 1.3 cm Atherosclerotic calcification is present. IMPRESSION: 3.4 x 3.3 cm distal abdominal aortic aneurysm. DATA REPOSITORY:
== END 2024-08-25 01:25 ==
LOC: DI 01:05
PROVIDERS: PCP Nurse Practitioner Family; Visit Provider Nurse Practitioner Family
DX: I71.40 Abdominal aortic aneurysm, without rupture, unspecified (principal)
CPT/HCPCS: 76775

== ENCOUNTER → 2024-11-25 13:39 | Outpatient (BNVA) | payer MEDICARE, SELFPAY | PROVIDERS: PCP Nurse Practitioner Family; Referring Provider Nurse Practitioner Family; Visit Provider Surgery | DX: Z12.11 Encounter for screening for malignant neoplasm of colon (principal) | CPT/HCPCS: S0285 ==

== ENCOUNTER 2024-12-10 12:10 | Day surgery (SDC) | payer MEDICARE, SELFPAY | END 2024-12-10 12:11 | disposition home or self-care (01) | LOC: SUR 01-20 12:11 | PROVIDERS: PCP Nurse Practitioner Family; Visit Provider Surgery | DX: Z53.9 Procedure and treatment not carried out, unspecified reason (principal) ==

== ENCOUNTER → 2025-05-25 13:25 | Outpatient (CLI) | payer MEDICARE, SELFPAY ==
--- NOTE | 2025-05-25 | DI.CT_ITS ---
Exam(s) CT CHEST WO EXAM: CT CHEST WO CLINICAL HISTORY: PULMONARY NODULE R91.1. TECHNIQUE: Imaging protocol: Axial computed tomography images were obtained and coronal and sagittal reformatted images were created and reviewed. Computer aided detection (CAD) was utilized. CONTRAST MATERIAL: Noncontrast COMPARISON: CT CT CHEST LUNG CANCER SCREEN from 08/17/2024 FINDINGS: Pulmonary parenchyma: No consolidation. Stable 7 millimeter nodule in the lingula, adjacent to the heart border. Stable 4 millimeter nodule posterior left lung base. No new nodules. Interstitial changes: None. Emphysema: There are severe emphysematous changes in the upper lobes. There are moderate to severe emphysematous changes in both lower lobes. Tracheobronchial tree: No mucous plugging. No bronchiectasis . Pleura: No effusion or pneumothorax. Heart: The heart is not dilated. The coronary arteries show mild calcifications. No pericardial effusion. Aorta: Thoracic aorta non-dilated. Mild atherosclerotic changes. Lymph nodes: No enlarged lymph nodes. Bones: Degenerative changes T5 and T7 compression fracture. Upper abdomen: Unremarkable. Soft tissues: Unremarkable. IMPRESSION: Stable 7 millimeter nodule in the lingula. Stable 4 millimeter nodule at the posterior left lung base. Severe emphysematous changes. RADIATION DOSE DELIVERED: 257.74mGy.cm Total DLP 257.74mGy.cm Total DLP DATA REPOSITORY: All CT scans at this facility are submitted to the National Radiology Data Registry (NRDR) Dose Index Registry (DIR) with the [employer] ([employer]). RADIATION OPTIMIZATION: All CT scans at this facility use at least one of these dose optimization techniques: automated exposure control; mA and/or kV adjustment per patient size (includes targeted exams where dose is matched to clinical indication); or iterative reconstruction.
== END ==
LOC: DI 13:25
PROVIDERS: PCP Nurse Practitioner Family; Visit Provider Nurse Practitioner Family
DX: R91.1 Solitary pulmonary nodule (principal)
CPT/HCPCS: 71250